=== PATIENT | male | born 1950 | race Caucasian/White ===

== ENCOUNTER 2021-09-20 10:36 | Outpatient (REF) | payer MEDICARE, SELFPAY ==
[2021-09-20 14:07] LABS: Hematocrit 40.9 % (42.0-52.0); Hemoglobin 14.1 g/dl (14.0-18.0); Mean Corpuscular HGB Conc 34.5 g/dl (31.0-36.0); Mean Corpuscular Hemoglobin 33.6 pg (27.0-33.0); Mean Corpuscular Volume 97.4 fL (80.0-98.0); Mean Platelet Volume 10.1 fL (9.4-12.4); Platelet Count 237 X10*3/uL (160-400); Red Cell Distribution Width 11.6 % (11.0-16.0); White Blood Count 4.8 X10*3/uL (4.8-10.8)
[2021-09-20 14:36] LABS: Alanine Aminotransferase 27 U/L (0-40); Albumin Level 4.3 g/dL (3.5-5.0); Alkaline Phosphatase 50 U/L (39-117); Anion Gap 10 (12-20); Aspartate Amino Transferase 22 U/L (5-37); Bilirubin Total 0.3 mg/dL (0.0-1.0); Blood Urea Nitrogen 13 mg/dL (9-16); Calcium 10.7 mg/dL (8.4-10.2); Carbon Dioxide 29 mmol/L (22-29); Chloride 102 mmol/L (96-108); Cholesterol 291 mg/dL; Estimated Glomerular Filt Rate > 60; Glucose Fasting 111 mg/dL (60-99); HDL Cholesterol 97 mg/dL; LDL Cholesterol Calculated 184 mg/dl; Potassium 4.9 mmol/L (3.3-5.1); Sodium 136 mmol/L (135-145); Total Protein 7.1 g/dL (6.5-8.0); Triglycerides 51 mg/dL
[2021-09-20 15:08] LABS: Prostate Specific Antigen 4.18 ng/mL (<0.05-4.0)
== END 2021-09-20 10:37 | disposition home or self-care (01) ==
LOC: HO.MANLDS 10:36
PROVIDERS: PCP Internal Medicine; Visit Provider Internal Medicine
DX: I10 Essential (primary) hypertension (principal); Z12.5 Encounter for screening for malignant neoplasm of prostate
CPT/HCPCS: 36415; 80053; 80061; 84153; 85027

== ENCOUNTER → 2022-11-09 10:07 | Outpatient (REF) | payer MEDICARE, SELFPAY ==
--- NOTE | 2022-11-09 10:18 | ECG_ITS ---
Test Reason : Superventricular Tachycardia Blood Pressure : / mmHG Vent. Rate : 097 BPM Atrial Rate : 097 BPM P-R Int : 188 ms QRS Dur : 086 ms QT Int : 324 ms P-R-T Axes : 072 066 068 degrees QTc Int : 411 ms Normal sinus rhythm Normal ECG No previous ECGs available Referred By: Jeffrey Gleason Electronically Signed By:ILYA LUNA
== END ==
LOC: HO.CARD 10:07
PROVIDERS: PCP Internal Medicine; Visit Provider Internal Medicine
DX: I47.1 Supraventricular tachycardia (principal)
CPT/HCPCS: 93005

== ENCOUNTER 2023-02-07 10:48 | Outpatient (REF) | payer MEDICARE, SELFPAY ==
[2023-02-07 13:12] LABS: Free T4 (Free Thyroxine) 0.97 ng/dL (0.71-1.85); Thyroid Stimulating Hormone 4.62 uIU/mL (0.32-4.0)
== END 2023-02-07 10:49 | disposition home or self-care (01) ==
LOC: HO.MANLDS 10:48
PROVIDERS: Visit Provider Physician Assistant
DX: Z79.899 Other long term (current) drug therapy (principal)
CPT/HCPCS: 36415; 84439; 84443

== ENCOUNTER 2023-02-20 09:09 | Outpatient (REF) | payer MEDICARE, SELFPAY ==
[2023-02-20 12:03] LABS: Prostate Specific Antigen 6.13 ng/mL (<0.05-4.0)
== END 2023-02-20 09:10 | disposition home or self-care (01) ==
LOC: HO.MANLDS 09:09
PROVIDERS: Visit Provider Physician Assistant
DX: Z12.5 Encounter for screening for malignant neoplasm of prostate (principal)
CPT/HCPCS: 36415; 84153

== ENCOUNTER 2023-04-20 09:51 | Outpatient (AMB) | payer MEDICARE, SELFPAY ==
--- NOTE | 2023-04-20 10:23 | MHC.OFFVIS ---
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[place] [facility] [place] Intake Note: NEw patient dx [place] [facility] [place] Event Producer Required: No Allergies amoxicillin [Augmentin] Allergy (Unknown, Verified 07/14/17 00:00) clavulanic acid [Augmentin] Allergy (Unknown, Verified 07/14/17 00:00) Medication List - Last Reconciled 04/20/23 by Naun Smith MD apixaban (Eliquis) 5 mg PO BID diltiazem HCl 180 mg PO DAILY folic acid 1 mg PO DAILY furosemide 40 mg PO DAILY pantoprazole 40 mg PO BID valsartan mg PO HPI HPI Comments History of Present Illness Details Thank you for referring Farhat in cardiology consultation today for management of atrial flutter. Patient is 72-year-old male with recent diagnosis of atrial flutter with LV systolic dysfunction when he presently him [facility] with symptoms of near syncope and rapid heart rate. He was diagnosed at that time with atrial flutter with rapid ventricular response and subsequent echocardiogram showed moderate LV systolic dysfunction with LVEF of 35-40%. He subsequently underwent a DANIKA guided cardioversion. At the time of DANIKA reported LV systolic function within normal limits. Although since then he has been started on oral anticoagulation therapy with Eliquis. He was also started on amiodarone therapy for rhythm control however this was recently discontinued by your office due to thyroid dysfunction. He also is currently not on metoprolol therapy again as he was interacting with amiodarone and giving in symptoms of fatigue. Since hospitalization has not had any further episodes of rapid heart rate and dizziness. However he says this episodes of rapid heart rate dizziness which were transient preceded this episode of hospitalization by many years. However he has never been diagnosed in the past with atrial flutter. He denies any exertional chest pain although he underwent a stress test recently which is suboptimal to diagnose ischemia with limited exercise capacity. Patient says since the hospitalizations back to his normal functional status and is able to do activity without restriction. Denies orthopnea, PND, leg edema. Currently on Lasix 40 mg says he goes to bathroom quite a bit. Review of Systems Const Denies chills, Denies daytime sleepiness, Denies fatigue, Denies fever(s), Denies frequent falls, Denies poor appetite, Denies snoring, Denies stops breathing during sleep, Denies weakness, Denies weight gain and Denies weight loss Eyes Denies loss of vision ENT Denies dizziness and Denies hearing loss Card Denies chest pain, Denies claudication, Denies leg edema, Denies lightheadedness, Denies palpitations, Denies dyspnea, Denies dyspnea on exertion and Denies orthopnea Resp Denies cough, Denies excessive phlegm production, Denies dyspnea, Denies dyspnea on exertion, Denies snoring and Denies wheezing GI Denies abdominal pain, Denies hematochezia, Denies change in bowel habits, Denies nausea and Denies vomiting Denies dysuria and Denies urinary frequency Musc Denies arthralgias, Denies muscle weakness, Denies numbness and Denies other (frequent falls) Skin/Breast Denies nail changes and Denies rash Neuro Denies Abnormal speech present, Denies dizziness, Denies frequent falls, Denies loss of vision, Denies memory loss, Denies numbness and Denies weakness Psych Denies depression and Denies memory loss Endo Denies fatigue and Denies palpitations Armond/Lymph Reports easy bruising and Reports other (anemia) Aller/Immun Denies wheezing Physical Exam Vital Signs: Last Vital Signs Pulse 62 04/20/23 10:27 BP 120/80 04/20/23 10:27 BMI result Body Mass Index 27.2 Const General: cooperative, comfortable, no acute distress, alert, awake and Physically active Nutritional Appearance: average body habitus Orientation/consciousness: patient oriented x3 Limitations: no limitations HEENT Head: Yes normocephalic and Yes atraumatic Neck Neck: Yes trachea midline, Yes supple and Yes no JVD Resp Effort & Inspection: normal respiratory effort Auscultation: clear to auscultation bilaterally Cardio Jugular venous distension: no JVD Palpation: normal PMI Rate: regular rate Rhythm: regular rhythm Heart sounds: S1 normal heart sound present, S2 normal heart sound present, no click, no gallops, no murmurs and no rubs GI Auscultation: normal bowel sounds Skin General skin exam: no rashes or lesions noted Neuro General: patient oriented x3 and no focal motor deficits Speech: No Abnormal speech present Extrem General: Yes no clubbing, cyanosis or edema Psych Appearance: grossly normal Office Procedures EKG Details: EKG shows normal sinus rhythm normal EKG at 62 beats per minute [id number], Complete Assessment & Plan Assessment & Plan (1) Paroxysmal atrial flutter: Code(s): I48.92 - Unspecified atrial flutter Plan: Patient with symptomatic atrial flutter leading to hospitalization with symptoms of rapid heart rate and near-syncope. His diagnosed with LV systolic dysfunction with subsequently undergoing DANIKA guided cardioversion. There was started amiodarone which has now discontinued because of thyroid dysfunction. Currently on diltiazem therapy. However he has done very well with rhythm control approach and has much improvement in symptoms. Will continue rhythm control approach. For now avoid antiarrhythmic drug unless he has recurrent symptoms at which time we can consider an alternative such as sotalol or Multaq. Continue to avoid stimulants including alcohol use. Continue full oral anticoagulation with Eliquis 5 mg b.i.d.. Semi annual renal function test should be pursued. Will obtain a 3 day Holter monitor in near future. 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 Although this is unclear. Would suggest exercise myocardial perfusion imaging rule out significant obstructive coronary disease. Also repeat echocardiogram near future to assess improvement in LV systolic function. For now continue valsartan therapy. He has no signs or symptoms of congestive heart failure. Will reduce Lasix to 20 mg daily and eventually if he remains euvolemic taper and discontinue diuretic therapy. Follow up in the clinic in 6 weeks time, sooner p.r.n.. Thank you for allowing me to partake in his care Orders: Orders CA echo limited Today I42.9 - Cardiomyopathy, unspecified CA stress test Today I48.92 - Unspecified atrial flutter NM cardiolite stress test 2 Weeks I48.92 - Unspecified atrial flutter, R07.9 - Chest pain, unspecified ECG 3 day holter monitor Today I48.92 - Unspecified atrial flutter Medications: New furosemide 20 mg PO DAILY Coding Level of Care Code New Pt Level 4 (48634) Diagnoses Paroxysmal atrial flutter I48.92 Cardiomyopathy I42.9 CPT Codes EKG - CPT: 80365-[id number], Complete ([id number])
[2023-04-20 10:27] VITALS: BP 120/80; PULSE 62; BMI 27.2
== END 2023-04-20 11:00 | disposition home or self-care (01) ==
PROVIDERS: PCP Internal Medicine; Referring Provider Internal Medicine; Visit Provider Internal Medicine Cardiovascular Disease
DX: I48.92 Unspecified atrial flutter (principal); I42.9 Cardiomyopathy, unspecified
CPT/HCPCS: 93010; 99204

== ENCOUNTER → 2023-04-20 09:51 | Outpatient (BNVA) | payer MEDICARE, SELFPAY | PROVIDERS: PCP Internal Medicine; Referring Provider Internal Medicine; Visit Provider Internal Medicine Cardiovascular Disease | DX: I48.92 Unspecified atrial flutter (principal); I42.9 Cardiomyopathy, unspecified | CPT/HCPCS: 93005; 99202 ==

== ENCOUNTER → 2023-05-08 09:30 | Outpatient (REF) | payer MEDICARE, SELFPAY ==
--- NOTE | ~2023-05-08 | NM_ITS ---
Myocardial perfusion study Indication: Chest pain to evaluate for myocardial ischemia Technique: The patient was brought in for a Lexiscan perfusion study on 05/08/2023. Patient performed low-level exercise and was injected 0.4 mg of Lexiscan intravenously. Within a minute of injection, 30 mCi of sestamibi was given intravenously. Images were obtained using the SPECT gamma camera interlaced with the gating device. Images were obtained in supine position. Resting perfusion study was performed on 05/10/2023. Patient was administered 30 mCi of sestamibi intravenously at rest. Images were then obtained in supine position. Images obtained with and without CT attenuation. Total DLP 76 mGy-cm. Images were processed with the software and compared side to side in short axis, horizontal long axis and vertical long axis views. Findings: The stress perfusion study showed non attenuated images show mildly reduced uptake in the basal and mid inferior wall of the LV myocardium. Main of the LV myocardium is normally perfused. Attenuation corrected images show normal uptake of radiotracer in all segments of LV myocardium. The gated study shows normal LV systolic function with calculated LVEF of 72%. LV cavity is normal size. The gated study shows normal systolic wall thickening and contraction of segments. Resting study shows no change in perfusion pattern compared to stress perfusion study. Gating at rest reveals normal systolic wall motion with ejection fraction at 59%. The findings are consistent with no reversible defect suggestive of ischemia or abnormal myocardial perfusion. NM/NM cardiolite stress test Impression: 1. Myocardial perfusion imaging study shows normal myocardial perfusion 2. Gated LVEF is 72% 3. Transient ischemic dilatation not present EKG is nondiagnostic for ischemia
--- NOTE | 2023-05-08 09:33 | CA_ITS ---
Acquisition Time: 2023-05-08 09:50:34 Total Exercise Time: 00:07:20 Test Indications: AFLUTTER Medications: SEE H Protocol: JEREMY Max HR: 131 BPM 87% of Pred: 149 BPM Max BP: 162/074 mmHG Max Work Load: 9.0 METS Exercise stress test exercise 7 min 20 sec of Jeremy protocol achieving 87% MPHR, with mild SOB, no chest discomfort, isolated PACs and one ventricular cuplet, with normotensive response to exercise, without EKG changes. Breathing returned to normal at rest.Nuclear images pending. Test reviewed with Dr. Luna. Referred By: Naun Smith Overread By: ILYA LUNA
== END ==
LOC: HO.CARD 09:30
PROVIDERS: PCP Internal Medicine; Visit Provider Internal Medicine Cardiovascular Disease
DX: R07.9 Chest pain, unspecified (principal); I48.92 Unspecified atrial flutter
CPT/HCPCS: 78452; 93017; A9500; J0280; J2785

== ENCOUNTER → 2023-05-08 09:43 | Outpatient (BNV) | payer MEDICARE, SELFPAY | PROVIDERS: PCP Internal Medicine; Visit Provider Internal Medicine Cardiovascular Disease | DX: I48.92 Unspecified atrial flutter (principal); R06.02 Shortness of breath | CPT/HCPCS: 78452; 93016; 93018 ==

== ENCOUNTER → 2023-05-16 14:06 | Outpatient (REF) | payer MEDICARE, SELFPAY ==
--- NOTE | 2023-05-16 14:08 | HM_ITS ---
* Total monitoring time 2 days and 18 hours. * Underlying rhythm is sinus. Average ventricular rate of 67/Min. * Evidence of atrial fibrillation with rapid ventricular response noted. [place] of 6.8%. Longest episode 4 hours and 30 minutes. Fastest 166Min. * Frequent supraventricular ectopy with burden of 7.2%. * Very rare ventricular ectopy. * No significant pauses or AV blocks. * Patient Marker count =1; in association with atrial fibrillation. * No diary events. MTDD
--- NOTE | 2023-05-16 14:08 | CA_ITS ---
Transthoracic Echocardiogram Patient (Last, First, Middle): Farhat Brock, Gender: Male Date of : 1950 Age: 72 Procedure Date: 05/16/2023 Procedure Type: Transthoracic Echocardiogram Location: OP Height: 180.34 cm Weight: 84.37 kg BSA: 2.04 m2 Heart Rate: bpm BP: 120 / 60 mmHg Tunnel Kiln Operator: JAMES Referring MD: Naun Smith MD Symptoms: I42.9 - Cardiomyopathy, unspecified Study Quality: Fair ECG Rhythm: Atrial Fibrillation Conclusions: - The left ventricular systolic function is normal. Visually estimated LVEF 50-60%. - Patient likely in atrial fibrillation with rapid rate during procedure, based on EKG tracings. Findings Left Ventricle Normal left ventricular cavity size. There is mildly increased left ventricular wall thickness. The left ventricular systolic function is normal. Visually estimated LVEF 50-60%. Aortic Valve There is moderate calcification of the aortic valve. Venous The inferior vena cava is normal in size and collapses greater than 50% with inspiration. Prior Study Comparison No prior study available for comparison. Measurements 2D Linear Measurements IVSd: 1.09 0.6-0.9/0.6-1.0 cm LVIDd: 3.78 3.9-5.3/4.2-5.9 cm LVIDd Index: 1.85 2.4-3.2/2.2-3.1 cm/m2 LVIDs: 2.47 2.0-3.6 cm LVPWd: 1.09 0.7-1.1 cm LV Mass: 164.01 67-162/88-224 g LV Mass Index: 80.40 43-95/49-115 g/m2 LVOT Diam: 2.40 3.0+(-)1.3 cm 2D Systolic Function EF 4C: 55.90 >55% EF 2C: 60.30 >55% EF BiP: 57.90 >55% LVOT LVOT Pk Gume: 0.60 LVOT Mn Gume: 0.41 LVOT VTI: 0.10 LVOT Pk Grad: 1.00 LVOT Mn Grad: 1.00 LVOT Diam: 2.40 LVOT Area: 4.52 Updated in Other Vendor System with Status of Final Fernando Canas MD electronically signed on 05/18/2023 10:03:25 AM with status of Final
== END ==
LOC: HO.CARD 14:06
PROVIDERS: PCP Internal Medicine; Visit Provider Internal Medicine Cardiovascular Disease
DX: I48.92 Unspecified atrial flutter (principal); I42.9 Cardiomyopathy, unspecified
CPT/HCPCS: 93242; 93308

== ENCOUNTER → 2023-05-16 14:08 | Outpatient (BNV) | payer MEDICARE, SELFPAY | PROVIDERS: PCP Internal Medicine; Visit Provider Internal Medicine | DX: I48.91 Unspecified atrial fibrillation (principal) | CPT/HCPCS: 93244; 93308 ==

== ENCOUNTER 2023-05-19 09:00 | Outpatient (REF) | payer MEDICARE, SELFPAY ==
[2023-05-19 11:18] LABS: Alanine Aminotransferase 23 U/L (0-40); Albumin Level 4.2 g/dL (3.5-5.0); Alkaline Phosphatase 61 U/L (39-117); Anion Gap 12 (12-20); Aspartate Amino Transferase 23 U/L (5-37); Bilirubin Total 0.5 mg/dL (0.0-1.0); Blood Urea Nitrogen 18 mg/dL (9-16); Calcium 10.8 mg/dL (8.4-10.2); Carbon Dioxide 25 mmol/L (22-29); Chloride 105 mmol/L (96-108); Estimated Glomerular Filt Rate > 60; Glucose Random 111 mg/dL (60-115); Potassium 4.2 mmol/L (3.3-5.1); Sodium 138 mmol/L (135-145); Total Protein 6.9 g/dL (6.5-8.0)
== END 2023-05-19 09:01 | disposition home or self-care (01) ==
LOC: HO.LAB 09:00
PROVIDERS: PCP Internal Medicine; Referring Provider Internal Medicine; Visit Provider Nurse Practitioner Family
DX: I48.92 Unspecified atrial flutter (principal); I42.9 Cardiomyopathy, unspecified; R94.31 Abnormal electrocardiogram [ECG] [EKG]
CPT/HCPCS: 36415; 80053; 83735; 93005; 99212

== ENCOUNTER 2023-05-19 09:00 | Outpatient (AMB) | payer MEDICARE, SELFPAY ==
--- NOTE | 2023-05-19 09:03 | A.OFFVIS_ITS ---
Intake Vital Signs 05/19/23 09:05 Height 5 ft 10 in Weight 191 lb 12.835 oz BMI 27.5 BP 120/72 Blood Pressure Location Lt brachial Position Sitting Pulse 59 Intake Visit Reasons: [facility] f/up w/ ekg per NS this wk Intake Note: [facility] f/up w ekg Resin Shaver Required: No Allergies amoxicillin [Augmentin] Allergy (Unknown, Verified 05/19/23 09:16) Hives clavulanic acid [Augmentin] Allergy (Unknown, Verified 05/19/23 09:16) Itchy Eyes Medication List - Last Reconciled 05/19/23 by Toshia Lopes, BOB-C apixaban (Eliquis) 5 mg PO BID diltiazem HCl 180 mg PO DAILY folic acid 1 mg PO DAILY furosemide 20 mg PO DAILY pantoprazole 40 mg PO BID valsartan mg PO HPI [facility] [place] w/ ekg per NS this wk HPI Details Farhat is a 72-year-old male with newer finding of symptomatic atrial flutter at [facility], with cardiomyopathy EF 35-40% requiring DANIKA cardioversion. He had been on amiodarone which has since been stopped due to thyroid issues. More recently he had an echocardiogram showing normal EF and ECG tracing at the time of his test showed atrial fib with RVR. Today he reports he has been feeling well. He has not felt any episodes recently - he describes that back in January he was getting episodes of lightheadedness and presyncope with physical activity. He does not notice heart palpitations. No chest discomfort at rest or with activity. No shortness of breath, PND, orthopnea or edema. He is currently wearing a Holter monitor and is scheduled to turn it in today. He does have some fatigue with activity at times which he does not feel is unusual. No bleeding issues reported. Taking all meds as directed. [facility] Medical History (Updated 05/19/23 @ 09:42 by Toshia Lopes, BOB-C) Cardiomyopathy Paroxysmal atrial flutter Social History (Updated 05/19/23 @ 09:43 by Toshia Lopes NP-C) Alcohol intake: former Substance Use Type: Marijuana Review of Systems Const All systems reviewed & are unremarkable except as noted in HPI and below ENT Denies dizziness Card Denies chest pain, Denies chest pain at rest, Denies chest pain with activity, Denies rapid heart rate, Denies pedal edema, Denies edema, Denies leg edema, Denies lightheadedness, Denies palpitations, Denies dyspnea, Denies dyspnea on exertion and Denies orthopnea Resp Denies cough, Denies dyspnea and Denies dyspnea on exertion GI Denies hematochezia and Denies change in stool character Musc Denies abnormal gait, Denies limited range of motion, Denies muscle cramps, Denies muscle weakness, Denies numbness, Denies radiating pain into limb, Denies stiffness and Denies tingling Neuro Denies abnormal gait, Denies dizziness, Denies numbness and Denies tingling Endo Denies palpitations Physical Exam Vital Signs: Last Vital Signs Pulse 59 05/19/23 09:05 BP 120/72 05/19/23 09:05 BMI result Body Mass Index 27.5 Const General: cooperative, healthy appearing, comfortable and no acute distress Orientation/consciousness: patient oriented x3 Neck Neck: Yes normal visual inspection Resp Effort & Inspection: normal respiratory effort Auscultation: clear to auscultation bilaterally, no crackles, no rales, no rhonchi and no wheezes Cardio Jugular venous distension: no JVD Rate: regular rate Rhythm: regular rhythm Heart sounds: S1 normal heart sound present, S2 normal heart sound present, no gallops, no murmurs and no rubs Neuro General: patient oriented x3 Extrem General: Yes normal to inspection Psych Appearance: grossly normal Mental Status: mental status grossly normal Speech and movement: Normal speech and movement present Office Procedures EKG Details: Today, read by me, sinus bradycardia, tall peaked T-waves noted, rate 59, QTC 392 milliseconds [id number], Complete Assessment & Plan Assessment & Plan (1) Paroxysmal atrial flutter: Comment: New finding 01/2023 Code(s): I48.92 - Unspecified atrial flutter Plan: New finding of paroxysmal atrial flutter 01/2023 when he presented to [facility] for symptoms dizziness, presyncope. Initial echo there showed LV dysfunction with EF 35-40%. He did undergo a DANIKA cardioversion which does state EF normal at that time. He had been on metoprolol and amiodarone for rate and rhythm control. His metoprolol was stopped due to fatigue. Notes indicate that amiodarone was stopped due to thyroid dysfunction. He was then put on diltiazem for heart rate control. He underwent a stress test on 05/08/2023 with exercise 7 minutes 20 seconds, mild shortness of breath, no EKG changes of ischemia and normal myocardial perfusion imaging. His echocardiogram was done 05/16/2023 showing EF 55-60% he was noted to be in AFib RVR at that time. An outpatient Holter monitor was ordered and he is currently still wearing. He is scheduled to turn that in today. His EKG done today is showing sinus bradycardia with tall peaked T-waves present, rate 59. He denies any concerning symptoms. He has not had any recurrent dizziness or presyncope in recent months. Will have him continue on diltiazem CD 180 mg daily. Continue Eliquis for anticoagulation. No bleeding issues reported. Will check labs today including CMP and magnesium. He continues on valsartan and low-dose Lasix at present. Plan to call him with lab results. When Holter results reviewed further treatment plan to be determined. Cardiology office visit in 6 weeks, sooner if need (2) Cardiomyopathy: Comment: EF 35-40% on [facility] echo 01/20/2023 Code(s): I42.9 - Cardiomyopathy, unspecified Plan: Resolved, as above. Continue valsartan (3) Abnormal EKG: Code(s): R94.31 - Abnormal electrocardiogram [ECG] [EKG] Plan: As above, peaked T-waves Orders: Orders Comprehensive Met. Panel Today R94.31 - Abnormal electrocardiogram [ECG] [EKG] Magnesium Today R94.31 - Abnormal electrocardiogram [ECG] [EKG] Coding Level of Care Code Est Pt Level 4 (55054) Diagnoses Paroxysmal atrial flutter I48.92 Cardiomyopathy I42.9 Abnormal EKG R94.31 CPT Codes EKG - CPT: 05741-[id number], Complete ([id number]) Time Spent (min) 28 Comment Chart review, documentation, interview, assessed
[2023-05-19 09:05] VITALS: BP 120/72; PULSE 59; BMI 27.5
== END 2023-05-19 09:41 | disposition home or self-care (01) ==
PROVIDERS: PCP Internal Medicine; Referring Provider Internal Medicine; Visit Provider Nurse Practitioner Family
DX: I48.92 Unspecified atrial flutter (principal); I42.9 Cardiomyopathy, unspecified; R94.31 Abnormal electrocardiogram [ECG] [EKG]
CPT/HCPCS: 93010; 99214

== ENCOUNTER 2023-06-30 09:30 | Outpatient (AMB) | payer MEDICARE, SELFPAY ==
--- NOTE | 2023-06-30 09:33 | MHC.OFFVIS ---
Intake Vital Signs 06/30/23 09:34 Height 5 ft 10 in Weight 192 lb 10.944 oz BMI 27.6 BP 122/70 Blood Pressure Location Lt brachial Position Sitting Pulse 67 Pulse Source Pulse Oximeter Intake Visit Reasons: 6 week follow up after testing Intake Note: 6 week f/u Revenue Cycle Analyst Required: No Allergies amoxicillin [Augmentin] Allergy (Unknown, Verified 06/30/23 09:39) Hives clavulanic acid [Augmentin] Allergy (Unknown, Verified 06/30/23 09:39) Itchy Eyes tamsulosin Allergy (Verified 06/30/23 09:40) Blister Medication List - Last Reconciled 06/30/23 by Toshia Lopes NP-C apixaban (Eliquis) 5 mg PO BID diltiazem HCl 180 mg PO DAILY folic acid 1 mg PO DAILY furosemide 20 mg PO DAILY metoprolol succinate ER 25 mg PO DAILY pantoprazole 40 mg PO BID valsartan mg PO HPI 6 week follow up after testing HPI Details Farhat is a 72-year-old male with newer finding of symptomatic atrial flutter at [facility], with cardiomyopathy EF 35-40% requiring DANIKA cardioversion. He had been on amiodarone which has since been stopped due to thyroid issues. More recently he had an echocardiogram showing normal EF and ECG tracing at the time of his test showed atrial fib with RVR. A cardiac stress test and Holter monitor were done and he now presents for follow-up. Today he reports that he has been feeling well recently. He has not had any episodes of his lightheadedness or presyncope. He feels the medications are working well to control his symptoms. He denies any heart palpitations. Has no chest discomfort at rest or with activity. He denies shortness of breath, PND, orthopnea or edema. No presyncope, syncope, falls. He reports good activity tolerance. He stays busy during the day, and recently built a chicken coop. He has not been drinking any alcohol since January 2023. Taking meds as directed. No bleeding issues reported. [facility] Medical History Cardiomyopathy Paroxysmal atrial flutter Social History Alcohol intake: former Substance Use Type: Marijuana Review of Systems Const All systems reviewed & are unremarkable except as noted in HPI and below ENT Denies dizziness Card Denies chest pain, Denies chest pain at rest, Denies chest pain with activity, Denies rapid heart rate, Denies pedal edema, Denies edema, Denies leg edema, Denies lightheadedness, Denies palpitations, Denies dyspnea, Denies dyspnea on exertion and Denies orthopnea Resp Denies cough, Denies dyspnea and Denies dyspnea on exertion GI Denies hematochezia and Denies change in stool character Musc Denies abnormal gait, Denies limited range of motion, Denies muscle cramps, Denies muscle weakness, Denies numbness, Denies radiating pain into limb, Denies stiffness and Denies tingling Neuro Denies abnormal gait, Denies dizziness, Denies numbness and Denies tingling Endo Denies palpitations Physical Exam Vital Signs: Last Vital Signs Pulse 67 06/30/23 09:34 BP 122/70 06/30/23 09:34 BMI result Body Mass Index 27.6 Const General: cooperative, healthy appearing, comfortable and no acute distress Orientation/consciousness: patient oriented x3 Neck Neck: Yes normal visual inspection Resp Effort & Inspection: normal respiratory effort Auscultation: clear to auscultation bilaterally, no crackles, no rales, no rhonchi and no wheezes Cardio Jugular venous distension: no JVD Rate: regular rate Rhythm: regular rhythm Heart sounds: S1 normal heart sound present, S2 normal heart sound present, no murmurs and no rubs Neuro General: patient oriented x3 Extrem General: Yes normal to inspection Psych Appearance: grossly normal Mental Status: mental status grossly normal Speech and movement: Normal speech and movement present Assessment & Plan Assessment & Plan (1) Paroxysmal atrial flutter: Comment: New finding 01/2023 Code(s): I48.92 - Unspecified atrial flutter Plan: New finding of paroxysmal atrial flutter 01/2023 when he presented to [facility] for symptoms dizziness, presyncope. Initial echo there showed LV dysfunction with EF 35-40%. He did undergo a DANIKA cardioversion which does state EF normal at that time. He had been on metoprolol and amiodarone for rate and rhythm control. His metoprolol was stopped due to fatigue. Notes indicate that amiodarone was stopped due to thyroid dysfunction. He was then put on diltiazem for heart rate control. He underwent a stress test on 05/08/2023 with exercise 7 minutes 20 seconds, mild shortness of breath, no EKG changes of ischemia and normal myocardial perfusion imaging. His echocardiogram was done 05/16/2023 showing EF 55-60% he was noted to be in AFib RVR at that time. An outpatient Holter monitor was done on 05/16/2023 for nearly 3 days showing sinus rhythm with average heart rate 67, PAF 6.8% of time, SVE, frequent, 7.2% of time. Metoprolol was added to his diltiazem. He now reports feeling good with no recent symptoms of dizziness, presyncope. He denies any heart palpitations. He continues on valsartan and low-dose Lasix at present. Blood pressure is well controlled. With his normal EF will have him change Lasix to as needed. Signs and symptoms of heart failure reviewed with him and he will resume Lasix if he has shortness of breath, weight gain or edema. Continue current management for AFib including the metoprolol, diltiazem and use of Eliquis for anticoagulation. Cardiology follow-up in 4 months, sooner if needed. Holter monitor will be checked prior to that visit to assess control of arrhythmias. (2) Cardiomyopathy: Comment: EF 35-40% on [facility] echo 01/20/2023 Code(s): I42.9 - Cardiomyopathy, unspecified Plan: Resolved, as above. Continue valsartan and metoprolol Orders: Orders ECG 3 day holter monitor 10/23/23 I48.92 - Unspecified atrial flutter Coding Level of Care Code Est Pt Level 3 (40667) Diagnoses Paroxysmal atrial flutter I48.92 Cardiomyopathy I42.9 Time Spent (min) 24
[2023-06-30 09:34] VITALS: BP 122/70; PULSE 67; BMI 27.6
== END 2023-06-30 10:13 | disposition home or self-care (01) ==
PROVIDERS: PCP Internal Medicine; Visit Provider Nurse Practitioner Family
DX: I48.92 Unspecified atrial flutter (principal); I42.9 Cardiomyopathy, unspecified
CPT/HCPCS: 99213

== ENCOUNTER → 2023-06-30 09:30 | Outpatient (BNVA) | payer MEDICARE, SELFPAY | PROVIDERS: PCP Internal Medicine; Visit Provider Nurse Practitioner Family | DX: I48.92 Unspecified atrial flutter (principal); I42.9 Cardiomyopathy, unspecified | CPT/HCPCS: 99212 ==

== ENCOUNTER 2023-11-09 09:53 | Outpatient (AMB) | payer MEDICARE, SELFPAY ==
[2023-11-09 10:00] VITALS: BP 120/70; PULSE 69; BMI 28.8
--- NOTE | 2023-11-09 10:00 | A.OFFVIS_ITS ---
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: No Allergies amoxicillin [Augmentin] Allergy (Unknown, Verified 11/09/23 10:02) Hives clavulanic acid [Augmentin] Allergy (Unknown, Verified 11/09/23 10:02) Itchy Eyes tamsulosin Allergy (Verified 11/09/23 10:02) Blister Medication List - Last Reconciled 11/09/23 by Toshia Lopes NP-C apixaban (Eliquis) 5 mg PO BID diltiazem HCl 180 mg PO DAILY folic acid 1 mg PO DAILY furosemide 20 mg PO DAILY metoprolol succinate ER 25 mg PO DAILY pantoprazole 40 mg PO BID valsartan mg PO HPI 4m follow up HPI Details Moses is a 73-year-old male with newer finding of symptomatic atrial fibrillation at [facility] with cardiomyopathy, EF 35-40% requiring DANIKA cardioversion at that time. He initially was put on amiodarone which was then stopped due to thyroid issues. He did have follow-up echocardiogram showing normalization of EF and EKG tracing at time of echo showed AFib. A Holter monitor confirmed paroxysmal AFib. He was put on metoprolol and diltiazem to help with rate control. Today he reports that he will feel heart palpitations on occasion. He describes an episode last evening when he rolled over in bed and felt his heartbeat fast for a few seconds. He has not had any lightheadedness, presyncope, syncope, falls. No chest discomfort at rest or with activity. He does describe some epigastric discomfort when he is bending or sitting on his couch. Describes having a hiatal hernia and believes it is symptomatic. No shortness of breath, PND, orthopnea or edema. He drank 6 beers yesterday which is a lot for him. He says in the last year he has probably had 40 beers total. Taking his meds as directed. No bleeding issues reported. [facility] Medical History Cardiomyopathy Paroxysmal atrial flutter Social History Alcohol intake: former Substance Use Type: Marijuana Review of Systems Const All systems reviewed & are unremarkable except as noted in HPI and below ENT Denies dizziness Card Denies chest pain, Denies chest pain at rest, Denies chest pain with activity, R eports rapid heart rate, Denies pedal edema, Denies edema, Denies leg edema, Denies lightheadedness, Denies palpitations, Denies dyspnea, Denies dyspnea on exertion and Denies orthopnea Resp Denies cough, Denies dyspnea and Denies dyspnea on exertion GI Details: epigastric discomfort with bending and sitting on couch. Reports belching, Denies hematochezia and Denies change in stool character Musc Denies abnormal gait, Denies limited range of motion, Denies muscle cramps, Denies muscle weakness, Denies numbness, Denies radiating pain into limb, Denies stiffness and Denies tingling Neuro Denies abnormal gait, Denies dizziness, Denies numbness and Denies tingling Endo Denies palpitations Physical Exam Vital Signs: Last Vital Signs Pulse 69 11/09/23 10:00 BP 120/70 11/09/23 10:00 BMI result Body Mass Index 28.8 Const General: cooperative, healthy appearing, comfortable and no acute distress Orientation/consciousness: patient oriented x3 Neck Neck: Yes normal visual inspection Resp Effort & Inspection: normal respiratory effort Auscultation: clear to auscultation bilaterally, no crackles, no rales, no rhonchi and no wheezes Cardio Jugular venous distension: no JVD Rate: regular rate Rhythm: abnormal rhythm Heart sounds: S1 normal heart sound present, S2 normal heart sound present, no murmurs and no rubs Neuro General: patient oriented x3 Extrem General: Yes normal to inspection Psych Appearance: grossly normal Mental Status: mental status grossly normal Speech and movement: Normal speech and movement present Office Procedures EKG Details: Today, read by me, SR with PACs in bigeminy pattern, rate 69, QTc 387ms [id number], Complete Assessment & Plan Assessment & Plan (1) Paroxysmal atrial flutter: Comment: New finding 01/2023 Code(s): I48.92 - Unspecified atrial flutter Plan: New finding of paroxysmal atrial flutter 01/2023 when he presented to [facility] for symptoms dizziness, presyncope. Initial echo there showed LV dysfunction with EF 35-40%. He did undergo a DANIKA cardioversion which does state EF normal at that time. He had been on metoprolol and amiodarone for rate and rhythm control. His metoprolol was stopped due to fatigue. Notes indicate that amiodarone was stopped due to thyroid dysfunction. He was then put on diltiazem for heart rate control. He underwent a stress test on 05/08/2023 with exercise 7 minutes 20 seconds, mild shortness of breath, no EKG changes of ischemia and normal myocardial perfusion imaging. His echocardiogram was done 05/16/2023 showing EF 55-60% he was noted to be in AFib RVR at that time. An outpatient Holter monitor was done on 05/16/2023 for nearly 3 days showing sinus rhythm with average heart rate 67, PAF 6.8% of time, SVE, frequent, 7.2% of time. Metoprolol was added to his diltiazem. EKG done today showing sinus rhythm with PACs in bigeminy pattern, rate 69. He will feel occasional heart palpitations, mostly brief. No dizziness, presyncope. Will check Holter monitor to assess frequency of paroxysmal atrial fibrillation and PACs. He does report a history of sleep apnea in the past when he was drinking more alcohol. At is time will check a home sleep study to evaluate degree of sleep apnea as this can affect his frequency for atrial fibrillation. Instructed on complete cessation of alcohol use. Continue current med management for AFib including the metoprolol, diltiazem and use of Eliquis for anticoagulation. Cardiology follow-up in 6-8 weeks, sooner if needed. (2) Cardiomyopathy: Comment: EF 35-40% on [facility] echo 01/20/2023 Code(s): I42.9 - Cardiomyopathy, unspecified Plan: Resolved, as above. Continue valsartan and metoprolol. (3) Sleep apnea: Code(s): G47.30 - Sleep apnea, unspecified Plan: Reported history. Checking home sleep study to evaluate degree of sleep apnea Plan Time spent on chart review, documentation, interview and assessment Orders: Orders RT home sleep study Today G47.30 - Sleep apnea, unspecified Coding Level of Care Code Est Pt Level 4 (95018) Diagnoses Paroxysmal atrial flutter I48.92 Cardiomyopathy I42.9 Sleep apnea G47.30 CPT Codes EKG - CPT: 23379-[id number], Complete ([id number]) Time Spent (min) 28
== END 2023-11-09 10:32 | disposition home or self-care (01) ==
PROVIDERS: PCP Internal Medicine; Visit Provider Nurse Practitioner Family
DX: I48.92 Unspecified atrial flutter (principal); I42.9 Cardiomyopathy, unspecified; G47.30 Sleep apnea, unspecified
CPT/HCPCS: 93010; 99214

== ENCOUNTER → 2023-11-09 09:53 | Outpatient (BNVA) | payer MEDICARE, SELFPAY | PROVIDERS: PCP Internal Medicine; Visit Provider Nurse Practitioner Family | DX: I48.92 Unspecified atrial flutter (principal); I42.9 Cardiomyopathy, unspecified; G47.30 Sleep apnea, unspecified | CPT/HCPCS: 93005; 99212 ==

== ENCOUNTER 2023-11-29 08:35 | Outpatient (REF) | payer MEDICARE, SELFPAY ==
[2023-11-29 13:03] LABS: MANUAL DIFF FLAG NO
[2023-11-29 13:32] LABS: Alanine Aminotransferase 20 U/L (0-40); Albumin Level 4.2 g/dL (3.5-5.0); Alkaline Phosphatase 64 U/L (39-117); Amylase 51 U/L (28-100); Anion Gap 9 (12-20); Aspartate Amino Transferase 22 U/L (5-37); Bilirubin Total 0.7 mg/dL (0.0-1.0); Blood Urea Nitrogen 17 mg/dL (9-16); Calcium 10.7 mg/dL (8.4-10.2); Carbon Dioxide 30 mmol/L (22-29); Chloride 104 mmol/L (96-108); Cholesterol 258 mg/dL (<200); Estimated Glomerular Filt Rate > 60; Gamma Glutamyl Transpeptidase 21 U/L (11-51); Glucose Random 115 mg/dL (60-115); HDL Cholesterol 79 mg/dL (>40); LDL Cholesterol Calculated 165 mg/dL (<100); Lipase 21 U/L (8-78); Potassium 4.7 mmol/L (3.3-5.1); Sodium 138 mmol/L (135-145); Triglycerides 70 mg/dL (<150)
[2023-11-29 13:37] LABS: Basophils Percent Auto 0.6 % (0-2); Eosinophils Absolute Auto 0.1 X10*3/uL (0.0-0.4); Eosinophils Percent Auto 1.4 % (0-4); Hematocrit 43.3 % (42.0-52.0); Hemoglobin 14.8 g/dl (14.0-18.0); Imm Gran Abs Auto 0.01 X10*3/uL (0.00-0.03); Imm Gran Pct Auto 0.2 % (0.0-0.4); Lymphocytes Absolute Auto 1.6 X10*3/uL (1.2-4.9); Lymphocytes Percent Auto 31.5 % (20-40); Mean Corpuscular HGB Conc 34.2 g/dl (31.0-36.0); Mean Corpuscular Hemoglobin 31.9 pg (27.0-33.0); Mean Corpuscular Volume 93.3 fL (80.0-98.0); Mean Platelet Volume 10.3 fL (9.4-12.4); Monocytes Absolute Auto 0.6 X10*3/uL (0.1-1.2); Monocytes Percent Auto 11.7 % (2-11); Neutrophils Absolute Auto 2.8 x10*3/uL (2.0-8.3); Neutrophils Percent Auto 54.6 % (45-73); Platelet Count 237 X10*3/uL (160-400); Red Blood Count 4.64 X10*6/uL (4.60-5.80); Red Cell Distribution Width 12.4 % (11.0-16.0)
[2023-11-29 13:46] LABS: Prostate Specific Antigen 8.17 ng/mL (<0.05-4.0)
[2023-11-29 13:49] LABS: Free T4 (Free Thyroxine) 0.83 ng/dL (0.71-1.85); Thyroid Stimulating Hormone 4.73 uIU/mL (0.32-4.0)
[2023-11-29 14:09] LABS: Parathyroid Hormone Intact 154.8 pg/mL (8.7-77.1)
[2023-11-29 15:07] LABS: Estimated Average Glucose 103 mg/dL; Hemoglobin A1C 125.2341 umol/L; Hemoglobin A1c % 5.2 % (<6.0)
== END 2023-11-29 08:36 | disposition home or self-care (01) ==
LOC: HO.MANLDS 08:35
PROVIDERS: Visit Provider Physician Assistant
DX: Z12.5 Encounter for screening for malignant neoplasm of prostate (principal); Z13.6 Encounter for screening for cardiovascular disorders; R73.01 Impaired fasting glucose; K59.00 Constipation, unspecified; R97.20 Elevated prostate specific antigen [PSA]
CPT/HCPCS: 36415; 80053; 80061; 82150; 82977; 83036; 83690; 83970; 84153; 84439; 84443; 85025

== ENCOUNTER 2023-12-12 13:33 | Outpatient (REF) | payer MEDICARE, SELFPAY ==
--- NOTE | ~2023-12-12 | US_ITS ---
EXAMINATION: US THYROID CLINICAL INFORMATION: Hyperparathyroidism. COMPARISON: None available. TECHNIQUE: Linear transducer grayscale and color Doppler examination with attention to the region of the thyroid. FINDINGS: SIZE: Measurements of the thyroid lobes and nodules are given in sagittal, anteroposterior and transverse dimensions respectively. Right Thyroid Lobe: 4.5 x 1.7 x 1.6 cm, volume 6.3 mL. Parenchyma: The gland echotexture is homogeneous. Thyroid vascularity is normal. Left Thyroid Lobe: 4.2 x 1.4 x 1.5 cm, volume 4.9 mL. Parenchyma: The gland echotexture is homogeneous. Thyroid vascularity is normal. Isthmus: 0.7 cm in maximum AP dimension. No suspicious thyroid nodule is seen. NODES: No lymphadenopathy is seen in the tissue surrounding the thyroid gland. Parathyroid glands were not visualized. US/US thyroid IMPRESSION: No suspicious thyroid nodules. ACR TI-RADS RECOMMENDATION REFERENCE: Ultrasound-guided fine-needle aspiration, followup ultrasound, no further follow up. * TR1 (0 point) and TR2 (2 points): No FNA or follow up. * TR3 (3 points): FNA if more than or equal to 2.5 cm in maximum dimension, followup ultrasound in 1, 3 and 5 years if 1.5 to 2.4 cm in maximum dimension. * TR4 (4-6 points): FNA if more than or equal to 1.5 cm in maximum dimension, followup ultrasound in 1, 2, 3 and 5 years if 1 to 1.4 cm in maximum dimension. * TR5 (more than or equal to 7 points): FNA if more than or equal to 1 cm in maximum dimension, followup ultrasound every year for 5 years if 0.5 to 0.9 cm in maximum dimension. * TR3, TR4 or TR5 nodules that are below the size threshold for followup receive no followup.
== END 2023-12-12 13:34 | disposition home or self-care (01) ==
LOC: HO.US 13:33
PROVIDERS: PCP Internal Medicine; Visit Provider Internal Medicine
DX: E21.3 Hyperparathyroidism, unspecified (principal)
CPT/HCPCS: 76536

== ENCOUNTER → 2023-12-20 10:02 | Outpatient (REF) | payer MEDICARE, SELFPAY ==
--- NOTE | 2023-12-20 10:06 | HM_ITS ---
Conclusion: 1. Patient was monitored for total period of 2 days and 12 hours 2. Baseline was atrial flutter with average heart of 98 beats per minute inadequate rate control with 37% of time heart rate about 100 beats per minute 3. No significant pauses noted 4. Occasional PVCs noted 5. Patient reported 1 event that correlated with PVC MTDD
== END ==
LOC: HO.CARD 10:02
PROVIDERS: PCP Internal Medicine; Visit Provider Nurse Practitioner Family
DX: I48.92 Unspecified atrial flutter (principal)
CPT/HCPCS: 93242

== ENCOUNTER → 2023-12-20 10:06 | Outpatient (BNV) | payer MEDICARE, SELFPAY | PROVIDERS: PCP Internal Medicine; Visit Provider Internal Medicine Cardiovascular Disease | DX: I48.92 Unspecified atrial flutter (principal) | CPT/HCPCS: 93244 ==

== ENCOUNTER 2023-12-28 09:32 | Outpatient (AMB) | payer MEDICARE, SELFPAY ==
[2023-12-28 09:34] VITALS: BP 100/62; PULSE 96; BMI 28.5
--- NOTE | 2023-12-28 09:34 | A.OFFVIS_ITS ---
Intake Vital Signs 12/28/23 09:34 Height 5 ft 10 in Weight 198 lb 13.711 oz BMI 28.5 BP 100/62 Blood Pressure Location Lt brachial Position Sitting Pulse 96 Pulse Source Pulse Oximeter Intake Visit Reasons: 6 week follow up Physical Anthropologist Required: No Allergies amoxicillin [Augmentin] Allergy (Unknown, Verified 12/28/23 09:38) Hives clavulanic acid [Augmentin] Allergy (Unknown, Verified 12/28/23 09:38) Itchy Eyes tamsulosin Allergy (Verified 12/28/23 09:38) Blister Medication List - Last Reconciled 12/28/23 by Toshia Lopes NP-C apixaban (Eliquis) 5 mg PO BID diltiazem HCl CD 180 mg PO DAILY folic acid 1 mg PO DAILY metoprolol succinate ER 25 mg PO DAILY pantoprazole 40 mg PO BID valsartan mg PO HPI 6 week follow up HPI Details Moses is a 73-year-old male with newer finding of symptomatic atrial fibrillation at [facility] with cardiomyopathy, EF 35-40% requiring DANIKA cardioversion at that time. He initially was put on amiodarone which was then stopped due to thyroid issues. He did have follow-up echocardiogram showing normalization of EF and EKG tracing at time of echo showed AFib. A Holter monitor confirmed paroxysmal AFib. He was put on metoprolol and diltiazem to help with rate control. Today he presents for follow-up after repeat echo Today he reports that he will feel heart palpitations on rare occasion. He has not had any lightheadedness, presyncope, syncope, falls. No chest discomfort at rest or with activity. He does describe some epigastric discomfort when he is bending or sitting on his couch. Describes having a hiatal hernia and believes it is symptomatic. No shortness of breath, PND, orthopnea or edema. Rare alcohol use. He says in last year he has probably had 40 beers total. Taking his meds as directed. No bleeding issues reported. [facility] Medical History Cardiomyopathy Paroxysmal atrial flutter Social History Alcohol intake: former Substance Use Type: Marijuana Review of Systems ENT Reports dizziness Card Denies chest pain, Denies chest pain at rest, Denies chest pain with activity, Denies rapid heart rate, Denies pedal edema, Denies edema, Denies leg edema, Denies lightheadedness, Denies palpitations, Denies dyspnea, Denies dyspnea on exertion and Denies orthopnea Resp Denies cough, Denies dyspnea and Denies dyspnea on exertion GI Denies hematochezia and Denies change in stool character Musc Denies abnormal gait, Reports limited range of motion, Reports muscle cramps, Denies muscle weakness, Denies numbness, Denies radiating pain into limb, Denies stiffness and Denies tingling Neuro Denies abnormal gait, Reports dizziness, Denies numbness and Denies tingling Endo Denies palpitations Physical Exam Vital Signs: Last Vital Signs Pulse 96 12/28/23 09:34 BP 100/62 12/28/23 09:34 BMI result Body Mass Index 28.5 Const General: cooperative, healthy appearing, comfortable and no acute distress Orientation/consciousness: patient oriented x3 Neck Neck: Yes normal visual inspection and Yes no JVD Resp Effort & Inspection: normal respiratory effort Auscultation: clear to auscultation bilaterally, no crackles, no rales, no rhonchi and no wheezes Cardio Jugular venous distension: no JVD Rate: regular rate Rhythm: abnormal rhythm Heart sounds: S1 normal heart sound present, S2 normal heart sound present, no gallops, no murmurs and no rubs Neuro General: patient oriented x3 Extrem General: Yes normal to inspection, No no pedal edema and No calf tenderness Psych Appearance: grossly normal Mental Status: mental status grossly normal Speech and movement: Normal speech and movement present Office Procedures EKG Details: Today, read by me, atrial flutter with variable AV block, rate 96, QTC 429 milliseconds [id number], Complete Assessment & Plan Assessment & Plan (1) Paroxysmal atrial flutter: Comment: New finding 01/2023 Code(s): I48.92 - Unspecified atrial flutter Plan: New finding of paroxysmal atrial flutter 01/2023 when he presented to [facility] for symptoms dizziness, presyncope. Initial echo there showed LV dysfunction with EF 35-40%. He did undergo a DANIKA cardioversion which does state EF normal at that time. He had been on metoprolol and amiodarone for rate and rhythm control. His metoprolol was stopped due to fatigue. Notes indicate that amiodarone was stopped due to thyroid dysfunction. He was then put on diltiazem for heart rate control. He underwent a stress test on 05/08/2023 with exercise 7 minutes 20 seconds, mild shortness of breath, no EKG changes of ischemia and normal myocardial perfusion imaging. His echocardiogram was done 05/16/2023 showing EF 55-60% he was noted to be in AFib RVR at that time. An outpatient Holter monitor was done on 05/16/2023 for nearly 3 days showing sinus rhythm with average heart rate 67, PAF 6.8% of time, SVE, frequent, 7.2% of time. Metoprolol was added to his diltiazem. EKG done last visit showing sinus rhythm with PACs in bigeminy pattern, rate 69. He will feel occasional heart palpitations. Repeat Holter monitor done on 12/20/2023 for 2.5 days shows atrial flutter with average heart rate 98 per, 37% of time heart rate over 100, occasional PVC. He does report a history of sleep apnea in the past when he was drinking more alcohol. At this time he does not believe that sleep apnea is an issue. Home sleep study had been ordered however he does not want to complete. With history of cardiomyopathy likely related to AFib RVR will plan for a cardioversion to maintain rhythm control. Procedure reviewed with him in detail and he states understanding and is agreeable to proceed He has been compliant with his anticoagulation without interruption. Will start on Multaq 400 mg b .i.d. at this time. Office EKG in 5 days. If heart rate running low may need to reduce metoprolol or diltiazem at that time. Cardiology follow-up 2 weeks post cardioversion. (2) Cardiomyopathy: Comment: EF 35-40% on [facility] echo 01/20/2023 Code(s): I42.9 - Cardiomyopathy, unspecified Plan: EF had normalized however now back in atrial flutter. Will pursue rhythm control with Multaq and cardioversion. No signs of decompensated heart failure on exam. Continue valsartan and metoprolol. (3) Sleep apnea: Code(s): G47.30 - Sleep apnea, unspecified Plan: Reported history. He declines sleep study Plan Time spent on chart review, documentation, interview and assessment Orders: Orders Cardioversion Today I48.92 - Unspecified atrial flutter Medications: New dronedarone (Multaq) must administer with a meal/food 400 mg PO BID 60 tabs 5RF Coding Level of Care Code Est Pt Level 4 (68929) Diagnoses Paroxysmal atrial flutter I48.92 Cardiomyopathy I42.9 Sleep apnea G47.30 CPT Codes EKG - CPT: 88383-[id number], Complete ([id number]) Time Spent (min) 35
== END 2023-12-28 10:33 | disposition home or self-care (01) ==
PROVIDERS: PCP Internal Medicine; Visit Provider Nurse Practitioner Family
DX: I48.92 Unspecified atrial flutter (principal); I42.9 Cardiomyopathy, unspecified; G47.30 Sleep apnea, unspecified
CPT/HCPCS: 93010; 99214

== ENCOUNTER → 2023-12-28 09:32 | Outpatient (BNVA) | payer MEDICARE, SELFPAY | PROVIDERS: PCP Internal Medicine; Visit Provider Nurse Practitioner Family | DX: I48.92 Unspecified atrial flutter (principal); I42.9 Cardiomyopathy, unspecified | CPT/HCPCS: 93005; 99212 ==

== ENCOUNTER 2024-01-02 10:18 | Outpatient (AMB) | payer MEDICARE, SELFPAY ==
--- NOTE | 2024-01-02 10:27 | AM.OFFVISNUR ---
Intake Intake Visit Reasons: ekg only new on Multaq Allergies amoxicillin [Augmentin] Allergy (Unknown, Verified 12/28/23 09:38) Hives clavulanic acid [Augmentin] Allergy (Unknown, Verified 12/28/23 09:38) Itchy Eyes tamsulosin Allergy (Verified 12/28/23 09:38) Blister Nursing Note PT is here for Nurse Visit with EKG PT continues to take Dronedarone (Multaq) 400 mg PO BID EKG is left on Ortega Smith desk for review Office Procedures EKG [id number], Complete Coding CPT Codes EKG - CPT: 51431-[id number], Complete ([id number])
== END 2024-01-02 10:45 | disposition home or self-care (01) ==
PROVIDERS: PCP Internal Medicine; Visit Provider Nurse Practitioner Family
DX: I48.92 Unspecified atrial flutter (principal)
CPT/HCPCS: 93010

== ENCOUNTER → 2024-01-02 10:18 | Outpatient (BNVA) | payer MEDICARE, SELFPAY | PROVIDERS: PCP Internal Medicine; Visit Provider Nurse Practitioner Family | DX: I48.92 Unspecified atrial flutter (principal); I44.39 Other atrioventricular block; R94.31 Abnormal electrocardiogram [ECG] [EKG] | CPT/HCPCS: 93005 ==

== ENCOUNTER 2024-01-10 07:31 | Day surgery (SDC) | payer MEDICARE, SELFPAY ==
--- NOTE | 2024-01-08 12:31 | HO.ANESPROP2 ---
HPI - Anesthesia Eval Consult details Narrative: 73yo M for Cardioversion Reinaldo HOOVER Active Problems Active Problems: All Active Problems Atrial flutter (Acute) Sleep apnea (Acute) Paroxysmal atrial flutter (Acute) Cardiomyopathy (Acute) Abnormal EKG (Acute) Past Medical History Medical History (Updated 01/10/24 @ 08:10 by Kristie Galaviz RN) History of cardioversion GERD (gastroesophageal reflux disease) Cardiomyopathy Paroxysmal atrial flutter Surgical History Surgical History Hx of prior ablation treatment Hx of inguinal hernia repair Social History Social History Alcohol intake: former Patient Tobacco Use Status: Former Tobacco user Quit Date: Substance Use Type: Marijuana Meds Allergies Allergy/AdvReac Type Severity Reaction Status Date / Time amoxicillin [Augmentin] Allergy Unknown Hives Verified 01/10/24 08:11 clavulanic acid [Augmentin] Allergy Unknown Itchy Eyes Verified 01/10/24 08:11 tamsulosin Allergy Blister Verified 01/10/24 08:11 Home Medications ?Medication ?Instructions ?Recorded ?Confirmed ?Last Taken ?Type apixaban 5 mg tablet (Eliquis) 5 mg PO BID 04/20/23 12/28/23 Unknown History diltiazem HCl 180 mg 180 mg PO DAILY 04/20/23 12/28/23 Unknown History capsule,extended release 24 hr folic acid 1 mg tablet 1 mg PO DAILY 04/20/23 12/28/23 Unknown History pantoprazole 40 mg tablet,delayed 40 mg PO BID 04/20/23 12/28/23 Unknown History release valsartan 40 mg tablet mg PO 04/20/23 12/28/23 Unknown History Vitamin B-1 DAILY 01/10/24 Unknown History Vitamin B-6 DAILY 01/10/24 Unknown History Exam Pertinent Lab Results Pertinent Lab Results: Laboratory Tests 11/29/23 08:37 WBC 5.0 Hgb 14.8 Hct 43.3 Plt Count 237 Sodium 138 Potassium 4.7 Chloride 104 Carbon Dioxide 30 H BUN 17 H Creatinine 0.86 Narrative Narrative: ECHO 2022 Conclusions: - The left ventricular systolic function is normal. Visually estimated LVEF 50-60%. - Patient likely in atrial fibrillation with rapid rate during procedure, based on EKG tracings. Assessment and Plan Assessment Anesthesia Assessment: Chart Reviewed
[2024-01-10 08:13] VITALS: BMI 27.7
[2024-01-10 08:19] VITALS: BP 148/76; PULSE 68; RESP 16; TEMP 36.4; O2SAT 99
[2024-01-10] MEDS: Lactated Ringers 1,000 ML 50 ML IVCONT (08:28)
--- NOTE | 2024-01-10 08:31 | MHC.SHP ---
Pre-Procedural Eval Section A - 24 Hr Update-Section A only Date of Service: 01/10/24 The patient is an INPATIENT: No Changes since office visit: Yes Changes in Medication and Yes Patient answered all questions; No Cold of Flu in the past 2 weeks and No New Medical Problems The patient has been examined within 24 hours of the surgical procedure. The History & Physical has been completed within 30 days and I have reviewed it.: Yes Section B - Complete if H&P > 30 days Chief Complaint: Unspecified atrial flutter Allergies: Allergies Allergy/AdvReac Type Severity Reaction Status Date / Time amoxicillin [Augmentin] Allergy Unknown Hives Verified 01/10/24 08:11 clavulanic acid [Augmentin] Allergy Unknown Itchy Eyes Verified 01/10/24 08:11 tamsulosin Allergy Blister Verified 01/10/24 08:11 Plan I have reviewed the history and physical and performed a pertinent physical examination on my patient. No changes have occurred unless specified. Time Spent With Patient Time: Total time managing care of this patient today ____ minutes.
--- NOTE | 2024-01-10 08:40 | P.CONAN_ITS ---
[facility]LY [facility] Active Problems Active Problems: All Active Problems Atrial flutter (Acute) Sleep apnea (Acute) Abnormal EKG (Acute) Paroxysmal atrial flutter (Acute) Cardiomyopathy (Acute) Past Medical History Medical History (Updated 01/10/24 @ 08:10 by Kristie Galaviz RN) History of cardioversion GERD (gastroesophageal reflux disease) Cardiomyopathy Paroxysmal atrial flutter Functional capacity: independent ambulation Family History Family history of problems with anesthesia: No Surgical History Surgical History Hx of prior ablation treatment Hx of inguinal hernia repair History of Problems with Anesthesia: No Social History Social History Alcohol intake: former Patient Tobacco Use Status: Former Tobacco user Quit Date: Use of substances other than those prescribed or required for medical reasons: Yes Substance Use Type: Marijuana Are you DNR?: No Advance Directives: No Advance Directives Information Provided: Yes Meds Allergies Allergy/AdvReac Type Severity Reaction Status Date / Time amoxicillin [Augmentin] Allergy Unknown Hives Verified 01/10/24 08:11 clavulanic acid [Augmentin] Allergy Unknown Itchy Eyes Verified 01/10/24 08:11 tamsulosin Allergy Blister Verified 01/10/24 08:11 Active Medications: Current Medications Lactated Ringer's (Lr) 1,000 mls @ 50 mls/hr IVCONT .Q20H LYUBOV Last Admin: 01/10/24 08:28 Dose: 50 mls/hr Home Medications ?Medication ?Instructions ?Recorded ?Confirmed ?Last Taken ?Type apixaban 5 mg tablet (Eliquis) 5 mg PO BID 04/20/23 12/28/23 Unknown History diltiazem HCl 180 mg 180 mg PO DAILY 04/20/23 12/28/23 Unknown History capsule,extended release 24 hr folic acid 1 mg tablet 1 mg PO DAILY 04/20/23 12/28/23 Unknown History pantoprazole 40 mg tablet,delayed 40 mg PO BID 04/20/23 12/28/23 Unknown History release valsartan 40 mg tablet mg PO 04/20/23 12/28/23 Unknown History Vitamin B-1 DAILY 01/10/24 Unknown History Vitamin B-6 DAILY 01/10/24 Unknown History Exam Height,Weight and Vital Signs: Height 5 ft 10 in Weight 87.543 kg Last Vital Signs Temp 97.5 F 01/10/24 08:19 Pulse 68 01/10/24 08:19 Resp 16 01/10/24 08:19 BP 148/76 H 01/10/24 08:19 Pulse Ox 99 01/10/24 08:19 O2 Del Method Room Air 01/10/24 08:19 Airway Mallampati Class: III TM Dist: >3cm Neck ROM: Full Heart: regular Lungs: CTA Assessment and Plan Assessment Anesthesia Assessment: Anesthesia Plan Discussed and Smoking Cess. Discussed Final Anesthetic Review Family History of Problems with Anesthesia: No History of Problems with Anesthesia: No ASA Class: III Final Preanesthetic Review: Meds/Allgs Chart Reviewed, Consent Obtained/Reviewed and Anes Risks/Benef Reviewed Patient Risk: Intermediate Procedure Risk: Low Anesthetic Plan Anesthetic Plan: GA Disposition: Standard PACU
[2024-01-10 09:22] VITALS: BP 101/32; PULSE 83; RESP 16; TEMP 37.1; O2SAT 99
[2024-01-10 09:27] VITALS: BP 105/65; PULSE 102; RESP 16; O2SAT 99
--- NOTE | 2024-01-10 09:27 | HO.POSTANES ---
Post Anesthesia Evaluation Post Anesthesia Evaluation Date of Service: 01/10/24 Vital Signs: Vital Signs Temp Pulse Resp BP Pulse Ox O2 Del Method 01/10/24 08:19 97.5 F 68 16 148/76 H 99 Room Air Anesthesia: General Mental Status: Awake Pain Control: Satisfactory Nausea/Vomiting: None Hydration: Adequate Anesthesia-Related Issues: No Anes. Related Issues
--- NOTE | 2024-01-10 09:31 | ECG_ITS ---
Test Reason : s/p cardioversion Blood Pressure : / mmHG Vent. Rate : 063 BPM Atrial Rate : 063 BPM P-R Int : 210 ms QRS Dur : 086 ms QT Int : 394 ms P-R-T Axes : 033 022 064 degrees QTc Int : 403 ms Sinus rhythm with 1st degree A-V block with Premature atrial complexes Otherwise normal ECG When compared with ECG of 09-NOV-2022 10:27, Premature atrial complexes are now Present Vent. rate has decreased BY 34 BPM Referred By: Naun Smith Electronically Signed By:NAUN SMITH MD
[2024-01-10 09:32] VITALS: BP 110/69; PULSE 68; RESP 16; O2SAT 98
--- NOTE | 2024-01-10 09:32 | P.PNCAR_ITS ---
Cardioversion Procedure Note Cardioversion Date of Procedure: Today Ordering Provider: Toshia Lopes Performing Provider: Naun Smith Indication for Procedure: Persistent atrial flutter with difficult control rate Pre-Op Diagnosis: Same Post-Op Diagnosis: Normal sinus rhythm Performed with Transesophageal Echo: No History: See the office note Consent: Verbal and Written consent was obtained from the patient before starting the procedure after confirming oral anticoagulation as well as Multaq use. The patient was made aware of the risk of synchronized cardioversion including benefits and alternatives Procedure: After consent obtained, cardioversion pads were attached in anteroposterior co nfiguration and the patient was sedated by the anesthesia team. Once adequate sedation achieved, patient was delivered 200 joules of biphasic synchronized energy in anteroposterior configuration Complications: None Impression: Converted to sinus rhythm with PACs Recommendations: 1. 12 lead EKG 2. Continue full oral anticoagulation as well as Multaq 3. Follow up in the clinic after Holter monitor
[2024-01-10 09:37] VITALS: BP 110/87; PULSE 72; RESP 18; O2SAT 98
[2024-01-10 09:51] VITALS: BP 116/65; PULSE 65; RESP 18; TEMP 36.7; O2SAT 98
== END 2024-01-10 10:04 | disposition home or self-care (01) ==
PROVIDERS: PCP Internal Medicine; Visit Provider Internal Medicine Cardiovascular Disease
PROC: 5A2204Z Restoration of Cardiac Rhythm, Single (ICD-10-PCS; principal; 2024-01-10 09:00)
DX: I48.92 Unspecified atrial flutter (principal); I42.9 Cardiomyopathy, unspecified; Z79.01 Long term (current) use of anticoagulants; G47.30 Sleep apnea, unspecified; Z88.1 Allergy status to other antibiotic agents; Z88.8 Allergy status to other drugs, medicaments and biological substances; Z87.891 Personal history of nicotine dependence
CPT/HCPCS: 92960; 93005; J2704

== ENCOUNTER → 2024-01-10 07:31 | Outpatient (BNV) | payer MEDICARE, SELFPAY | PROVIDERS: PCP Internal Medicine; Visit Provider Internal Medicine Cardiovascular Disease | DX: I48.11 Longstanding persistent atrial fibrillation (principal) | CPT/HCPCS: 92960; 93010 ==

== ENCOUNTER 2024-01-30 07:37 | Outpatient (REF) | payer MEDICARE, SELFPAY ==
[2024-01-30 13:20] LABS: MANUAL DIFF FLAG NO
[2024-01-30 13:23] LABS: Basophils Percent Auto 0.7 % (0-2); Eosinophils Absolute Auto 0.1 X10*3/uL (0.0-0.4); Eosinophils Percent Auto 1.5 % (0-4); Hematocrit 42.8 % (42.0-52.0); Hemoglobin 14.4 g/dl (14.0-18.0); Imm Gran Abs Auto 0.02 X10*3/uL (0.00-0.03); Imm Gran Pct Auto 0.4 % (0.0-0.4); Lymphocytes Absolute Auto 1.6 X10*3/uL (1.2-4.9); Lymphocytes Percent Auto 29.1 % (20-40); Mean Corpuscular HGB Conc 33.6 g/dl (31.0-36.0); Mean Corpuscular Hemoglobin 31.9 pg (27.0-33.0); Mean Corpuscular Volume 94.7 fL (80.0-98.0); Mean Platelet Volume 10.3 fL (9.4-12.4); Monocytes Absolute Auto 0.6 X10*3/uL (0.1-1.2); Neutrophils Absolute Auto 3.1 x10*3/uL (2.0-8.3); Neutrophils Percent Auto 57.3 % (45-73); Platelet Count 216 X10*3/uL (160-400); Red Blood Count 4.52 X10*6/uL (4.60-5.80); Red Cell Distribution Width 12.4 % (11.0-16.0); White Blood Count 5.4 X10*3/uL (4.8-10.8)
[2024-01-30 13:41] LABS: Estimated Average Glucose 108 mg/dL; Hemoglobin A1c % 5.4 % (<6.0)
[2024-01-30 13:52] LABS: Alanine Aminotransferase 19 U/L (0-40); Albumin Level 4.2 g/dL (3.5-5.0); Alkaline Phosphatase 59 U/L (39-117); Anion Gap 14 (12-20); Aspartate Amino Transferase 20 U/L (5-37); Bilirubin Total 0.5 mg/dL (0.0-1.0); Blood Urea Nitrogen 17 mg/dL (9-16); Calcium 10.7 mg/dL (8.4-10.2); Carbon Dioxide 26 mmol/L (22-29); Chloride 105 mmol/L (96-108); Cholesterol 220 mg/dL (<200); Estimated Glomerular Filt Rate > 60; Glucose Random 94 mg/dL (60-115); HDL Cholesterol 73 mg/dL (>40); LDL Cholesterol Calculated 134 mg/dL (<100); Potassium 4.5 mmol/L (3.3-5.1); Sodium 140 mmol/L (135-145); Total Protein 7.2 g/dL (6.5-8.0); Triglycerides 66 mg/dL (<150)
== END 2024-01-30 07:38 | disposition home or self-care (01) ==
LOC: HO.MANLDS 07:37
PROVIDERS: Visit Provider Physician Assistant
DX: R73.01 Impaired fasting glucose (principal)
CPT/HCPCS: 36415; 80053; 80061; 83036; 85025

== ENCOUNTER 2024-02-01 08:40 | Outpatient (AMB) | payer MEDICARE, SELFPAY ==
[2024-02-01 08:43] VITALS: BP 100/62; PULSE 68; BMI 28.6
--- NOTE | 2024-02-01 08:43 | A.OFFVIS_ITS ---
Vital Signs 02/01/24 08:43 Height 5 ft 10 in Weight 199 lb 4.766 oz BMI 28.6 BP 100/62 Blood Pressure Location Lt brachial Position Sitting Pulse 68 Pulse Source Monitor Intake Visit Reasons: Medication Intolerance Restoration Ecologist Required: No Allergies amoxicillin [Augmentin] Allergy (Unknown, Verified 02/01/24 08:44) Hives clavulanic acid [Augmentin] Allergy (Unknown, Verified 02/01/24 08:44) Itchy Eyes tamsulosin Allergy (Verified 02/01/24 08:44) Blister Medication List - Last Reconciled 02/01/24 by CRUZ MelchorC apixaban (Eliquis) 5 mg PO BID diltiazem HCl CD 180 mg PO DAILY dronedarone (Multaq) 400 mg PO ONCE folic acid 1 mg PO DAILY pantoprazole 40 mg PO BID valsartan mg PO [Vitamin B-1 DAILY] [Vitamin B-6 DAILY] HPI HPI Medication Intolerance: Details: Farhat is a 73-year-old male with newer finding of symptomatic atrial fibrillation at [facility] with cardiomyopathy, EF 35-40% requiring DANIKA cardioversion at that time. He initially was put on amiodarone which was then stopped due to thyroid issues. He did have follow-up echocardiogram showing normalization of EF and EKG tracing at time of echo showed AFib. A Holter monitor confirmed atrial flutter, average rate 98. He was put on Multaq and diltiazem. He underwent a repeat cardioversion and today presents for follow-up. Today he reports that he has been feeling better since the cardioversion. He has not had any heart palpitations. He has no lightheadedness, presyncope, syncope, falls. No chest discomfort at rest or with activity. He does describe some epigastric discomfort when he is bending or sitting on his couch which is not new.. Describes having a hiatal hernia and believes it is symptomatic. No shortness of breath, PND, orthopnea or edema. Rare alcohol use. Taking his meds as directed. No bleeding issues reported. [facility] Medical History History of cardioversion GERD (gastroesophageal reflux disease) Cardiomyopathy Paroxysmal atrial flutter Surgical History Hx of prior ablation treatment Hx of inguinal hernia repair Social History Alcohol intake: former Patient Tobacco Use Status: Former Tobacco user Quit Date: Substance Use Type: Marijuana Review of Systems Const All systems reviewed & are unremarkable except as noted in HPI and below ENT Denies dizziness Card Denies chest pain, Denies chest pain at rest, Denies chest pain with activity, Denies rapid heart rate, Denies pedal edema, Denies edema, Denies leg edema, Denies lightheadedness, Denies palpitations, Denies dyspnea, Denies dyspnea on exertion and Denies orthopnea Resp Denies cough, Denies dyspnea and Denies dyspnea on exertion GI Denies hematochezia and Denies change in stool character Musc Denies abnormal gait, Denies limited range of motion, Denies muscle cramps, Denies muscle weakness, Denies numbness, Denies radiating pain into limb, Denies stiffness and Denies tingling Neuro Denies abnormal gait, Denies dizziness, Denies numbness and Denies tingling Endo Denies palpitations Physical Exam Vital Signs: Last Vital Signs Pulse 68 02/01/24 08:43 BP 100/62 02/01/24 08:43 BMI result Body Mass Index 28.6 Const General: cooperative, healthy appearing, comfortable and no acute distress Orientation/consciousness: patient oriented x3 Neck Neck: Yes normal visual inspection and Yes no JVD Resp Effort & Inspection: normal respiratory effort Auscultation: clear to auscultation bilaterally, no crackles, no rales, no rhonchi and no wheezes Cardio Jugular venous distension: no JVD Rate: regular rate Rhythm: regular rhythm Heart sounds: S1 normal heart sound present, S2 normal heart sound present, no gallops, no murmurs and no rubs Neuro General: patient oriented x3 Extrem General: Yes normal to inspection, No no pedal edema and No calf tenderness Psych Appearance: grossly normal Mental Status: mental status grossly normal Speech and movement: Normal speech and movement present Office Procedures EKG Details: Today, read by me, sinus rhythm with PACs, rate 68, QTC 395 millisecond [id number], Complete Assessment & Plan Assessment & Plan (1) Paroxysmal atrial flutter: Comment: New finding 01/2023 Code(s): I48.92 - Unspecified atrial flutter Category: Medical Plan: New finding of paroxysmal atrial flutter 01/2023 when he presented to [facility] for symptoms dizziness, presyncope. Initial echo there showed LV dysfunction with EF 35-40%. He did undergo a DANIKA cardioversion which does state EF normal at that time. He had been on metoprolol and amiodarone for rate and rhythm control. Notes indicate that amiodarone was stopped due to thyroid dysfunction. He was then put on diltiazem for heart rate control. He underwent a stress test on 05/08/2023 with exercise 7 minutes 20 seconds, mild shortness of breath, no EKG changes of ischemia and normal myocardial perfusion imaging. His echocardiogram was done 05/16/2023 showing EF 55-60% he was noted to be in AFib RVR at that time. An outpatient Holter monitor was done on 05/16/2023 for nearly 3 days showing sinus rhythm with average heart rate 67, PAF 6.8% of time, SVE, frequent, 7.2% of time. Metoprolol was added to his diltiazem. Repeat Holter monitor done on 12/20/2023 for 2.5 days shows atrial flutter with average heart rate 98 per, 37% of time heart rate over 100, occasional PVC. He was started on Multaq, metoprolol stopped, diltiazem continued. He underwent a repeat cardioversion on 01/10/2024 with successful conversion back to sinus rhythm. Today he reports feeling well with no concerning symptoms. He is taking Multaq only once daily. He believes it may have given him a rash however the rash is resolving and he is still on the medication. Informed him that Multaq is a twice daily medication and he should be taking it as directed. EKG done today showing sinus rhythm with PACs, rate 68, QTC 395 milliseconds. He tells me the cost of Multaq is more than he can afford, 100 dollars monthly. Will check with his primary electrical linesworker regarding alternate therapies. Sleep study previously ordered on him and he does not want to complete. He has already reduced his alcohol intake. Continue Eliquis for anticoagulation. Continue Multaq and diltiazem. Cardiology office visit for reassessment in 4 months, sooner if needed. (2) Cardiomyopathy: Comment: EF 35-40% on [facility] echo 01/20/2023 Code(s): I42.9 - Cardiomyopathy, unspecified Category: Medical Plan: EF down initially when AF RVR found. EF has since normalized. Will continue to pursue rhythm control with Multaq. No signs of decompensated heart failure on exam. Continue valsartan. (3) Sleep apnea: Code(s): G47.30 - Sleep apnea, unspecified Category: Medical Plan: Reported history. He declines sleep study Plan Time spent on chart review, documentation, interview and assessment Medications: Changed From dronedarone (Multaq) must administer with a meal/food 400 mg PO BID 60 tabs 5RF To dronedarone (Multaq) must administer with a meal/food 400 mg PO ONCE Coding Level of Care Code Est Pt Level 4 (54431) Diagnoses Paroxysmal atrial flutter I48.92 Cardiomyopathy I42.9 Sleep apnea G47.30 CPT Codes EKG - CPT: 57379-[id number], Complete ([id number]) Time Spent (min) 30
== END 2024-02-01 09:15 | disposition home or self-care (01) ==
PROVIDERS: PCP Internal Medicine; Visit Provider Nurse Practitioner Family
DX: I48.92 Unspecified atrial flutter (principal); I42.9 Cardiomyopathy, unspecified; G47.30 Sleep apnea, unspecified
CPT/HCPCS: 93010; 99214

== ENCOUNTER → 2024-02-01 08:40 | Outpatient (BNVA) | payer MEDICARE, SELFPAY | PROVIDERS: PCP Internal Medicine; Visit Provider Nurse Practitioner Family | DX: I48.92 Unspecified atrial flutter (principal); I42.9 Cardiomyopathy, unspecified; G47.30 Sleep apnea, unspecified | CPT/HCPCS: 93005; 99212 ==

== ENCOUNTER 2024-02-21 10:09 | Outpatient (AMB) | payer MEDICARE, SELFPAY ==
--- NOTE | 2024-02-21 10:14 | AM.OFFVISNUR ---
Intake Intake Visit Reasons: Ekg new on Flecainide Allergies amoxicillin [Augmentin] Allergy (Unknown, Verified 02/01/24 08:44) Hives clavulanic acid [Augmentin] Allergy (Unknown, Verified 02/01/24 08:44) Itchy Eyes tamsulosin Allergy (Verified 02/01/24 08:44) Blister Nursing Note PT is on Flecainide 100 mg EKG was preformed and left on providers desk for review Office Procedures EKG [id number], Complete Coding CPT Codes EKG - CPT: 92943-[id number], Complete ([id number])
== END 2024-02-21 10:46 | disposition home or self-care (01) ==
PROVIDERS: PCP Internal Medicine; Visit Provider Nurse Practitioner Family
DX: I48.92 Unspecified atrial flutter (principal); I44.2 Atrioventricular block, complete
CPT/HCPCS: 93010

== ENCOUNTER → 2024-02-21 10:09 | Outpatient (BNVA) | payer MEDICARE, SELFPAY | PROVIDERS: PCP Internal Medicine; Visit Provider Nurse Practitioner Family | DX: I48.92 Unspecified atrial flutter (principal); Z79.899 Other long term (current) drug therapy; I44.39 Other atrioventricular block; R94.31 Abnormal electrocardiogram [ECG] [EKG] | CPT/HCPCS: 93005 ==

== ENCOUNTER 2024-05-07 09:36 | Outpatient (AMB) | payer MEDICARE, SELFPAY ==
[2024-05-07 09:37] VITALS: BP 120/72; PULSE 68; BMI 27.3
--- NOTE | 2024-05-07 09:37 | A.OFFVIS_ITS ---
Vital Signs 05/07/24 09:37 Height 5 ft 10 in Weight 190 lb 0.615 oz BMI 27.3 BP 120/72 Blood Pressure Location Lt brachial Position Sitting Pulse 68 Pulse Source Monitor Intake Visit Reasons: 3m follow up Account Collector Required: No Allergies amoxicillin [Augmentin] Allergy (Unknown, Verified 05/07/24 09:39) Hives clavulanic acid [Augmentin] Allergy (Unknown, Verified 05/07/24 09:39) Itchy Eyes tamsulosin Allergy (Verified 05/07/24 09:39) Blister Medication List - Last Reconciled 05/07/24 by YOSHI Melchor apixaban (Eliquis) 5 mg PO BID diltiazem HCl CD 180 mg PO DAILY dronedarone (Multaq) 400 mg PO BID 30 days folic acid 1 mg PO DAILY pantoprazole 40 mg PO BID valsartan mg PO [Vitamin B-1 DAILY] [Vitamin B-6 DAILY] HPI HPI 3m follow up: Details: Farhat is a 73-year-old male with past medical history of prior alcohol abuse, symptomatic atrial fibrillation, cardiomyopathy, EF 35-40% -likely rate related, with normalization of EF following rate and rhythm control. He initially was put on amiodarone which was then stopped due to thyroid issues. He did have follow-up recurrent atrial flutter and was put on Multaq and underwent cardioversion last December. More recently he says he stopped his valsartan and Multaq but has since resumed them. He now presents for follow-up. Today he reports that he had been feeling well which is why he stopped his medications. [place] since he stopped drinking that he did not need all the medications he was on. He tells me he has not missed any doses of his Eliquis. He has been taking it faithfully without any interruption. He was briefly on flecainide due to the Multaq cost but has since gone back on to Multaq. He did not take it for a few weeks and did come to our office on 04/26/2024 for an EKG which showed atrial flutter. His EKG again today is showing atrial flutter. He is not noticing any heart palpitations at this time. He has no chest discomfort at rest or with activity. No lightheadedness, presyncope, syncope, falls. No shortness of breath, PND, orthopnea or edema. Denies any recent alcohol use. He is asking about ablation. No bleeding issues reported [facility] Medical History History of cardioversion GERD (gastroesophageal reflux disease) Cardiomyopathy Paroxysmal atrial flutter Surgical History Hx of prior ablation treatment Hx of inguinal hernia repair Social History Alcohol intake: former Patient Tobacco Use Status: Former Tobacco user Substance Use Type: Marijuana Review of Systems Const All systems reviewed & are unremarkable except as noted in HPI and below ENT Denies dizziness Card Denies chest pain, Denies chest pain at rest, Denies chest pain with activity, Denies rapid heart rate, Denies pedal edema, Denies edema, Denies leg edema, Denies lightheadedness, Denies palpitations, Denies dyspnea, Denies dyspnea on exertion and Denies orthopnea Resp Denies cough, Denies dyspnea and Denies dyspnea on exertion GI Denies hematochezia and Denies change in stool character Musc Denies abnormal gait, Denies limited range of motion, Denies muscle cramps, Denies muscle weakness, Denies numbness, Denies radiating pain into limb, Denies stiffness and Denies tingling Neuro Denies abnormal gait, Denies dizziness, Denies numbness and Denies tingling Endo Denies palpitations Physical Exam Vital Signs: Last Vital Signs Pulse 68 05/07/24 09:37 BP 120/72 05/07/24 09:37 BMI result Body Mass Index 27.3 Const General: cooperative, healthy appearing, comfortable and no acute distress Orientation/consciousness: patient oriented x3 Neck Neck: Yes normal visual inspection and Yes no JVD Resp Effort & Inspection: normal respiratory effort Auscultation: clear to auscultation bilaterally, no crackles, no rales, no rhonchi and no wheezes Cardio Jugular venous distension: no JVD Rate: regular rate Rhythm: regular rhythm Heart sounds: S1 normal heart sound present, S2 normal heart sound present, no gallops, no murmurs and no rubs Neuro General: patient oriented x3 Extrem General: Yes normal to inspection, No no pedal edema and No calf tenderness Psych Appearance: grossly normal Mental Status: mental status grossly normal Speech and movement: Normal speech and movement present Office Procedures EKG Details: Today, read by me, atrial flutter, 4-1 AV conduction, QTC 410 milliseconds, rate 68 [id number], Complete Assessment & Plan Assessment & Plan (1) Paroxysmal atrial flutter: Comment: New finding 01/2023 Code(s): I48.92 - Unspecified atrial flutter Category: Medical Plan: New finding of paroxysmal atrial flutter 01/2023 when he presented to [facility] for symptoms dizziness, presyncope. Initial echo there showed LV dysfunction with EF 35-40%. He did undergo a DANIKA cardioversion which does state EF normal at that time. He had been on metoprolol and amiodarone for rate and rhythm control. Notes indicate that amiodarone was stopped due to thyroid dysfunction. He was then put on diltiazem for heart rate control. He underwent a stress test on 05/08/2023 with exercise 7 minutes 20 seconds, mild shortness of breath, no EKG changes of ischemia and normal myocardial perfusion imaging. His echocardiogram was done 05/16/2023 showing EF 55-60% he was noted to be in AFib RVR at that time. An outpatient Holter monitor was done on 05/16/2023 for nearly 3 days showing sinus rhythm with average heart rate 67, PAF 6.8% of time, SVE, frequent, 7.2% of time. Metoprolol was added to his diltiazem. Repeat Holter monitor done on 12/20/2023 for 2.5 days shows atrial flutter with average heart rate 98 per, 37% of time heart rate over 100, occasional PVC. He was started on Multaq, metoprolol stopped, diltiazem continued. He underwent a repeat cardioversion on 01/10/2024 with successful conversion back to sinus rhythm. On last visit he stated the Multaq was too expensive and he was changed over to flecainide which he took for 1 month. He then preferred going back to Multaq but he did go a few weeks without any antiarrhythmic. Today he reports feeling well with no concerning symptoms. EKG today confirms atrial flutter, 4-1 AV conduction, rate 68. At this time he tells me he is taking Multaq and diltiazem as directed. Confirms that he has not missed any doses of Eliquis for over 1 month. Due to recurrent atrial flutter will plan for cardioversion with Dr. Smith in the next week. Procedure reviewed with him in detail and he is agreeable to proceed. Once rhythm is restored we can evaluate for possible ablation. He is requesting that ablation be done. Sleep study previously ordered on him and he does not want to complete. He reports stopping all alcohol intake. Holter monitor 2 weeks post cardioversion and follow-up 1 month. (2) Cardiomyopathy: Comment: EF 35-40% on [facility] echo 01/20/2023 Code(s): I42.9 - Cardiomyopathy, unspecified Category: Medical Plan: EF down initially when AF RVR found. EF has since normalized. Will continue to pursue rhythm control with Multaq and repeat cardioversion. No signs of decompensated heart failure on exam. Continue valsartan. (3) Sleep apnea: Code(s): G47.30 - Sleep apnea, unspecified Category: Medical Plan: Reported history. He declines sleep study (4) Atrial flutter: Code(s): I48.92 - Unspecified atrial flutter Category: Medical Plan: Noted on EKG today Plan Time spent on chart review, documentation, interview and assessment Orders: Orders Comprehensive Met. Panel Today I48.92 - Unspecified atrial flutter Cardioversion Today I48.92 - Unspecified atrial flutter Coding Level of Care Code Est Pt Level 4 (87729) Diagnoses Paroxysmal atrial flutter I48.92 Cardiomyopathy I42.9 Sleep apnea G47.30 Atrial flutter I48.92 CPT Codes EKG - CPT: 84765-[id number], Complete ([id number]) Time Spent (min) 30
== END 2024-05-07 10:20 | disposition home or self-care (01) ==
PROVIDERS: PCP Internal Medicine; Visit Provider Nurse Practitioner Family
DX: I48.92 Unspecified atrial flutter (principal); I42.9 Cardiomyopathy, unspecified; G47.30 Sleep apnea, unspecified
CPT/HCPCS: 93010; 99214

== ENCOUNTER 2024-05-07 09:36 | Outpatient (REF) | payer MEDICARE, SELFPAY ==
[2024-05-07 12:21] LABS: Alanine Aminotransferase 19 U/L (0-40); Albumin Level 4.1 g/dL (3.5-5.0); Alkaline Phosphatase 61 U/L (39-117); Anion Gap 10 (12-20); Aspartate Amino Transferase 18 U/L (5-37); Bilirubin Total 0.6 mg/dL (0.0-1.0); Blood Urea Nitrogen 15 mg/dL (9-16); Carbon Dioxide 28 mmol/L (22-29); Chloride 106 mmol/L (96-108); Estimated Glomerular Filt Rate > 60; Glucose Random 89 mg/dL (60-115); Potassium 4.5 mmol/L (3.3-5.1); Sodium 139 mmol/L (135-145)
== END 2024-05-07 09:37 | disposition home or self-care (01) ==
LOC: HO.LAB 09:36
PROVIDERS: PCP Internal Medicine; Visit Provider Nurse Practitioner Family
DX: I48.92 Unspecified atrial flutter (principal); I42.9 Cardiomyopathy, unspecified; G47.30 Sleep apnea, unspecified
CPT/HCPCS: 36415; 80053; 93005; 99212

== ENCOUNTER 2024-05-15 11:12 | Day surgery (SDC) | payer MEDICARE, SELFPAY ==
[2024-05-13 14:18] VITALS: BMI 27.3
--- NOTE | 2024-05-14 09:32 | HO.ANESPROP2 ---
Documented by User: Katarina Centeno NP 05/14/24 09:35 HPI - Anesthesia Eval Consult details Narrative: 73yo M for Cardioversion Eliquis for afib PMFSH Active Problems Active Problems: All Active Problems Atrial flutter (Acute) Sleep apnea (Acute) Abnormal EKG (Acute) Paroxysmal atrial flutter (Acute) Cardiomyopathy (Acute) Past Medical History Medical History History of cardioversion GERD (gastroesophageal reflux disease) Cardiomyopathy Paroxysmal atrial flutter Family History Family history of problems with anesthesia: No Surgical History Surgical History Hx of prior ablation treatment Hx of inguinal hernia repair History of Problems with Anesthesia: No Social History Social History Alcohol intake: former Patient Tobacco Use Status: Former Tobacco user Use of substances other than those prescribed or required for medical reasons: Yes Substance Use Type: Marijuana Are you DNR?: No Advance Directives: No Advance Directives Information Provided: Yes Recently lost weight without trying: No Meds Allergies Allergy/AdvReac Type Severity Reaction Status Date / Time amoxicillin [Augmentin] Allergy Unknown Hives Verified 05/07/24 09:39 clavulanic acid [Augmentin] Allergy Unknown Itchy Eyes Verified 05/07/24 09:39 tamsulosin Allergy Blister Verified 05/15/24 11:36 amiodarone AdvReac Unknown Unknown Verified 05/15/24 11:37 Home Medications ?Medication ?Instructions ?Recorded ?Confirmed ?Last Taken ?Type apixaban 5 mg tablet (Eliquis) 5 mg PO BID 04/20/23 05/15/24 05/15/24 08:00 History diltiazem HCl 180 mg 180 mg PO DAILY 04/20/23 05/15/24 05/15/24 08:00 History capsule,extended release 24 hr folic acid 1 mg tablet 1 mg PO DAILY 04/20/23 05/15/24 05/15/24 08:00 History valsartan 40 mg tablet mg PO 04/20/23 05/07/24 05/15/24 08:00 History Vitamin B-1 DAILY 01/10/24 05/07/24 05/15/24 08:00 History Vitamin B-6 DAILY 01/10/24 05/07/24 05/15/24 08:00 History Exam Height,Weight and Vital Signs: Height 5 ft 10 in Weight 86.183 kg Pertinent Lab Results Pertinent Lab Results: Laboratory Tests 01/30/24 05/07/24 07:42 10:40 WBC 5.4 Hgb 14.4 Hct 42.8 Plt Count 216 Sodium 139 Potassium 4.5 Chloride 106 Carbon Dioxide 28 BUN 15 Creatinine 1.05 Narrative Narrative: EKG 04/2024 atrial flutter, 4-1 AV conduction, QTC 410 milliseconds, rate 68 ECHO 2022 Conclusions: - The left ventricular systolic function is normal. Visually estimated LVEF 50-60%. - Patient likely in atrial fibrillation with rapid rate during procedure, based on EKG tracings. Assessment and Plan Assessment Anesthesia Assessment: Chart Reviewed Final Anesthetic Review Family History of Problems with Anesthesia: No History of Problems with Anesthesia: No Documented by User: Virgilio Noble MD 05/15/24 13:23 PMFSH Past Medical History Medical History History of cardioversion GERD (gastroesophageal reflux disease) Cardiomyopathy Paroxysmal atrial flutter Surgical History Surgical History Hx of prior ablation treatment Hx of inguinal hernia repair Social History Social History Alcohol intake: former Patient Tobacco Use Status: Former Tobacco user Use of substances other than those prescribed or required for medical reasons: Yes Substance Use Type: Marijuana Are you DNR?: No Advance Directives: No Advance Directives Information Provided: Yes Recently lost weight without trying: No Meds Allergies Allergy/AdvReac Type Severity Reaction Status Date / Time amoxicillin [Augmentin] Allergy Unknown Hives Verified 05/07/24 09:39 clavulanic acid [Augmentin] Allergy Unknown Itchy Eyes Verified 05/07/24 09:39 tamsulosin Allergy Blister Verified 05/15/24 11:36 amiodarone AdvReac Unknown Unknown Verified 05/15/24 11:37 Home Medications ?Medication ?Instructions ?Recorded ?Confirmed ?Last Taken ?Type apixaban 5 mg tablet (Eliquis) 5 mg PO BID 04/20/23 05/15/24 05/15/24 08:00 History diltiazem HCl 180 mg 180 mg PO DAILY 04/20/23 05/15/24 05/15/24 08:00 History capsule,extended release 24 hr folic acid 1 mg tablet 1 mg PO DAILY 04/20/23 05/15/24 05/15/24 08:00 History valsartan 40 mg tablet mg PO 04/20/23 05/07/24 05/15/24 08:00 History Vitamin B-1 DAILY 01/10/24 05/07/24 05/15/24 08:00 History Vitamin B-6 DAILY 01/10/24 05/07/24 05/15/24 08:00 History Exam Airway Mallampati Class: II TM Dist: >3cm Neck ROM: Full Loose/Missing/Broken Teeth: Yes and Upper Heart: ok. see above. aflutter on bedside monitor. Lungs: ok Assessment and Plan Assessment Anesthesia Assessment: Anesthesia Plan Discussed Final Anesthetic Review NPO: Yes ASA Class: III Final Preanesthetic Review: No Changes in Pt Med Stat, Meds/Allgs Chart Reviewed, Consent Obtained/Reviewed and Anes Risks/Benef Reviewed Patient Risk: Intermediate Procedure Risk: Low Anesthetic Plan Anesthetic Plan: Agree w/ Assess. and Plan and TIVA Disposition: Standard PACU
--- NOTE | 2024-05-15 11:52 | MHC.SHP ---
Pre-Procedural Eval Section A - 24 Hr Update-Section A only Date of Service: 05/15/24 The patient is an INPATIENT: No Changes since office visit: Yes Patient answered all questions; No Cold of Flu in the past 2 weeks, No New Medical Problems and No Changes in Medication The patient has been examined within 24 hours of the surgical procedure. The History & Physical has been completed within 30 days and I have reviewed it.: Yes Section B - Complete if H&P > 30 days Chief Complaint: Unspecified atrial flutter Allergies: Allergies Allergy/AdvReac Type Severity Reaction Status Date / Time amoxicillin [Augmentin] Allergy Unknown Hives Verified 05/07/24 09:39 clavulanic acid [Augmentin] Allergy Unknown Itchy Eyes Verified 05/07/24 09:39 tamsulosin Allergy Blister Verified 05/15/24 11:36 amiodarone AdvReac Unknown Unknown Verified 05/15/24 11:37 Plan I have reviewed the history and physical and performed a pertinent physical examination on my patient. No changes have occurred unless specified. Time Spent With Patient Time: Total time managing care of this patient today ____ minutes.
[2024-05-15 11:58] VITALS: BMI 27.0
[2024-05-15 12:07] VITALS: BP 146/73; PULSE 65; RESP 16; TEMP 37; O2SAT 95
[2024-05-15 13:35] VITALS: BP 133/64; PULSE 57; RESP 18; TEMP 37; O2SAT 96
--- NOTE | 2024-05-15 13:39 | ECG_ITS ---
Test Reason : Status post cardioversion Blood Pressure : / mmHG Vent. Rate : 057 BPM Atrial Rate : 000 BPM P-R Int : 000 ms QRS Dur : 086 ms QT Int : 426 ms P-R-T Axes : 000 023 051 degrees QTc Int : 414 ms Sinus bradycardia with sinus arrhythmia Abnormal ECG When compared with ECG of 10-JAN-2024 09:31, No significant change was found Referred By: Naun Smith Electronically Signed By:GREY CELESTIN
[2024-05-15 13:40] VITALS: BP 119/60; PULSE 63; RESP 16; O2SAT 95
--- NOTE | 2024-05-15 13:40 | HO.CARDIVERS ---
Cardioversion Procedure Note Cardioversion Date of Procedure: 05/15/2024 Ordering Provider: Toshia Lopes Performing Provider: Alli Smith Indication for Procedure: Recurrent and persistent atrial flutter Pre-Op Diagnosis: Same Post-Op Diagnosis: Sinus rhythm Performed with Transesophageal Echo: No History: See the office note Consent: Verbal and Written consent was obtained from the patient before starting and after confirming oral anticoagulation use. The patient was made aware of the risk of synchronized cardioversion including benefits and alternatives Procedure: After consent obtained, cardioversion pads were attached in anteroposterior configuration and the patient was sedated by the anesthesia team. Once adequate sedation achieved, patient was delivered 200 joules of biphasic synchronized energy in anteroposterior configuration Complications: None Impression: Successful conversion to sinus rhythm Recommendations: 1. 12 lead EKG 2. Continue oral antiarrhythmic drug therapy and anticoagulation 3. Follow up in the office
[2024-05-15 13:45] VITALS: BP 129/70; PULSE 59; RESP 20; O2SAT 98
[2024-05-15 13:50] VITALS: BP 144/89; PULSE 57; RESP 20; O2SAT 100
[2024-05-15 14:05] VITALS: BP 140/84; PULSE 59; RESP 20; TEMP 36.6; O2SAT 98
== END 2024-05-15 14:20 | disposition home or self-care (01) ==
PROVIDERS: PCP Internal Medicine; Visit Provider Internal Medicine Cardiovascular Disease
PROC: 5A2204Z Restoration of Cardiac Rhythm, Single (ICD-10-PCS; principal; 2024-05-15 12:30)
DX: I48.92 Unspecified atrial flutter (principal); Z79.01 Long term (current) use of anticoagulants; I42.9 Cardiomyopathy, unspecified; Z88.1 Allergy status to other antibiotic agents; Z88.8 Allergy status to other drugs, medicaments and biological substances; Z87.891 Personal history of nicotine dependence
CPT/HCPCS: 92960; 93005; J2704

== ENCOUNTER → 2024-05-15 11:12 | Outpatient (BNV) | payer MEDICARE, SELFPAY | PROVIDERS: PCP Internal Medicine; Visit Provider Internal Medicine Cardiovascular Disease | DX: I48.4 Atypical atrial flutter (principal) | CPT/HCPCS: 92960 ==

== ENCOUNTER → 2024-05-29 10:02 | Outpatient (REF) | payer MEDICARE, SELFPAY ==
--- NOTE | 2024-05-29 10:04 | HM_ITS ---
* Total monitoring time 3 days. * Underlying rhythm is atrial fibrillation. Average ventricular rate 74/Min. * Rare ventricular ectopy. * No significant pauses or high-grade AV blocks. * No patient markers or diary events. MTDD
== END ==
LOC: HO.CARD 10:02
PROVIDERS: PCP Internal Medicine; Visit Provider Nurse Practitioner Family
DX: I48.92 Unspecified atrial flutter (principal)
CPT/HCPCS: 93242

== ENCOUNTER → 2024-05-29 10:04 | Outpatient (BNV) | payer MEDICARE, SELFPAY | PROVIDERS: PCP Internal Medicine; Visit Provider Internal Medicine | DX: I48.91 Unspecified atrial fibrillation (principal) | CPT/HCPCS: 93244 ==

== ENCOUNTER 2024-06-13 13:06 | Outpatient (AMB) | payer MEDICARE, SELFPAY ==
[2024-06-13 13:08] VITALS: BP 110/70; PULSE 81; BMI 27.8
--- NOTE | 2024-06-13 13:08 | A.OFFVIS_ITS ---
Vital Signs 06/13/24 13:08 Height 5 ft 10 in Weight 194 lb 0.108 oz BMI 27.8 BP 110/70 Blood Pressure Location Lt brachial Position Sitting Pulse 81 Intake Visit Reasons: 1 mth s/p cvr/ holter Intake Note: 1 month follow-up after cvr and holter with ekg feeling ok Contracts Attorney Required: No Allergies amoxicillin [Augmentin] Allergy (Unknown, Verified 05/07/24 09:39) Hives clavulanic acid [Augmentin] Allergy (Unknown, Verified 05/07/24 09:39) Itchy Eyes tamsulosin Allergy (Verified 05/15/24 11:36) Blister amiodarone Adverse Reaction (Unknown, Verified 05/15/24 11:37) Unknown Medication List - Last Reconciled 06/13/24 by Naun Smith MD apixaban (Eliquis) 5 mg PO BID diltiazem HCl CD 180 mg PO DAILY dronedarone (Multaq) 400 mg PO BID 30 days folic acid 1 mg PO DAILY valsartan 40 mg PO [Vitamin B-1 DAILY] [Vitamin B-6 DAILY] HPI Comments Details: Farhat comes for follow-up after repeat cardioversion. Holter monitor post cardioversion did show recurrent atrial fibrillation with adequate rate control. Notices no new symptoms at this point in time. No changes exercise capacity. Denies any prolonged palpitation irregular heartbeat. No low blood pressures. No lightheadedness, syncope. No bleeding issues or neurologic events. No heart failure symptoms. [facility] Medical History History of cardioversion GERD (gastroesophageal reflux disease) Cardiomyopathy Paroxysmal atrial flutter Surgical History Hx of prior ablation treatment Hx of inguinal hernia repair Social History Alcohol intake: former Patient Tobacco Use Status: Former Tobacco user Substance Use Type: Marijuana Review of Systems Const Denies chills, Denies fatigue, Denies fever(s), Denies frequent falls, Denies weakness, Denies weight gain and Denies weight loss ENT Denies dizziness Card Denies chest pain, Denies leg edema, Denies lightheadedness, Denies palpitations, Denies dyspnea, Denies dyspnea on exertion, Denies orthopnea and Denies other (loss of consciousness) Resp Denies cough, Denies dyspnea and Denies dyspnea on exertion GI Denies hematochezia and Denies change in stool character Musc Denies abnormal gait, Denies muscle weakness, Denies numbness, Denies radiating pain into limb and Denies tingling Neuro Denies abnormal gait, Denies dizziness, Denies frequent falls, Denies numbness, Denies tingling and Denies weakness Endo Denies fatigue and Denies palpitations Physical Exam Vital Signs: Last Vital Signs Pulse 81 06/13/24 13:08 BP 110/70 06/13/24 13:08 BMI result Body Mass Index 27.8 Const General: cooperative, healthy appearing, comfortable and no acute distress Orientation/consciousness: patient oriented x3 Neck Neck: Yes normal visual inspection and Yes no JVD Resp Effort & Inspection: normal respiratory effort Auscultation: clear to auscultation bilaterally, no crackles, no rales, no rhonchi and no wheezes Cardio Jugular venous distension: no JVD Rate: regular rate Rhythm: abnormal rhythm irregularly irregular Heart sounds: S1 normal heart sound present, S2 normal heart sound present, no gallops, no murmurs and no rubs Neuro General: patient oriented x3 Extrem General: Yes normal to inspection, No no pedal edema and No calf tenderness Psych Appearance: grossly normal Mental Status: mental status grossly normal Speech and movement: Normal speech and movement present Office Procedures EKG Details: EKG shows atrial fibrillation at 81 beats per minute [id number], Complete Assessment & Plan Assessment & Plan (1) Persistent atrial fibrillation: Code(s): I48.19 - Other persistent atrial fibrillation Category: Medical Plan: Persistent and recurrent and resistant atrial fibrillation in this elderly gentleman without any obvious symptoms at this point time. Rate is adequately controlled at current point time on current therapy. Multaq has been unsuccessful in maintaining rhythm. We discussed at long about further tr eatment options. He has no symptoms of atrial fibrillation or signs of cardiac decompensation. At this point time I suggested him to pursue an echocardiogram. If he has no recurrent LV systolic dysfunction we can then pursue rate control approach. We discussed about other modes of rhythm control approach including amiodarone therapy but he was not very excited about pursuing that road given hi s amiodarone induced hypothyroidism. Can also consider ablation therapy although with persistent resistant atrial fibrillation success rate of ablation by itself is low. This was discussed with him. I have offered him a 2nd opinion consult with cardiac production control specialist. He will think about it. Continue Eliquis therapy. For now Multaq will be discontinued. Continue Cardizem therapy. Advised to call me with any new symptoms. I would consider definitely pursuing aggressive rhythm control approach if he has any signs of LV systolic dysfunction. (2) Cardiomyopathy: Comment: EF 35-40% on [facility] echo 01/20/2023 Code(s): I42.9 - Cardiomyopathy, unspecified Category: Medical Plan: Cardiomyopathy process in the setting of persistent atrial fibrillation most likely tachycardia mediated. If with adequate rate control he has evidence of cardiomyopathy process will pursue rhythm control approach as above see above. Continue valsartan therapy. Avoidance of cardiotoxic agent such as alcohol was discussed. Advised to call me with any signs or symptoms of heart failure. Will follow up in the clinic in 6 months time, sooner p.r.n.. Thank you for allowing me to partake in his care Medications: Discontinued dronedarone (Multaq) must administer with a meal/food Stop Flecanide - Restart Multaq Discontinued Reason: Doctor's Order 400 mg PO BID 30 days 60 tabs 5RF Coding Level of Care Code Est Pt Level 4 (10967) Diagnoses Persistent atrial fibrillation I48.19 Cardiomyopathy I42.9 CPT Codes EKG - CPT: 64728-[id number], Complete ([id number])
== END 2024-06-13 13:32 | disposition home or self-care (01) ==
PROVIDERS: PCP Internal Medicine; Visit Provider Internal Medicine Cardiovascular Disease
DX: I48.19 Other persistent atrial fibrillation (principal); I42.9 Cardiomyopathy, unspecified
CPT/HCPCS: 93010; 99214

== ENCOUNTER → 2024-06-13 13:06 | Outpatient (BNVA) | payer MEDICARE, SELFPAY | PROVIDERS: PCP Internal Medicine; Visit Provider Internal Medicine Cardiovascular Disease | DX: I48.19 Other persistent atrial fibrillation (principal); I42.9 Cardiomyopathy, unspecified | CPT/HCPCS: 93005; 99212 ==

== ENCOUNTER → 2024-07-09 10:07 | Outpatient (REF) | payer MEDICARE, SELFPAY ==
--- NOTE | 2024-07-09 10:10 | CA_ITS ---
Transthoracic Echocardiogram Patient (Last, First, Middle): Farhat Brock, Gender: Male Date of : 1950 Age: 74 Procedure Date: 07/09/2024 Procedure Type: Transthoracic Echocardiogram Location: OP Height: 177.8 cm Weight: 87.54 kg BSA: 2.06 m2 Heart Rate: bpm BP: 122 / 66 mmHg Qc Scientist: JAMES Referring MD: Naun Smith MD Symptoms: I48.19 - Other persistent atrial fibrillation Study Quality: Adequate ECG Rhythm: Atrial flutter Conclusions: - The left ventricular systolic function is normal. The visually estimated ejection fraction is between 55-60%. - The left atrium is moderately dilated. - There is moderate aortic valve stenosis. Findings Left Ventricle Normal left ventricular cavity size. The left ventricular systolic function is normal. The visually estimated ejection fraction is between 55-60%. There is no evidence of regional wall motion abnormalities. Diastolic function is indeterminate on the basis of available data. Severe focal hypertrophy of the basal septum. Right Ventricle Normal right ventricular cavity size and systolic function. Atria The left atrium is moderately dilated. The right atrium is mildly dilated. Aortic Valve There is moderate calcification of the aortic valve. There is moderate aortic valve stenosis. There is no aortic valve regurgitation. Dimensionless index 0.29. Stroke volume index 28ml/m2. Mitral Valve The mitral valve appears normal. There is mild mitral valve regurgitation. There is no mitral valve stenosis. Pulmonic Valve The pulmonic valve is likely normal. Tricuspid Valve There is mild tricuspid valve regurgitation. There is no evidence of pulmonary hypertension. Great Vessels The asc aorta is normal in size. Venous The inferior vena cava is normal in size and collapses greater than 50% with inspiration. Pericardium/Pleural There is no evidence of pericardial effusion. Prior Study Comparison Changes noted compared to prior study dated: 05/16/2023. see comments on aortic valve. Measurements 2D Linear Measurements IVSd: 1.00 0.6-0.9/0.6-1.0 cm LVIDd: 4.38 3.9-5.3/4.2-5.9 cm LVIDd Index: 2.13 2.4-3.2/2.2-3.1 cm/m2 LVIDs: 2.93 2.0-3.6 cm LVPWd: 1.01 0.7-1.1 cm LA Diam: 4.50 2.7-3.8/3.0-4.0 cm LAIDs Index: 2.18 1.5-2.3 cm/m2 LV Mass: 183.97 67-162/88-224 g LV Mass Index: 89.30 43-95/49-115 g/m2 LVOT Diam: 2.30 3.0+(-)1.3 cm 2D Systolic Function EF 4C: 58.40 >55% EF 2C: 49.90 >55% EF BiP: 53.80 >55% Mitral Valve MV Pk E: 0.78 MV Decel Time: 214.00 E'Lateral: 9.49 E'Medial: 10.00 E/E' Med: 7.80 E/E' Lat: 8.20 PHT: 63.00 MVA PHT: 3.49 Decel [place]: 3.73 Aortic Valve AoV Pk Gume: 2.06 AoV Mn Gume: 1.32 AoV VTI: 0.43 AoV Pk Grad: 17.00 Aov Mn Grad: 9.00 LUIS ENRIQUE Cont.VTI: 1.37 LVOT LVOT Pk Gume: 0.60 LVOT Mn Gume: 0.40 LVOT VTI: 0.14 LVOT Pk Grad: 1.00 LVOT Mn Grad: 1.00 LVOT Diam: 2.30 LVOT Area: 4.15 Diastolic Function MV Pk E: 0.78 E'Medial: 10.00 E/E' Med: 7.80 E' Laterial: 9.49 E/E' Lat: 8.20 Right Ventricle TAPSE (mm): 18.40 TVS' Gume: 15.90 Tricuspid Valve TR Pk Gume: 2.47 TR Pk Grad: 24.00 RA Press: 3.00 RVSP: 27.00 Great Vessels Aorta Sinus of Valsalva: 3.86 2.0-3.[address] [place]: 2.93 1.7-3.4 cm Ao Asc: 3.70 2.1-3.4 cm Updated in Other Vendor System with Status of Final Fernando Canas MD electronically signed on 07/10/2024 9:52:39 AM with status of Final
== END ==
LOC: HO.CARD 10:07
PROVIDERS: PCP Internal Medicine; Visit Provider Internal Medicine Cardiovascular Disease
DX: I48.19 Other persistent atrial fibrillation (principal)
CPT/HCPCS: 93306

== ENCOUNTER → 2024-07-09 10:10 | Outpatient (BNV) | payer MEDICARE, SELFPAY | PROVIDERS: PCP Internal Medicine; Visit Provider Internal Medicine | DX: I35.0 Nonrheumatic aortic (valve) stenosis (principal); I42.2 Other hypertrophic cardiomyopathy; I34.0 Nonrheumatic mitral (valve) insufficiency; I36.1 Nonrheumatic tricuspid (valve) insufficiency | CPT/HCPCS: 93306 ==

== ENCOUNTER 2024-12-10 13:38 | Outpatient (AMB) | payer MEDICARE, SELFPAY ==
--- NOTE | 2024-12-10 13:39 | MHC.OFFVIS ---
Vital Signs 12/10/24 13:40 Height 5 ft 10 in Weight 196 lb 3.382 oz BMI 28.2 BP 120/78 Blood Pressure Location Lt brachial Position Sitting Pulse 76 Intake Visit Reasons: 6m s/p echo Intake Note: 6 month follow-up after echo feeling good Flight Service Specialist Required: No Allergies amoxicillin [Augmentin] Allergy (Unknown, Verified 05/07/24 09:39) Hives clavulanic acid [Augmentin] Allergy (Unknown, Verified 05/07/24 09:39) Itchy Eyes tamsulosin Allergy (Verified 05/15/24 11:36) Blister amiodarone Adverse Reaction (Unknown, Verified 05/15/24 11:37) Unknown Medication List - Last Reconciled 12/10/24 by Naun Smith MD apixaban (Eliquis) 5 mg PO BID diltiazem HCl CD 180 mg PO DAILY folic acid 1 mg PO DAILY valsartan 20 mg PO BID [Vitamin B-1 DAILY] [Vitamin B-6 DAILY] HPI Comments Details: Farhat comes for 6 month follow-up. He has been doing very well. He was no progressive symptoms of heart failure. Remains active around in his day-to-day activity. No progressive shortness of breath. No orthopnea, PND. He said he gets bilateral calf discomfort when he walks a lot. Does not get dose symptoms when he is standing for prolonged period of time. He claims that this is due to his bad back. No bleeding issues or neurologic events. No exertional chest pain. Last echocardiogram in June had shown improved LV EF of 55-60% with moderate aortic stenosis. [facility] Medical History Paroxysmal atrial flutter Cardiomyopathy History of cardioversion GERD (gastroesophageal reflux disease) Surgical History Hx of prior ablation treatment Hx of inguinal hernia repair Social History Alcohol intake: former Patient Tobacco Use Status: Former Tobacco user Substance Use Type: Marijuana Review of Systems Const Denies chills, Denies fatigue, Denies fever(s), Denies frequent falls, Denies weakness, Denies weight gain and Denies weight loss ENT Denies dizziness Card Denies chest pain, Denies leg edema, Denies lightheadedness, Denies palpitations, Denies dyspnea, Denies dyspnea on exertion, Denies orthopnea and Denies other (loss of consciousness) Resp Denies cough, Denies dyspnea and Denies dyspnea on exertion GI Denies hematochezia and Denies change in stool character Musc Denies abnormal gait, Denies muscle weakness, Denies numbness, Denies radiating pain into limb and Denies tingling Neuro Denies abnormal gait, Denies dizziness, Denies frequent falls, Denies numbness, Denies tingling and Denies weakness Endo Denies fatigue and Denies palpitations Physical Exam Vital Signs: Last Vital Signs Pulse 76 12/10/24 13:40 BP 120/78 12/10/24 13:40 BMI result Body Mass Index 28.2 Const General: cooperative, healthy appearing, comfortable and no acute distress Orientation/consciousness: patient oriented x3 Neck Neck: Yes normal visual inspection and Yes no JVD Resp Effort & Inspection: normal respiratory effort Auscultation: clear to auscultation bilaterally, no crackles, no rales, no rhonchi and no wheezes Cardio Jugular venous distension: no JVD Rate: regular rate Rhythm: abnormal rhythm irregularly irregular Heart sounds: S1 normal heart sound present, S2 normal heart sound present, no gallops, Murmur heart sound present systolic mid and no rubs Skin General skin exam: no rashes or lesions noted Neuro General: patient oriented x3 Extrem General: Yes normal to inspection, No no pedal edema and No calf tenderness Psych Appearance: grossly normal Mental Status: mental status grossly normal Speech and movement: Normal speech and movement present Office Procedures EKG Details: EKG shows atrial fibrillation at 69 beats per minute [id number], Complete Assessment & Plan Assessment & Plan (1) Persistent atrial fibrillation: Code(s): I48.19 - Other persistent atrial fibrillation Category: Medical Plan: Persistent atrial fibrillation has failed rhythm control approach including antiarrhythmic therapy which she did not tolerate. He has no new symptoms related to that. Good quality of life. Continue rate control approach at this point time. Continue full oral anticoagulation, currently on Eliquis 5 mg b.i.d.. Semi annual renal function test should be pursued. Complains of symptoms suggestive of claudication, will obtain bilateral lower extremity duplex. Advised to call me with any new symptoms. (2) Aortic stenosis: Code(s): I35.0 - Nonrheumatic aortic (valve) stenosis Category: Medical Plan: Aortic stenosis which is moderate by last echocardiogram. Continue to monitor by echocardiogram on annual basis. Cardinal symptoms associated with aortic stenosis were discussed. Continue aggressive risk factor modification. Target goal LDL less than 100 mg/dL. Continue aggressive blood pressure control which is currently well optimized. (3) History of cardiomyopathy: Comment: Improved with rate control Code(s): Z86.79 - Personal history of other diseases of the circulatory system Category: Medical Plan: Prior history of cardiomyopathy improved with rate control. Continue to monitor by echocardiogram on annual basis. Continue low-dose valsartan therapy for neurohormonal modulation. Avoidance of alcohol was discussed. Will follow up in the clinic in 7 months time, sooner p.r.n.. Orders: Orders Basic Metabolic Panel Today I48.92 - Unspecified atrial flutter US arterial duplex LE BI Today I73.9 - Peripheral vascular disease, unspecified CA echo transthoracic complete 7 Months I35.0 - Nonrheumatic aortic (valve) stenosis Coding Level of Care Code Est Pt Level 4 (97818) Complex EM visit Add On G2211 Diagnoses Persistent atrial fibrillation I48.19 Aortic stenosis I35.0 History of cardiomyopathy Z86.79 CPT Codes EKG - CPT: 13111-[id number], Complete ([id number])
[2024-12-10 13:40] VITALS: BP 120/78; PULSE 76; BMI 28.2
--- OUTSIDE RECORDS SUMMARY | 2024-12-10 16:59 | XMS_ITS | Data Portability ---
Author Organization [facility] Home Service Address [address] [place] [address] Assessment Encounter Date Assessment Date Assessment LastModified by Organization Details LastModified Time 11/20/2023 11/20/2023 Patient agreed and verbally consents to this audio and video Telehealth appt via a secure platform [email or web address] Not available 11/20/2023 14:24:38 Plan of Treatment Reminders Order Date Submit Date Provider Last Modified By Organization Details Last Modified Time Details Appointments None recorded. Lab CMP, serum or plasma 2023 024 [facility], [address] [place] [address], [address], 4 14:19:39 hemoglobin A1c, QN, blood 2023 024 [facility], [address] [place] [address], [address], 4 14:19:39 CBC w/ auto diff 2023 024 [facility], [address] [place] [address], [address], 4 14:19:39 lipid panel, blood 2023 024 [facility], [address] [place] [address], [address], 4 14:19:39 CMP, serum or plasma 2023 024 [facility], [address] [place] [address], [address], 4 11:26:16 hemoglobin A1c, QN, blood 2023 024 [facility], [address] [place] [address], [address], 4 14:29:22 CBC w/ auto diff 2023 024 [facility], [address] [place] [address], [address], 4 14:29:22 lipid panel, blood 2023 024 [facility], [address] [place] [address], [address], 4 11:26:16 PSA, serum or plasma 2023 024 [facility], [address] [place] [address], [address], 4 14:29:22 amylase + lipase, serum 2023 024 [facility], [address] [place] [address], [address], 4 14:29:22 gamma-glut amyl transferas e (ggt), serum 2023 024 [facility], [address] [place] [address], [address], 4 14:29:22 PTH (parathyro id hormone), intact + calcium, serum or plasma 2023 024 [facility], [address] [place] [address], [address], 4 14:29:22 TSH + free T4, serum 2023 024 [facility], [address] [place] [address], [address], 4 14:29:22 TSH + free T4, serum 2022 023 [facility], [address] [facility], [place], [address], 3 12:08:55 Referral orthopedic surgeon referral 2024 025 genny Tyson DO Ms, [address] [facility], [place], [address], 5 09:10:46 general surgeon referral 2023 024 genny Cohn MD, [address], [place], [address], 4 09:07:25 gastroente rologist referral 2023 024 lydia Ledesma, [address] [facility] [address], [place], [address], 4 09:18:57 Procedures None recorded. Surgeries None recorded. Imaging None recorded. Medication Orders diltiazem CD 180 mg capsule,ex tended release 24 hr 2022 023 [id number], [address] [place] [address], [id number], 3 10:31:10 Patient TargetsNo targets recorded. Patient InstructionsNo instructions recorded. 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 Referral for Hiatal hernia with gastroesophageal reflux second opinion for hiatal hernia and loza's esophagus Referring Physician: Shalini Fischer, Internal Medicine, Encounter Date: 11/20/2023 General Surgeon Referral for Diastasis recti symptomatic diastasis recti with GI upset and discomfort Referring Physician: Shalini Fischer, Internal Medicine, Encounter Date: 01/22/2024 Orthopedic Surgeon Referral for Acute tear of medial meniscus of right knee hx of meniscus tear, worsening pain, never got surgery Referring Physician: Shalini Fischer, Internal Medicine, Encounter Date: 12/03/2024 Results Created Date Observation Date Name Description Value Unit Range Abnormal Flag Note LastModifiedBy Organization Detail LastModifiedTime 03/09/2003/08/2023 US, echopa graysono gram No observ ation record ed. [email or web address] [facility] [address] [place], [address], 03/10/2023 08:33:39 12/19/1912/12/2023 US, mervat hughes No observ ation record ed. [email or web address] [facility] [address] [facility], [place], [address], 12/20/2023 09:27:30 Result Notes None recorded. Problems Name Problem SNOMED Code Status Onset Date Resolution Date Notes Provider Name and Address Organization Details Recorded Time Allergic rhinitis 65016137 Active 2017 [facility] Valadez [facility] 8 08:27:26 Hyperten sive disorder 12508328 Active 2017 Esther taveras [facility] 8 08:27:29 Hypergly cemia 51451163 Active 2017 Esther [facility]averas [facility] 8 08:27:34 Osteoma Active 2017 Esther taveras [facility] 8 08:27:49 Degenera tion of interver tebral disc 28965151 Active 2017 Esther taveras [place] Nikolay [facility] 8 08:28:03 Lyme disease 17534286 Active 2017 [facility] 8 08:28:09 Heart murmur 18500792 Active 2017 [facility] Valadez [facility] 8 08:28:17 Loza' s esophagu s 027924675 Active 2017 Esther taveras [facility] 8 08:28:24 Ulcer of esophagu s 44314926 [facility] 08:28:39 Prostate specific antigen above referenc e range 749665325 Active 2017 [facility] 8 08:28:47 Fracture of vertebra l column 68248138 Active 2017 Esther taveras [facility] 8 08:29:03 Abdomina l aortic aneurysm screenin g Active 2017 negative 2016 Estheronesimo taveras [facility] 8 08:29:23 Hypercho lesterol emia 23654744 Active 2018 REJI Dinh [address] [place], [address], [facility] 9 10:14:30 Impaired fasting glycemia 844156159 Active 2018 REJI Dinh [address] [place], [address], [facility] 9 10:15:00 Atrial paroxysm al tachycar wyatt 723301834 Active 2022 Jeffrey Gleason DO [address] [place], [address], [facility] 3 11:43:36 Hiatal hernia with gastroes ophageal reflux 527426375 Active 2022 YOANA DE PAZ [address] [place], [address], [facility] 3 10:43:59 Diastasi s of muscle 186418881 Active 2022 YOANA DE PAZ [address] [place], [address], [facility] 3 10:54:50 Syncope 247786251 Active 2022 YOANA DE PAZ [address] [place], [address], [facility] 3 15:34:43 Paroxysm al atrial flutter 633545323 Active 2022 YOANA DE PAZ [address] [place], [address], [facility] 3 10:28:39 Atrial fibrilla tion 57450405 Active 2022 YOANA DE PAZ [address] [place], [address], [facility] 3 11:42:01 Edema of lower extremit y 714178851 Active 2022 YOANA DE PAZ [address] [place], [address], [facility] 3 13:24:27 Constipa tion 32284106 Active 2023 YOANA DE PAZ [address] [place], [address], [facility] 4 14:24:04 Hyperpar athyroid ism 24394130 Active 2023 YOANA DE PAZ [address] [place] [address], [address], [facility] 4 08:43:16 Diastasi s recti 94421603 Active 2023 YOANA DE PAZ [address] [place], [address], [facility] 4 14:16:12 Acute tear of medial meniscus of right knee 0456087787 9661982 Active 2024 YOANA DE PAZ [address] [place], [address], [facility] 5 10:33:25 Impaired fasting glycemia 418517229 Completed 201705/22/2018December REJI Dinh [address] [place], [address], [facility] 9 10:15:00 Problem Notes None recorded. Procedures Surgical History Date Name Laterality Status Provider Name and Address Organization Details Recorded Time 4 Colonoscopy completed Neykendell Gleason [facility] 02/28/2024 11:57:51 6 Colonoscopy completed Samina Huff [facility] 02/06/2019 14:09:27 hernia repair completed Samina Huff [facility] 02/06/2019 14:10:22 Imaging Results Imaging Date Name Status LastModified by Organization Details LastModified Time 03/08/2023 US, echocardiogram completed [email or web address] [facility] [address] [place], [address], 03/10/2023 08:33:39 12/12/2023 US, parathyroid completed [email or web address] [facility] Central Scheduling [address] [place], [address], 12/20/2023 09:27:30 Procedure Notes None recorded. Medical Equipment None Reported. Allergies Allergen ID Allergen Name Allergen Category Reaction Reaction Severity Criticality Documentation Date Start Date Code Code System Note Provider Name and Address Organization Details Recorded Time 2212 Augmentin medicatio n Not available Not available Not available 05/22/2018 12386 2 RxNorm Esther Sylvester [facility] 8 08:27:20 6810 metoprolo l Not available Not available Not available Not available 02/07/2023 6918 RxNorm dizzi ness and facia l swell YOANA Pink [address] [place], [address], [facility] 3 10:31:27 8851 Multaq medicatio n Not available Not available Not available 12/03/2024 02369 9 RxNorm YOANA DE PAZ [address] [place], [address], [facility] 5 10:31:54 Medications Name Sig Start Date Stop Date Status Note LastModified by Organization Details LastModified Time furosemide 40 mg tablet TAKE 1 TABLET BY MOUTH EVERY DAY 04/10 completed Not Available Not Available Not Available atorvastati n 20 mg tablet TAKE 1 TABLET BY MOUTH EVERY DAY 11/10 completed Not Available Not Available Not Available lisinopril 20 mg-hydrochl orothiazide 12.5 mg tablet TAKE 1 TABLET BY MOUTH EVERY DAY 04/10 completed Not Available Not Available Not Available diltiazem CD 180 mg capsule,ext ended release 24 hr TAKE 1 CAPSULE BY MOUTH EVERY DAY active Not Available Not Available No t Available amiodarone 200 mg tablet Take 1 tablet every day by oral route. 02/10 completed Not Available Not Available Not Available famotidine 40 mg tablet take 1 tablet by mouth once a day 02/01 completed Not Available Not Available Not Available pantoprazol e 20 mg tablet,iesha yed release TAKE 2 TABLETS BY MOUTH TWICE DAILY 02/07 completed Not Available Not Available Not Available tamsulosin 0.4 mg capsule TAKE 1 CAPSULE BY MOUTH AT BEDTIME 04/10 completed Not Available Not Available Not Available benzonatate 100 mg capsule 12/28 completed Not Available Not Available Not Available pantoprazol e 40 mg tablet,iesha yed release TAKE 1 TABLET BY MOUTH TWICE DAILY 04/10 completed Not Available Not Available Not Available flecainide 100 mg tablet 04/10 completed Not Available Not Available Not Available omeprazole 20 mg capsule,del ayed release Take 1 capsule every day by oral route. active Not Available Not Available No t Available folic acid 1 mg tablet TAKE 1 TABLET BY MOUTH EVERY DAY active Not Available Not Available No t Available metoprolol succinate ER 25 mg tablet,exte nded release 24 hr TAKE 1 TABLET BY MOUTH DAILY 02/07 completed Not Available Not Available Not Available Vitamin B-6 50 mg tablet Take by oral route. 04/10 completed Not Available Not Available Not Available doxycycline hyclate 100 mg tablet TAKE 1 TABLET BY MOUTH TWICE DAILY FOR 7 DAYS 10/08 completed Not Available Not Available Not Available dicyclomine 10 mg capsule Take 1 capsule 3 times a day by oral route as needed for 14 days. 01/21 completed Not Available Not Available Not Available valsartan 40 mg tablet TAKE 1 TABLET BY MOUTH TWICE DAILY 11/12 completed Not Available Not Available Not Available furosemide 02/07 completed Not Available Not Available Not Available multivitami n qd 02/28 completed Not Available Not Available Not Available Chelated Minerals 100mg once per day for [facility] 12/28 completed Not Available Not Available Not Available B-1 100 mg tablet Take by oral route. active Not Available Not Available No t Available Multaq 400 mg tablet TAKE 1 TABLET BY MOUTH TWICE DAILY WITH A MEAL OR FOOD. STOP FLECANIDE 10/02 completed Not Available Not Available Not Available Eliquis 5 mg tablet TAKE 1 TABLET BY MOUTH TWICE DAILY active Not Available Not Available No t Available Sutab 1.479-0.188 -0.225 gram tablet TAKE 1 KIT BY MOUTH DIRECTED 12 TABLETS AT 5 PM THE NIGHT BEFORE PROCEDURE AND 12 TABLETS 6 HOURS BEFORE PROCEDURE 04/10 completed Not Available Not Available Not Available Vitals Date Recorded Body height Oxygen saturation Oxygen saturation in Arterial blood by Pulse oximetry Heart rate Systolic blood pressure Diastolic blood pressure Provider Name and Address Organization Details Last Updated DateTime 3 181.61 cm 98 % 98 % 50 /min 124 mm[Hg] 70 mm[Hg] YOANA DE PAZ [address] [place], [address] [place] [address] Internal [facility] 3 10:18:01 Date Recorded Body height Body mass index (BMI) Body weight Heart rate Oxygen saturation Oxygen saturation in Arterial blood by Pulse oximetry Systolic blood pressure Diastolic blood pressure Provider Name and Address Organization Details Last Updated DateTime 4 181.61 cm 27.1 kg/m2 53753.7 7 g 81 /min 96 % 96 % 124 mm[Hg] 84 mm[Hg] Kirsty Bess [facility] 4 13:59:12 Date Recorded Body height Body mass index (BMI) Body weight Heart rate Oxygen saturation Oxygen saturation in Arterial blood by Pulse oximetry Systolic blood pressure Diastolic blood pressure Provider Name and Address Organization Details Last Updated DateTime 4 181.61 cm 26.4 kg/m2 44930.0 9 g 72 /min 98 % 98 % 122 mm[Hg] 76 mm[Hg] Neal Garcia [facility] 4 15:56:30 Date Recorded Body height Body mass index (BMI) Body weight Heart rate Oxygen saturation Oxygen saturation in Arterial blood by Pulse oximetry Systolic blood pressure Diastolic blood pressure Provider Name and Address Organization Details Last Updated DateTime 5 181.61 cm 27.2 kg/m2 58405.2 9 g 78 /min 99 % 99 % 128 mm[Hg] 78 mm[Hg] Neal Link [facility] 5 10:23:19 Social History Question Answer Notes LastModified by Organizat ion Details LastModified Time Tobacco Smoking Status Former Smoker Not Available [facility] 07/21/2020 03:36:23 Which Illicit Or Recreational Drugs Have You Used? Marijuana Not Very Often [email or web address] Information not available 01/22/2024 What Was The Date Of Your Most Recent Tobacco Screening? 12/03/2024 [email or web address] Information not available 12/03/2024 Do You Or Have You Ever Used Any Other Forms Of Tobacco Or Nicotine? No [email or web address] Information not available 12/28/2022 Sex: Unknown Functional Status None recorded. Mental Status None recorded. Family History Nothing Reported. Medical History No medical history recorded. Immunizations Vaccine Type Date Status Note Provider Nam e and Address Organization Details Recorded Time COVID-19, mRNA, LNP-S, PF, 30 mcg/0.3 mL dose 01/10/2021 completed Not Available [facility] 3 14:09:25 COVID-19, mRNA, LNP-S, PF, 30 mcg/0.3 mL dose 01/31/2021 completed Not Available [facility] 3 14:09:25 Tdap 08/30/2021 completed Not Available [facility] 10/18/2022 14:09:25 Past Encounters Encounter ID Performer Location Encounter Start Date Encounter Closed Date Diagnosis/Indication Diagnosis SNOMED-CT Code Diagnosis ICD10 Code Diagnosis Note December REJI Dinh [facility] [address] [facility] [address] [address] 02/08/2019 11:51:42 02/08/2019 12:14:57 Essential hypertension 09313263 I10 well controlled Adult heal th examination 717958722 Z00.00 Gastroesop hageal reflux disease 324174898 K21.9 has HH - recommend continue omeprazole [id number] DO Ken Houserhan [facility] [address] [facility] [address] [address] 06/03/2019 15:28:22 06/03/2019 16:05:53 Adult health examination 462151609 Z00.01 doing well overall states is feeling well and his physical exam shows he is above average Active or passive immunization 434087185 Z23 [facility] flu [id number] Jeffrey Gleason [facility] [address] [facility] [address] 10/28/2019 16:18:26 10/28/2019 16:56:54 Spinal stenosis of lumbar region 69254416 M48.061 Moderate to severe - would like to see surgeon Multiple renal cysts 253 818222 N28.1 Found on MRI of lumbar spine Likely benign [id number] Jeffrey Gleason [facility] [address] [facility] [address] 03/31/2020 09:13:35 03/31/2020 10:16:11 Impaired fasting glycemia 058206117 R73.01 Will need to recheck A1C Diet has been good will set up annual CPE Hypercholesterolemia 136 83530 E78.00 Need to recheck next visit Hypertensive disorder 38 759797 I10 BP well controlled on current meds Loza's esophagus 3029 73137 K22.70 Has been well controlled [id number] Jeffrey Gleason [facility] Internal [facility] [address] [facility] [address] 06/15/2020 16:02:34 06/15/2020 16:49:22 Adult health examination 980298758 Z00.00 will check BW BP is good today Screening for cardiovascular system disease 183722941 Z13.6 will check BW Ganglion c yst of right hand 5477992794 69628 M67.441 will have him see specialist [id number] Jeffrey Gleason [facility] [address] [facility] [address] [address] 08/23/2021 11:57:50 08/23/2021 14:37:19 Impaired fasting glycemia 538070627 R73.01 Will need to recheck A1C Diet has been good Hypertensive disorder 38 329354 I10 BP well controlled on current meds Hypercholesterolemia 136 90834 E78.00 Need to recheck next visit Hyperglycemia 00076393 R 73.9 we will need some lab [id number] Jeffrey Gleason DO [facility] [address] [facility] [address] [address] [facility] [address] 02/28/2022 13:51:59 02/28/2022 14:27:24 Advance care planning 794025977 Z71.89 done Active or passive immunization 390141201 Z23 patient advised he is due for both pneumonia vaccines - He refuses vaccines at this time Hypertensive disorder 38 991977 I10 BP well controlled on current meds Hypercholesterolemia 136 44675 E78.00 Need to recheck next visit [id number] YOANA DE PAZ [facility] [address] [facility] [address] [place] [facility] [address] 12/28/2022 10:12:19 12/28/2022 14:01:28 Hiatal hernia with gastroesophageal reflux 472012917 K21.9 start on famotidine (with prilosec) as neededstar t on dicyclomin e (with above) as neededpati ent needs fu with GI for another a scope Diastasis of muscle 1112 93986 M62.08 patient needs eval of his diastasis recuts abdominisv medina significan t separation of muscleunli tammie PT would be effective at this point [id number] YOANA DE PAZ [facility] [address] [facility] [place] [facility] [address] 02/07/2023 09:56:09 02/07/2023 10:46:55 Paroxysmal atrial flutter 279958052 I48.3 poor effects with the metoprolol (drowsy and possible facial swelling)a greed to switch diltiazem Long-term current use of amiodarone 8474579413 53800 Z79.899 discussed side effects of the amiodarone not mentioned at the ERwill need to monitor his levelsdoes n't have a cardio f/u until aprilif he starts developing problems with his thyroid I would most likely d/c the medication [id number] YOANA DE PAZ [facility] [address] [facility], [place] [address] 11/20/2023 10:07:36 11/20/2023 14:42:25 Atrial fibrillation 75741553 I48.0 stable per patient Hiatal her syed with gastroesophageal reflux 143928257 K21.9 agreed to second opinion Impaired f asting glycemia 868582924 R73.01 will set up with lab workhe is due for it Constipation 05881099 K5 9.00 will set up with lab work see if additional causes for the constipati on Prostate s pecific antigen above reference range 277975518 R97.20 will set up with screening PSA as well Paroxysmal atrial flutter 150339363 I48.3 doing good, has fu with cardio with sleep study and with holter [id number] YOANA DE PAZ [facility] [address] [facility], [place] [address] 01/22/2024 13:49:50 01/22/2024 14:57:52 Depression screening 167215252 Z13.31 stable Diastasis recti 80832446 M62.08 agreed to gen surg referral to flip Hyperparathyroidism 6699 9008 E21.0 sees endo Hypertensive disorder 38 568158 I10 stable Impaired f asting glycemia 864909019 R73.01 will set up with lab workhe is due for it [id number] YOANA DE PAZ [facility] [address] [facility] [place] [address] 04/10/2024 15:50:28 04/10/2024 16:29:28 Renewal of prescription 616676499 Z76.0 stable Atrial fibrillation 4943 6004 I48.0 stable feels good Diastasis recti 91101603 M62.08 doing well, working on posture Loza's esophagus 3029 16056 K22.70 stable per last endoscope Hiatal her syed with gastroesophageal reflux 932475518 K21.9 [id number] YOANA DE PAZ [facility] [address] [facility],[place] [address] 12/03/2024 10:15:35 12/03/2024 11:29:10 Acute tear of medial meniscus of right knee 8834377148 0895921 S83.241A agreed to ortho referral Health Concerns Section Related Observation LastModified by Organization Detai ls LastModified Time None Recorded Concern Status LastModified by Organization Details LastModified Time None Recorded Advance Directives Directive None Recorded Payers Encounter Date Sequence Insurance Name Policy Number Policy Garcia Covered Member ID Garcia Member ID Guarantor Name 02/07/2023 1 [facility] (MEDICARE REPLACEMENT PPO) [id number] Farhat Brock [id number] Farhat Vinod 11/20/2023 1 [place]) [id number] Farhat Brock [id number] Farhat Vinod 01/22/2024 1 [place]PO) [id number] Farhat Brock [id number] Farhat Vinod 04/10/2024 1 [place]PO) [id number] Farhat Brock [id number] Farhat Vinod 12/03/2024 1 [place]PO) [id number] Farhat Brock [id number] Farhat Vinod Notes Date Note Type Note Provider Name and Address Organization Details Recorded Time 3 text/html hospital f/u the patient reports that he went to the ER due to the fact he has a near syncopal episodefound to have atrial flutter in the hospital went placed on a monitor the patient was started on metoprolol, amiodarone, eliquisthe patient is having side effects to the metoprolol he has noticed drowsiness and lip swellingthe patient agrees to switch to diltiazem instead which he has heard from his friend will need TSH and T4 testingseeing Dr. Smith in April; the pt does have a f/u with cardio tomorrow but at [place]; would prefer to stay with Dr. Smith > will see if they can see him sooner will have them see if he should cont the amiodaronethe patient agreed to talk to him about it feeling okay todayno chest pain or sobno palpitations today in office the patient agreed to this plan YOANA DE PAZ [address] [place] [address], [place], [address], [facility] 02/07/2023 10:43:03 4 text/html f/u cardio The patient is participating in this appointment via telemedicine communication with a phone call/video calling service (Mementoy)The patient consents to use of these platforms in place of an in-person appointment due to either sick symptoms the patient is presenting with or current office closure due to COVID exposure in order to keep our office staff and patients safe the patient and I discussed his follow up with his cardiologistthe patient will continue with his current medications per cardio the patient is laying off the alcohol due to afib, is causing a trigger having more GERD, hx of loza's esophagushx of hiatal hernia, would like eval for surgery as his symptoms may be triggering his afib will set up with lab work, routine has fu with cardio after sleep study and holter monitor YOANA DE PAZ [address] [place], [address], [facility] 11/20/2023 14:31:04 4 text/html f/u surgeon office the patient is doing okaythe patient reports that he had a cardioversion with his cardiodoing well the patient reports that he saw Dr. Ledesma at and they said he has a diastasis rectus the patient is doing a colonoscopy and endoscopy, will set up with Dr. Ledesma, has f/u on February 27, will call for the clean out the patient will probably need to abdomen surgerywill wait until the colonoscopy and endoscopy the patient and I will look into surgeon suggested [facility] for the surgery after his screening YOANA DE PAZ [address] [facility], [place], [address], [facility] 01/22/2024 14:23:43 4 text/html f/u BP the patient is doing wellwent through his med listthe patient reports he d/c some of his meds the patient is taking an allergy medication for seasonal allergiesthe patient saw Flip EDUARDO, has chronic inflammation in his stomach lining and esophaguscurrently taking doing much better with the medications and his bowel movements current medications are working well for him to control his a. fib, s/p cardioversionis currently in sinus rhythm YOANA DE PAZ [address] [place], [address], [facility] 04/10/2024 16:23:40 5 text/html c/o knee pain, R the patient reports that he was having more pain in his R knee, hx of medial meniscus tear that was not fixed since he declined the surgery since he was stable has started to progressively get worse with the painstarted more last year after he was putting in floors, was on his knees for a long time and started noticing more intermittent swelling, pain with twistingalong the medial joint line the patient would like to see Dr. Appiah send out referral YOANA DE PAZ [address] [place], [address], [facility] 12/03/2024 10:39:50
--- OUTSIDE RECORDS SUMMARY | 2024-12-10 16:59 | XMS_ITS | Continuity of Care Document ---
Author Organization [facility] Address [address] [facility] [place] [address] [place] [address] Assessment No assessment recorded. Plan of Treatment Reminders Order Date Submit Date Provider Last Modified By Organization Details Last Modified Time Details Appointments None recorded. Lab None recorded. Referral orthopedic surgeon referral 2024 025 genny Charltontrinidad Tyson Ms, [address] [facility], [place], [address], 5 09:10:46 Procedures None recorded. Surgeries None recorded. Imaging None recorded. Medication Orders None recorded. Patient TargetsNo targets recorded. Patient InstructionsNo instructions recorded. Reason for Referral Orthopedic Surgeon Referral for Acute tear of medial meniscus of right knee hx of meniscus tear, worsening pain, never got surgery Referring Physician: Shalini Fischer, Internal Medicine, Encounter Date: 12/03/2024 Problems Name Problem SNOMED Code Status Onset Date Resolution Date Notes Provider Name and Address Organization Details Recorded Time Allergic rhinitis 21289145 Active 2017 [facility] 8 08:27:26 Hyperten sive disorder 22314026 Active 2017 Esther taveras [place] [facility] 8 08:27:29 Hypergly cemia 07737668 Active 2017 Esther taveras [place] [facility] 8 08:27:34 Osteoma Active 2017 Esther taveras [place] [facility] 8 08:27:49 Degenera tion of interver tebral disc 63487873 Active 2017 [facility] 8 08:28:03 Lyme disease 03636207 Active 2017 Esther taveras [facility] 8 08:28:09 Heart murmur 44577510 Active 2017 Esther taveras [facility] 8 08:28:17 Soto' s esophagu s 121650470 Active 2017 Esther taveras [facility] 8 08:28:24 Ulcer of esophagu s 11779001 Active 2017 Esther taveras [facility] 8 08:28:39 Prostate specific antigen above referenc e range 698985056 Active 2017 Esther taveras [facility] 8 08:28:47 Fracture of vertebra l column 28090231 Active 2017 Esther taveras [facility] 8 08:29:03 Abdomina l aortic aneurysm screenin g Active 2017 negative 2016 Esther taveras [facility] 8 08:29:23 Hypercho lesterol emia 94630227 Active 2018 [facility] [address] [place], [address], [facility] 9 10:14:30 Impaired fasting glycemia 698908366 Active 2018 [facility] [address] [place], [address], [facility] 9 10:15:00 Atrial paroxysm al tachycar wyatt 164379635 Active 2022 Jeffrey Gleason DO [address] [place], [address], [facility] 3 11:43:36 Hiatal hernia with gastroes ophageal reflux 094799755 Active 2022 YOANA DE PAZ [address] [place], [address], [facility] 3 10:43:59 Diastasi s of muscle 244326065 Active 2022 YOANA DE PAZ [address] [place], [address], [facility] 3 10:54:50 Syncope 832421314 Active 2022 YOANA DE PAZ [address] [place], [address], [facility] 3 15:34:43 Paroxysm al atrial flutter 065618158 Active 2022 YOANA DE PAZ [address] [place], [address], [facility] 3 10:28:39 Atrial fibrilla tion 19185682 Active 2022 YOANA DE PAZ [address] [place], [address], [facility] 3 11:42:01 Edema of lower extremit y 174388956 Active 2022 YOANA DE PAZ [address] [place] [address], [address], [facility] 3 13:24:27 Constipa tion 60002252 Active 2023 YOANA DE PAZ [address] [place] [address], [address], [facility] 4 14:24:04 Hyperpar athyroid ism 47670969 Active 2023 YOANA DE PAZ [address] [place] [address], [address], [facility] 4 08:43:16 Diastasi s recti 85380954 Active 2023 YOANA DE PAZ [address] [place] [address], [address], [facility] 4 14:16:12 Acute tear of medial meniscus of right knee 5962989006 7981797 Active 2024 YOANA DE PAZ [address] [place], [address], [facility] 5 10:33:25 Impaired fasting glycemia 896305676 Completed 201705/22/2018December REJI Dinh [address] [place], [address], [facility] 9 10:15:00 Problem Notes None recorded. Procedures Surgical History Date Name Laterality Status Provider Name and Address Organization Details Recorded Time 4 Colonoscopy completed Ney Gleason [facility] 02/28/2024 11:57:51 6 [facility] 14:09:27 hernia repair completed [facility] 02/06/2019 14:10:22 Imaging Results None recorded. Procedure Notes None recorded. Medical Equipment None Reported. Allergies Allergen ID Allergen Name Allergen Category Reaction Reaction Severity Criticality Documentation Date Start Date Code Code System Note Provider Name and Address Organization Details Recorded Time 2212 Augmentin medicatio n Not available Not available Not available 05/22/2018 54632 2 RxNorm Esther Sylvester [facility] 8 08:27:20 6810 metoprolo l Not available Not available Not available Not available 02/07/2023 6918 RxNorm dizzi ness and facia l swell YOANA Pink [address] [place], [address], [facility] 3 10:31:27 8851 Multaq medicatio n Not available Not available Not available 12/03/2024 76232 9 RxNorm YOANA DE PAZ [address] [place], [address], [facility] 5 10:31:54 Medications Name Sig Start Date [...] Chelated Minerals 100mg once per day for [facility] 12/28 completed Not Available Not Available Not [...] Not Available Vitals Date Recorded Body height Body mass index (BMI) Body weight Heart rate Oxygen saturation Oxygen saturation in Arterial blood by Pulse oximetry Systolic blood pressure Diastolic blood pressure Provider Name and Address Organization Details Last Updated DateTime 5 181.61 cm 27.2 kg/m2 48656.2 9 g 78 /min 99 % 99 % 128 mm[Hg] 78 mm[Hg] [facility] 5 10:23:19 Social History Question Answer Notes LastModified by Organizat ion Details LastModified Time Tobacco Smoking Status Former Smoker Not Available [facility] 07/21/2020 03:36:23 Which Illicit Or Recreational Drugs Have You Used? Marijuana Not Very Often [email or web address] Information not available 01/22/2024 What Was The Date Of Your Most Recent Tobacco Screening? 12/03/2024 [email or web address] Information not available 12/03/2024 Do You Or Have You Ever Used Any Other Forms Of Tobacco Or Nicotine? No [email or web address] Information not available 12/28/2022 Sex: Unknown Functional Status None recorded. Mental Status None recorded. Family History Nothing Reported. Medical History No medical history recorded. Immunizations Vaccine Type Date Status Note Provider Nam e and Address Organization Details Recorded Time COVID-19, mRNA, LNP-S, PF, 30 mcg/0.3 mL dose 01/10/2021 completed Not Available [facility] 3 14:09:25 COVID-19, mRNA, LNP-S, PF, 30 mcg/0.3 mL dose 01/31/2021 completed Not Available [facility] 14:09:25 Tdap 08/30/2021 completed Not Available [facility] 10/18/2022 14:09:25 Past Encounters Encounter ID Performer Location Encounter Start Date Encounter Closed Date Diagnosis/Indication Diagnosis SNOMED-CT Code Diagnosis ICD10 Code Diagnosis Note [id number] YOANA DE PAZ Internal Medicine [address] [facility],[place] [address] 12/03/2024 10:15:35 12/03/2024 11:29:10 Acute tear of medial meniscus of right knee [id number] 4717434 S83.241A agreed to ortho referral Health Concerns Section Related Observation LastModified by Organization Detai ls LastModified Time None Recorded Concern Status LastModified by Organization Details LastModified Time None Recorded Payers Encounter Date Sequence Insurance Name Policy Number Policy Garcia Covered Member ID Garcia Member ID Guarantor Name 12/03/2024 1 [facility]IC[place] BLUE (MEDICARE REPLACEMENT PPO) [id number] Farhat Brock [id number] Farhat Brock Notes Date Note Type Note Provider Name a nd Address Organization Details Recorded Time 12/03/2024 text/html c/o knee pain, R the patient [...] send out referral YOANA DE PAZ [address] [place], [address], [facility] 12/03/2024 10:39:50
== END 2024-12-10 14:00 | disposition home or self-care (01) ==
LOC: HO.HCS 13:39
PROVIDERS: PCP Internal Medicine; Visit Provider Internal Medicine Cardiovascular Disease
DX: I48.19 Other persistent atrial fibrillation (principal); I35.0 Nonrheumatic aortic (valve) stenosis; Z86.79 Personal history of other diseases of the circulatory system
CPT/HCPCS: 93010; 99214; G2211

== ENCOUNTER 2024-12-10 13:38 | Outpatient (REF) | payer MEDICARE, SELFPAY ==
[2024-12-10 15:08] LABS: Anion Gap 7 (12-20); Blood Urea Nitrogen 15 mg/dL (9-16); Calcium 10.5 mg/dL (8.4-10.2); Carbon Dioxide 29 mmol/L (22-29); Chloride 105 mmol/L (96-108); Estimated Glomerular Filt Rate > 60; Glucose Random 93 mg/dL (60-115); Potassium 4.3 mmol/L (3.3-5.1); Sodium 137 mmol/L (135-145)
== END 2024-12-10 13:39 | disposition home or self-care (01) ==
LOC: HO.LAB 13:38
PROVIDERS: PCP Internal Medicine; Visit Provider Internal Medicine Cardiovascular Disease
DX: I48.92 Unspecified atrial flutter (principal); I48.91 Unspecified atrial fibrillation; I35.0 Nonrheumatic aortic (valve) stenosis; Z86.79 Personal history of other diseases of the circulatory system
CPT/HCPCS: 36415; 80048; 93005; 99212

== ENCOUNTER 2025-03-26 09:10 | Outpatient (REF) | payer MEDICARE, MEDICAID, SELFPAY ==
[2025-03-26 09:27] LABS: MANUAL DIFF FLAG NO
[2025-03-26 10:18] LABS: Hematocrit 42.6 % (42.0-52.0); Hemoglobin 14.7 g/dl (14.0-18.0); Imm Gran Abs Auto 0.03 X10*3/uL (0.00-0.03); Imm Gran Pct Auto 0.5 % (0.0-0.4); Lymphocytes Absolute Auto 1.9 X10*3/uL (1.2-4.9); Mean Corpuscular HGB Conc 34.5 g/dl (31.0-36.0); Mean Corpuscular Hemoglobin 32.3 pg (27.0-33.0); Mean Corpuscular Volume 93.6 fL (80.0-98.0); NRBC Abs Auto 0.000 X10*3/uL (0.0-0.012); NRBC Pct Auto 0.0 /100WBC (0.0-0.2); Platelet Count 226 X10*3/uL (160-400); Red Blood Count 4.55 X10*6/uL (4.60-5.80); White Blood Count 6.5 X10*3/uL (4.8-10.8)
[2025-03-26 10:56] LABS: Hemoglobin A1C 134.8815 umol/L; Total Hemoglobin (HGBA1C) 3834.9407 umol/L
[2025-03-26 11:01] LABS: Alanine Aminotransferase 29 U/L (0-40); Albumin Level 4.5 g/dL (3.5-5.0); Alkaline Phosphatase 56 U/L (39-117); Anion Gap 8 (12-20); Aspartate Amino Transferase 23 U/L (5-37); Blood Urea Nitrogen 13 mg/dL (9-16); Calcium 10.5 mg/dL (8.4-10.2); Carbon Dioxide 29 mmol/L (22-29); Chloride 105 mmol/L (96-108); Cholesterol 260 mg/dL (<200); Estimated Glomerular Filt Rate > 60; HDL Cholesterol 80 mg/dL (>40); Potassium 4.2 mmol/L (3.3-5.1); Sodium 138 mmol/L (135-145); Total Protein 7.2 g/dL (6.5-8.0); Triglycerides 66 mg/dL (<150)
[2025-03-27 12:03] LABS: Free Prostate Spec Ag 0.8 ng/mL; Percent Free Prostate Spec Ag NOT CALCULATED % (calc) (>25)
== END 2025-03-26 09:11 | disposition home or self-care (01) ==
LOC: HO.LAB 09:10
PROVIDERS: PCP Internal Medicine; Visit Provider Physician Assistant
DX: I10 Essential (primary) hypertension (principal)
CPT/HCPCS: 36415; 80053; 80061; 83036; 84154; 85025

== ENCOUNTER → 2025-06-18 09:56 | Outpatient (REF) | payer MEDICARE, MEDICAID, SELFPAY ==
--- NOTE | 2025-06-18 09:58 | CA_ITS ---
Transthoracic Echocardiogram Patient (Last, First, Middle): Farhat Brock, Gender: M Date of : 1950 Age: 75 Procedure Date: 06/18/2025 Procedure Type: Transthoracic Echocardiogram Location: OP Height: 177.8 cm Weight: 83.46 kg BSA: 2.01 m2 Heart Rate: 74 bpm BP: 120 / 76 mmHg Referring MD: Naun Smith MD Symptoms: I35.0 - Nonrheumatic aortic (valve) stenosis Study Quality: Adequate ECG Rhythm: Atrial Fibrillation Conclusions: - The left ventricular systolic function is low normal. The visually estimated ejection fraction is between 50-55%. - There is moderate aortic valve stenosis. Findings Left Ventricle Normal left ventricular cavity size. There is mildly increased left ventricular wall thickness. The left ventricular systolic function is low normal. The visually estimated ejection fraction is between 50-55%. Diastolic function is indeterminate on the basis of available data. Severe focal hypertrophy of the basal septum. Right Ventricle Normal right ventricular cavity size and systolic function. Atria The left atrium is mildly dilated. The right atrium is normal in size. Aortic Valve There is moderate calcification of the aortic valve. There is moderate aortic valve stenosis. There is no aortic valve regurgitation. Dimensionless index 0.26. Stroke volume index 27ml/m2. Mitral Valve There is mild mitral annular calcification. There is mild mitral valve regurgitation. There is no mitral valve stenosis. Pulmonic Valve There is trace pulmonic valve regurgitation. Tricuspid Valve There is trace tricuspid valve regurgitation. There is no evidence of pulmonary hypertension. Great Vessels The asc aorta is normal in size. Venous The inferior vena cava is normal in size and collapses greater than 50% with inspiration. Pericardium/Pleural There is a trivial pericardial effusion. Prior Study Comparison No significant change compared to prior study dated: 07/09/2024. Measurements 2D Linear Measurements IVSd: 1.05 0.6-0.9/0.6-1.0 cm LVIDd: 3.69 3.9-5.3/4.2-5.9 cm LVIDd Index: 1.84 2.4-3.2/2.2-3.1 cm/m2 LVIDs: 2.75 2.0-3.6 cm LVPWd: 1.06 0.7-1.1 cm LA Diam: 4.50 2.7-3.8/3.0-4.0 cm LAIDs Index: 2.24 1.5-2.3 cm/m2 LV Mass: 150.66 67-162/88-224 g LV Mass Index: 74.96 43-95/49-115 g/m2 LVOT Diam: 2.40 3.0+(-)1.3 cm 2D Systolic Function EF 4C: 59.90 >55% EF 2C: 41.60 >55% EF BiP: 50.90 >55% Mitral Valve MV Pk E: 0.86 E'Lateral: 8.81 E'Medial: 8.65 E/E' Med: 9.90 E/E' Lat: 9.80 Aortic Valve AoV Pk Gume: 2.43 AoV Mn Gume: 1.79 AoV VTI: 0.50 AoV Pk Grad: 24.00 Aov Mn Grad: 14.00 LUIS ENRIQUE Cont.VTI: 1.10 LVOT LVOT Pk Gume: 0.63 LVOT Mn Gume: 0.45 LVOT VTI: 0.12 LVOT Pk Grad: 2.00 LVOT Mn Grad: 1.00 LVOT Diam: 2.40 LVOT Area: 4.52 Diastolic Function MV Pk E: 0.86 E'Medial: 8.65 E/E' Med: 9.90 E' Laterial: 8.81 E/E' Lat: 9.80 Right Ventricle TAPSE (mm): 15.00 TVS' Gume: 16.50 Tricuspid Valve TR Pk Gume: 2.13 TR Pk Grad: 18.00 RA Press: 3.00 RVSP: 21.00 Great Vessels Aorta Sinus of Valsalva: 3.60 2.0-3.5 cm Ao Asc: 3.60 2.1-3.4 cm Pulmonary Valve PV Pk Gume: 0.86 Peak PV Grad: 3.00 NC Pk Gume: 1.96 Updated in Other Vendor System with Status of Final Fernando Canas MD electronically signed on 06/20/2025 4:05:59 PM with status of Final
--- OUTSIDE RECORDS SUMMARY | 2025-06-18 11:02 | XMS_ITS | Encounter Summary ---
Author Organization [facility] Address [address] [place] [address] Phone Care Team Providers Care Carton Packaging Machine Operator Name Role Phone Jeffrey Gleason DO Primary Care Provider [phone] Yasir Ledesma DO Unavailable Jeffrey Gleason DO Primary Care Provider [phone] Encounter Details Date Type Department Care Team (Late st Contact Info) Description 06/04/2024 Transcribe Orders [facility] [address] [place] [address] Jeffrey Gleason DO [address] [facility] [address] [place], [place] [id number] Special screening for malignant neoplasm of prostate (Primary Dx) Social History Tobacco Use Types Packs/Day Years Used Date Smoking Tobacco: Former Cigarettes Smokeless Tobacco: Never Education Answer Date Recorded Are you interested in more education? Not on audrey e 01/29/2023 Are you concerned about learning? Not on file 01/29/2023 No 01/29/2023 No 01/29/2023 Digital Access Answer Date Recorded No 02/12/2023 No 02/12/2023 Reliable internet access at home? Not on file 02/12/2023 Device with a working camera? Not on file Sex and Gender Information Value Date Recorded Sex Assigned at Not on file Legal Sex Male 6:03 PM EST Gender Identity Not on file Sexual Orientation Not on file documented as of this encounter Plan of Treatment Not on file documented as of this encounter Results * (ABNORMAL) PSA, free and total (06/04/2024 9:26 AM EDT) PSA, TOTAL 14.0(H) <=6.5 ng/mL [facility] [address] [place] FREE PSA 1.8 ng/mL [facility]PATH [place] FREE/TOT PSA RATIO SEE NOTE ratio [facility] Comment: (NOTE) Ratio not calculated because clinical usefulness is not defined except in range of total PSA 4.0-10.0 ng/mL. ADDITIONAL INFORMATION The testing method is an electrochemiluminescence assay manufactured by [employer] and performed on the Modular or Lexa system. Values obtained with different assay methods or kits may be different and cannot be used interchangeably. Test results cannot be interpreted as absolute evidence for the presence or absence of malignant disease. Blood 06/04/2024 9:26 AM EDT 06/04/2024 9:30 AM EDT us Jeffrey Gleason DO LAB BLOOD ORDERABLES Final Resul t [facility] [address] [place] [address] documented in this encounter Visit Diagnoses Diagnosis Special screening for malignant neoplasm of prostate- Primary documented in this encounter Additional Health Concerns Infection Onset Date Last Indicated Resolved Time COVID-19 06/02/2025 06/02/2025 documented as of this encounter Care Teams [employer] Packaging Machine Operator Relationship Specialty Start Date End Date Jeffrey Gleason DO [email or web address] PCP - General 07/04/17 05/26/25 Jeffrey Gleason DO [address] [place] [address] [email or web address] PCP - General Internal Medicine 05/27/25 Yasir Ledesma DO [address] [place] [address] Gastroenterology 01/05/24 documented as of this encounter Additional Source Comments The information contained in this document represents components of the legal health record. It is not the complete legal health record.[facility]
--- OUTSIDE RECORDS SUMMARY | 2025-06-18 11:02 | XMS_ITS | Encounter Summary ---
Author Organization [facility] Address [address] [facility] [address] [place] [phone] Phone Care Team Providers Care Service Advisor Name Role Phone Oswaldo Michael DO Primary Care Provider [phone] Yasir Ledesma DO Unavailable Oswaldo Michael DO Primary Care Provider [phone] Encounter Details Date Type Department Care Team (Late st Contact Info) Description 02/28/2024 [employer] Generated VIRTUAL DEPARTMENT [address] [place] [phone] Unknown, Unknown, Social History Tobacco Use Types Packs/Day Years [...] on file documented as of this encounter Procedure Notes * Yasir Ledesma, DO - 02/28/2024 10:26 AM EDTAssociated Order(s): ENDOSCOPY, COLON [employer] Patient: Farhat Brock : 1950 Account: [id number] Procedure: Colonoscopy Date: 02/28/2024 Attending Physician: Yasir Ledesma DO Room: Procedure Room 2 Referring MD: OSWALDO MICHAEL Additional Staff: Flavia Kruger; Delroy Rayo MD Indications: - Screening for colorectal malignant neoplasm Medications: - Propofol IV 290 mg - Lidocaine IV 80 mg - Monitored Anesthesia Care Complications: - No immediate complications. Estimated Blood Loss: - Estimated blood loss: none. Procedure: - Prior to the procedure, a History and Physical was performed, and patient medications and allergies were reviewed. The patient is competent. The risks and benefits of the procedure and the sedation options and risks were discussed with the patient. All questions were answered and informed consent was obtained. Patient identification and proposed procedure were verified by the physician, the nurse and the anesthesiologist in the procedure room in the pre-procedure area. Mental Status Examination: alert and oriented. Airway Examination: normal oropharyngeal airway and neck mobility. Respiratory Examination: clear to auscultation. CV Examination: normal. Prophylactic Antibiotics: The patient does not require prophylactic antibiotics. Prior Anticoagulants: The patient has taken no anticoagulant or antiplatelet agents. ASA Grade Assessment: II - A patient with mild systemic disease. After reviewing the risks and benefits, the patient was deemed in satisfactory condition to undergo the procedure. The anesthesia plan was to use monitored anesthesia care (MAC). Immediately prior to administration of medications, the patient was re-assessed for adequacy to receive sedatives. The heart rate, respiratory rate, oxygen saturations, blood pressure, adequacy of pulmonary ventilation, and response to care were monitored throughout the procedure. The physical status of the patient was re-assessed after the procedure. - The colonoscope was introduced through the anus and advanced to the terminal ileum, with identification of the appendiceal orifice and ileocecal valve. - The quality of the bowel preparation was evaluated using the BBPS ([place] Bowel Preparation Scale) with scores of: Right Colon = 3, Transverse Colon = 3 and Left Colon = 3 (entire mucosa seen well with no residual staining, small fragments of stool or opaque liquid). The total BBPS score equals 9. - The quality of the bowel preparation was excellent. The ileocecal valve, appendiceal orifice, and rectum were photographed. Findings: - The digital rectal exam findings include enlarged prostate. Pertinent negatives include normal sphincter tone. - A 2 mm polyp was found in the cecum. The polyp was sessile. The polyp was removed with a cold biopsy forceps. Resection and retrieval were complete. - Internal hemorrhoids were found during retroflexion. - The exam was otherwise normal throughout the examined colon. Impression: - Enlarged prostate found on digital rectal exam. - One 2 mm polyp in the cecum, removed with a cold biopsy forceps. Resected and retrieved. - Internal hemorrhoids. Recommendation: - Patient has a contact number available for emergencies. The signs and symptoms of potential delayed complications were discussed with the patient. Return to normal activities tomorrow. Written discharge instructions were provided to the patient. - Resume previous diet. - Continue present medications. - Await pathology results. - Repeat colonoscopy date to be determined after pending pathology results are reviewed for surveillance. Procedure Code(s): - 63237, Colonoscopy, flexible; with biopsy, single or multiple Diagnosis Code(s): - Z12.11, Encounter for screening for malignant neoplasm of colon - N40.0, Benign prostatic hyperplasia without lower urinary tract symptoms - D12.0, Benign neoplasm of cecum - K64.8, Other hemorrhoids CPT(R) - 2023 copyright [employer]. All Rights Reserved. The CPT codes, CCI edits and ICD codes generated are intended as suggestions and were generated based on input data. These codes are preliminary and upon youth court judge review may be revised to meet current compliance and payer requirements. The provider is responsible for the final determination of appropriate codes, and modifiers. Scope In Time: 10:35:44 AM Scope Out Time: 10:52:10 AM Scope Withdrawal Time: 00:09:42 Total Procedure Duration: 00:16:26 Dr. Yasir Ledesma This document has been electronically signed. Note Initiated:02/28/2024 Note Completed:02/28/2024 10:59 AM CC OTHER PROVIDER: PRIMARY CARE: OSWALDO MICHAEL MD * Yasir Ledesma DO - 02/28/2024 9:49 AM EDTAssociated Order(s): ENDOSCOPY PROCEDURE [facility] Patient: Farhat Brock : 1950 Account: [id number] Procedure: Upper GI endoscopy Date: 02/28/2024 Attending Physician: Yasir Ledesma DO Room: Procedure Room 2 Referring MD: OSWALDO MICHAEL Additional Staff: Flavia Kruger; Delroy Rayo MD Indications: - Epigastric abdominal pain - Heartburn Medications: - Propofol IV 140 mg - Lidocaine IV 80 mg - Propofol IV 290 mg Complications: - No immediate complications. Estimated Blood Loss: - Estimated blood loss was minimal. Procedure: - Prior to the procedure, a History and Physical was performed, and patient medications and allergies were reviewed. The patient's tolerance of previous anesthesia was also reviewed. The risks and benefits of the procedure and the sedation options and risks were discussed with the patient. All questions were answered, and informed consent was obtained. Prior Anticoagulants: The patient has taken Eliquis (apixaban), last dose was 3 days prior to procedure. ASA Grade Assessment: III - A patient with severe systemic disease. After reviewing the risks and benefits, the patient was deemed in satisfactory condition to undergo the procedure. - The gastroscope was introduced through the mouth and advanced to the third part of the duodenum. - The upper GI endoscopy was accomplished without difficulty. - The patient tolerated the procedure well. Findings: - The Z-line was irregular and was found 40 cm from the incisors. Biopsies were taken with a cold forceps for histology. - A 6 cm hiatal hernia was present. - Localized mildly erythematous mucosa was found in the prepyloric region of the stomach. Biopsies were taken with a cold forceps for histology. - Localized moderate mucosal changes characterized by congestion, erythema and ulceration were found in the second portion of the duodenum and in the third portion of the duodenum. Biopsies were taken with a cold forceps for histology. Impression: - Z-line irregular, 40 cm from the incisors. Biopsied. - 6 cm hiatal hernia. - Erythematous mucosa in the prepyloric region of the stomach. Biopsied. - Mucosal changes in the duodenum. Biopsied. Recommendation: - Patient has a contact number available for emergencies. The signs and symptoms of potential delayed complications were discussed with the patient. Return to normal activities tomorrow. Written discharge instructions were provided to the patient. - Resume previous diet. - Continue present medications. - Await pathology results. - Perform a colonoscopy today. Procedure Code(s): - 27968, Esophagogastroduodenoscopy, flexible, transoral; with biopsy, single or multiple Diagnosis Code(s): - R10.13, Epigastric pain - R12, Heartburn - K22.89, Other specified disease of esophagus - K44.9, Diaphragmatic hernia without obstruction or gangrene - K31.89, Other diseases of stomach and duodenum CPT(R) - 2023 copyright [employer]. All Rights Reserved. The CPT codes, CCI edits and ICD codes generated are intended as suggestions and were generated based on input data. These codes are preliminary and upon youth court judge review may be revised to meet current compliance and payer requirements. The provider is responsible for the final determination of appropriate codes, and modifiers. Scope In Time: 10:25:21 AM Scope Out Time: 10:29:38 AM Scope Withdrawal Time: 00:03:10 Total Procedure Duration: 00:04:17 Dr. Yasir Ledesma This document has been electronically signed. Note Initiated:02/28/2024 Note Completed:02/28/2024 10:54 AM CC OTHER PROVIDER: PRIMARY CARE: OSWALDO MICHAEL MD documented in this encounter Plan of Treatment Not on file documented as of this encounter Procedures Procedure Name Priority Date/Time Associated Diagnosis Comments ENDOSCOPY, COLON 02/28/2024 10:2 6 AM EDT ENDOSCOPY PROCEDURE 02/28/2024 9 :49 AM EDT documented in this encounter Results * ENDOSCOPY, COLON (02/28/2024 10:26 AM EDT) 02/28/2024 10:2 6 AM EDT Narrative Procedure Note Yasir Ledesma DO - 02/28/2024 10:26 AM EDT [facility] Patient: Farhat Brock : 1950 Account: [id number] Procedure: Colonoscopy Date: 02/28/2024 Attending Physician: Yasir Ledesma DO Room: Procedure Room 2 Referring MD: OSWALDO MICHAEL Additional Staff: Flavia Kruger; Delroy Rayo MD Indications: - Screening for colorectal malignant neoplasm Medications: - Propofol IV 290 mg - Lidocaine IV 80 mg - Monitored Anesthesia Care Complications: - No immediate complications. Estimated Blood Loss: - Estimated blood loss: none. Procedure: - Prior to the procedure, a History and Physical was performed, andpatient medications and allergies were reviewed. The patient is competent. Therisks and benefits of the procedure and the sedation options and risks were discussed with the patient. All questions were answered and informed consent was obtained. Patient identification and proposed procedure were verified bythe physician, the nurse and the anesthesiologist in the procedure room in the pre-procedure area. Mental Status Examination: alert and oriented. Airway Examination: normal oropharyngeal airway and neck mobility. Respiratory Examination: clear to auscultation. CV Examination: normal. Prophylactic Antibiotics: The patient does not require prophylactic antibiotics. Prior Anticoagulants: The patient has taken no anticoagulant or antiplateletagents. ASA Grade Assessment: II - A patient with mild systemic disease. After reviewing the risks and benefits, the patient was deemed in satisfactory condition to undergo the procedure. The anesthesia plan was to usemonitored anesthesia care (MAC). Immediately prior to administration of medications, the patient was re-assessed for adequacy to receive sedatives. The heart rate, respiratory rate, oxygen saturations, blood pressure, adequacy ofpulmonary ventilation, and response to care were monitored throughout the procedure. The physical status of the patient was re-assessed after the procedure. - The colonoscope was introduced through the anus and advanced to the terminal ileum, with identification of the appendiceal orifice and ileocecal valve. - The quality of the bowel preparation was evaluated using the BBPS([place] Bowel Preparation Scale) with scores of: Right Colon = 3, Transverse Colon= 3 and Left Colon = 3 (entire mucosa seen well with no residual staining,small fragments of stool or opaque liquid). The total BBPS score equals 9. - The quality of the bowel preparation was excellent. The ileocecalvalve, appendiceal orifice, and rectum were photographed. Findings: - The digital rectal exam findings include enlarged prostate. Pertinent negatives include normal sphincter tone. - A 2 mm polyp was found in the cecum. The polyp was sessile. The polyp was removed with a cold biopsy forceps. Resection and retrieval were complete. - Internal hemorrhoids were found during retroflexion. - The exam was otherwise normal throughout the examined colon. Impression: - Enlarged prostate found on digital rectal exam. - One 2 mm polyp in the cecum, removed with a cold biopsy forceps. Resected and retrieved. - Internal hemorrhoids. Recommendation: - Patient has a contact number available for emergencies. The signs and symptoms of potential delayed complications were discussed with thepatient. Return to normal activities tomorrow. Written discharge instructions were provided to the patient. - Resume previous diet. - Continue present medications. - Await pathology results. - Repeat colonoscopy date to be determined after pending pathologyresults are reviewed for surveillance. Procedure Code(s): - 56086, Colonoscopy, flexible; with biopsy, single or multiple Diagnosis Code(s): - Z12.11, Encounter for screening for malignant neoplasm of colon - N40.0, Benign prostatic hyperplasia without lower urinary tractsymptoms - D12.0, Benign neoplasm of cecum - K64.8, Other hemorrhoids CPT(R) - 2023 copyright [employer]. All RightsReserved. The CPT codes, CCI edits and ICD codes generated are intended assuggestions and were generated based on input data. These codes are preliminary andupon youth court judge review may be revised to meet current compliance and payer requirements. The provider is responsible for the final determination of appropriatecodes, and modifiers. Scope In Time: 10:35:44 AM Scope Out Time: 10:52:10 AM Scope Withdrawal Time: 00:09:42 Total Procedure Duration: 00:16:26 Dr. Yasir Ledesma This document has been electronically signed. Note Initiated:02/28/2024 Note Completed:02/28/2024 10:59 AM CC OTHER PROVIDER: PRIMARY CARE: OSWALDO MICHAEL MD us Yasir Ledesma DO GI PROCEDURE ORDERABLES Final Re sult * ENDOSCOPY PROCEDURE (02/28/2024 9:49 AM EDT) 02/28/2024 9:49 AM EDT Narrative Procedure Note Yasir Ledesma DO - 02/28/2024 9:49 AM EDT [facility] Patient: Farhat Brock : 1950 Account: [id number] Procedure: Upper GI endoscopy Date: 02/28/2024 Attending Physician: Yasir Ledesma DO Room: Procedure Room 2 Referring MD: OSWALDO MICHAEL Additional Staff: Flavia Kruger; Delroy Rayo MD Indications: - Epigastric abdominal pain - Heartburn Medications: - Propofol IV 140 mg - Lidocaine IV 80 mg - Propofol IV 290 mg Complications: - No immediate complications. Estimated Blood Loss: - Estimated blood loss was minimal. Procedure: - Prior to the procedure, a History and Physical was performed, andpatient medications and allergies were reviewed. The patient's tolerance ofprevious anesthesia was also reviewed. The risks and benefits of the procedure andthe sedation options and risks were discussed with the patient. All questions were answered, and informed consent was obtained. Prior Anticoagulants:The patient has taken Eliquis (apixaban), last dose was 3 days prior toprocedure. ASA Grade Assessment: III - A patient with severe systemic disease. After reviewing the risks and benefits, the patient was deemed in satisfactory condition to undergo the procedure. - The gastroscope was introduced through the mouth and advanced to thethird part of the duodenum. - The upper GI endoscopy was accomplished without difficulty. - The patient tolerated the procedure well. Findings: - The Z-line was irregular and was found 40 cm from the incisors.Biopsies were taken with a cold forceps for histology. - A 6 cm hiatal hernia was present. - Localized mildly erythematous mucosa was found in the prepyloric region of the stomach. Biopsies were taken with a cold forceps for histology. - Localized moderate mucosal changes characterized by congestion,erythema and ulceration were found in the second portion of the duodenum and in the third portion of the duodenum. Biopsies were taken with a cold forceps for histology. Impression: - Z-line irregular, 40 cm from the incisors. Biopsied. - 6 cm hiatal hernia. - Erythematous mucosa in the prepyloric region of the stomach. Biopsied. - Mucosal changes in the duodenum. Biopsied. Recommendation: - Patient has a contact number available for emergencies. The signs and symptoms of potential delayed complications were discussed with thepatient. Return to normal activities tomorrow. Written discharge instructions were provided to the patient. - Resume previous diet. - Continue present medications. - Await pathology results. - Perform a colonoscopy today. Procedure Code(s): - 70424, Esophagogastroduodenoscopy, flexible, transoral; with biopsy, single or multiple Diagnosis Code(s): - R10.13, Epigastric pain - R12, Heartburn - K22.89, Other specified disease of esophagus - K44.9, Diaphragmatic hernia without obstruction or gangrene - K31.89, Other diseases of stomach and duodenum CPT(R) - 2023 copyright [employer]. All RightsReserved. The CPT codes, CCI edits and ICD codes generated are intended assuggestions and were generated based on input data. These codes are preliminary andupon youth court judge review may be revised to meet current compliance and payer requirements. The provider is responsible for the final determination of appropriatecodes, and modifiers. Scope In Time: 10:25:21 AM Scope Out Time: 10:29:38 AM Scope Withdrawal Time: 00:03:10 Total Procedure Duration: 00:04:17 Dr. Yasir Ledesma This document has been electronically signed. Note Initiated:02/28/2024 Note Completed:02/28/2024 10:54 AM CC OTHER PROVIDER: PRIMARY CARE: OSWALDO MICHAEL MD Yasir Ledesma DO GI PROCEDURE ORDERABLES Final Re sult documented in this encounter Visit Diagnoses Not on filedocumented in this encounter Additional Health Concerns Infection Onset Date Last Indicated Resolved Time COVID-19 06/02/2025 06/02/2025 documented as of this encounter Care Teams Service Advisor Relationship Specialty Start Date End Date Oswaldo Michael DO [email or web address] PCP - General 07/04/17 05/26/25 Oswaldo Michael DO [address] [place] [address] [email or web address] PCP - General Internal Medicine 05/27/25 Yasir Ledesma DO [facility] [address] [place] [address] Gastroenterology 01/05/24 documented as of this encounter Additional Source Comments The information contained in this document represents components of the legal health record. It is not the complete legal health record.[facility]
--- OUTSIDE RECORDS SUMMARY | 2025-06-18 11:02 | XMS_ITS | Clinical Summary ---
Author Organization [facility] Address [address] [place] [address] Phone Care Team Providers Care Hob Mill Operator Name Role Phone Yasir Ledesma DO Unavailable Oswaldo Michael DO Primary Care Provider [phone] Allergies Active Allergy Reactions Criticality Noted Date Comments Amoxicillin-Pot Clavulanate Other (See Comments) High 09/26/2022 Dronedarone Other (See Comments) 05/29/2025 Metoprolol Other (See Comments) 05/29/2025 metoprolol Medications lisinopril-hyd roCHLOROthiazi de (PRINZIDE,ZEST ORETIC) 20-12.5 mg per tablet Take 1 tablet by mouth daily. 2 Active omeprazole (PRILOSEC) 20 MG capsule Take 1 capsule by mouth daily. Active multivitamin with minerals tablet Active atorvastatin (LIPITOR) 20 MG tablet Active lisinopril-hyd roCHLOROthiazi de (PRINZIDE,ZEST ORETIC) 20-12.5 mg per tablet Active dilTIAZem (CARDIZEM CD) 180 MG 24 hr capsule Take 180 mg by mouth daily. 4 Active folic acid (FOLVITE) 1 MG tablet Take 1,000 mcg by mouth daily. Active thiamine HCl (VITAMIN B-1 ORAL) Take by mouth. 1 qd Active valsartan (DIOVAN) 40 MG tablet Take 40 mg by mouth daily. 3 Active pyridoxine, vitamin B6, (B-6) 50 MG tablet Take 50 mg by mouth daily. 3 Active apixaban (ELIQUIS) 5 mg tablet Take 5 mg by mouth 2 (two) times a day. 3 Active flecainide (TAMBOCOR) 100 MG tablet Active furosemide (LASIX) 40 MG tablet Take 1 tablet by mouth daily. Active tamsulosin (FLOMAX) 0.4 mg Cap Take 1 capsule by mouth nightly at bedtime. Active LOPERAMIDE HCL (IMODIUM A-D ORAL) 06/02/20 25 Discontin ued(No longer taking) pantoprazole (PROTONIX) 40 MG tablet Take 1 tablet by mouth 2 (two) times a day. 4 06/02/20 25 Discontin ued(No longer taking) sod sulf-pot chloride-mag sulf (SUTAB) 1.479-0.188- 0.225 gram TabIndications :Special screening for malignant neoplasm of colon Take 1 kit by mouth as directed. Take 12 tablets at 5pm the night before procedure and 12 tablets 6 hours before procedure. PHARMACIST SEE COUPON: [place] [id number] [address] [id number] [place] [id number] 24 tablet 4 06/02/20 25 Discontin ued(No longer taking) dronedarone (MULTAQ) 400 mg tablet TAKE 1 TABLET BY MOUTH TWICE DAILY WITH MEAL/FOOD 06/02/20 25 Discontin ued(No longer taking) Hospital, Clinic, or Other Facility Administered Medication Ordered Dose Route Frequency Start Date End Date Status lidocaine (XYLOCAINE) 1% injection 2 mL 2 mL See Adm Inst Once 05/29/2025 5 Active BUPivacaine HCl (MARCAINE) 0.25% injection 2 mL 2 mL See Adm Inst Once 05/29/2025 5 Discontinued triamcinolone acetonide (KENALOG-40) 40 mg/mL injection 80 mg 80 mg See Adm Inst Once 05/29/2025 5 Discontinued Active Problems Problem Noted Date Diagnosed Date Hiatal hernia 02/28/2024 Duodenitis 02/28/2024 Hyperparathyroidism 12/04/2023 Edema of lower extremity 02/14/2023 Atrial fibrillation 02/10/2023 Diastasis recti 12/28/2022 Essential hypertension 10/18/2022 Impaired fasting glucose 04/08/2019 Hypercholesterolemia 04/08/2019 Allergic rhinitis 05/22/2018 Heart murmur 05/22/2018 Soto's esophagus 05/22/2018 Lyme disease 05/22/2018 Raised prostate specific antigen 05/22/2018 Encounters Date Type Department Care Team Description 06/02/2025 9:30 AM EDT Office Visit [facility] at [address] [address] Chiquis Evangelista CNP Acute cough (Primary Dx); Nasal congestion; COVID 05/29/2025 10:06 AM EDT - 05/29/2025 11:59 PM EDT Hospital Encounter [address] [address] Gurdeep Machuca PA-C Discharge Disposition: Home or Self Care 05/29/2025 10:00 AM EDT Office Visit [facility] Orthopedics & Sports Medicine [address] [place] [address] Gurdeep Machuca PA-C Left shoulder pain (Primary Dx) from Last 3 Months Immunizations No known immunizations Social History Tobacco Use Types Packs/Day Years Used Date Smoking Tobacco: Former Cigarettes Smokeless Tobacco: Never Tobacco Cessation:Counseling Given: Not Answered Education Answer Date Recorded Are you interested [...] on file Sexual Orientation Not on file Last Filed Vital Signs Vital Sign Reading Time Taken Comments Blood Pressure 128/80 06/02/2025 10:25 AM EDT Pulse 70 06/02/2025 10:25 AM EDT Temperature 36.8 C (98.3 F) 06/02/2025 10:25 AM EDT Respiratory Rate 16 06/02/2025 10:25 AM EDT Oxygen Saturation 98% 06/02/2025 10:25 AM EDT Inhaled Oxygen Concentration - - Weight 86.2 kg (190 lb) 01/16/2024 2:40 PM EDT Height 177.8 cm (5' 10 ) 01/16/2024 2:40 PM EDT Body Mass Index 27.26 01/16/2024 2:40 PM EDT Plan of Treatment Health Maintenance Due Date Last Done Comments CREATININE LEVEL 1950 LIPID PANEL 1950 POTASSIUM LEVEL 1950 DEPRESSION SCREENING 1963 SMOKING Hx and SMOKELESS TOBACCO SCREENING 1964 HEPATITIS C SCREENING 1969 COLOGUARD 1996 FIT TEST 1996 FOBT 1996 SIGMOIDOSCOPY 1996 VIRTUAL COLONOSCOPY 1996 PNEUMOCOCCAL VACCINES (50+ years) (1 of 1 - PCV) 2001 ZOSTER VACCINES (1 of 2) 2001 ABDOMINAL AORTIC ANEURYSM (AAA) SCREENING 2016 INFLUENZA VACCINE (#1) 2025 COVID-19 VACCINE ( - season) 2025 08/01/2022, 09/23/2021, 01/31/2021, Additional history exists BLOOD PRESSURE 11/30/2025 06/02/2025 RSV VACCINE (1 - 1-dose 75+ series) 2026 Adult Td,Tdap Booster 08/30/2031 08/30/2021 COLONOSCOPY 02/27/2034 02/28/2024 COLORECTAL CANCER SCREENING 02/27/2034 HEPATITIS A VACCINES Aged Out No long er eligible based on patient's age to complete this topic HIB VACCINES Aged Out No longer eligi ble based on patient's age to complete this topic MENINGOCOCCAL VACCINES (ACWY) Aged Out No longer eligible based on patient's age to complete this topic MENINGOCOCCAL VACCINES (B) Aged Out N o longer eligible based on patient's age to complete this topic Medical Devices Not on file Procedures Procedure Name Priority Date/Time Associated Diagnosis Comments POCT COVID-19 RT-PCR/INFLUENZA A & B/RSV CEPHEID Routine 06/02/2025 10:22 AM EDT XR SHOULDER 2 VIEWS (LEFT) Routine 05/29/2025 10:12 AM EDT Left shoulder pain ENDOSCOPY, COLON 02/28/2024 10:2 6 AM EDT from Last 3 Months or Most Recently Relevant to Health Maintenance Results * (ABNORMAL) POCT COVID-19 RT-PCR/Influenza A & B/RSV (Cepheid) (06/02/2025 10:22 AM EDT) [facility] RSV PCR Negative Negative [facility] SARS-CoV-2 (COVID-19) Positive(A) Negative [facility] POC Influenza A PCR Negative Negative [facility] Influenza B PCR Negative Negative [facility] 06/02/2025 10:2 2 AM EDT 06/02/2025 11:03 AM EDT us Chiquis Evangelista TERRAZZO MECHANIC POINT OF CARE TEST ORDERABL ES Final Result [facility] [place] [address], [facility] [phone] * XR SHOULDER 2 VIEWS (LEFT) (05/29/2025 10:12 AM EDT) Narrative SYSTEMGENERATED, DOCUMENTATION - 05/29/2025 10:13 AM EDT This image report has been auto-finalized and has not been read by a Radiologist. Interpretation has been included in the provider encounter note for this date of service. us Gurdeep Machuca PA-C IMG XR UPPER EXTREMITY Final Result * ENDOSCOPY, COLON (02/28/2024 10:26 AM EDT) 02/28/2024 10:2 6 AM EDT Narrative Procedure Note Yasir Ledesma, DO - 02/28/2024 10:26 AM EDT [facility] Patient: Farhat Brock : 1950 Account: [...] the bowel preparation was evaluated using the BBPS(Seneca Bowel Preparation Scale) with scores of: Right [...] are reviewed for surveillance. Procedure Code(s): - 35219, Colonoscopy, flexible; with biopsy, single or multiple Diagnosis Code(s): - Z12.11, Encounter for screening for malignant neoplasm of colon - N40.0, Benign prostatic hyperplasia without lower urinary tractsymptoms - D12.0, Benign neoplasm of cecum - K64.8, Other hemorrhoids CPT(R) - 2023 copyright [employer]. All RightsReserved. The CPT codes, CCI edits and ICD codes generated are intended assuggestions and were generated based on input data. These codes are preliminary andupon computer lab para professional review may be revised to meet current [...] DO GI PROCEDURE ORDERABLES Final Re sult from Last 3 Months or Most Recently Relevant to Health Maintenance Additional Health Concerns Infection Onset Date Last Indicated COVID-19 06/02/2025 06/02/2025 Insurance MEDICARE PART A & B [place]UE RE[place]ACEMENT [facility] MEDICARE PART A & B [facility] MEDIC[facility] PPO BLUE REPLACEMENT [facility] MEDICARE PART A & B [facility] MEDICARE PPO BLUE REPLACEMENT MEDICARE PART A & B [place] MEDICARE PART A & B [facility] MEDICARE PPO BLUE REPLACEMENT Member Subscriber Plan / Payer (Ef fective 2016-Present) Name:Farhat Brock Relation to Subscriber:Self Name:Farhat Brock Payer ID:[id number] (NAIC) Type:Medicare Address[address] A & B [facility] MEDICARE PPO BLUE REPLACEMENT [place] PART A [place] RE[place] [facility] MEDICARE PART A & B [facility] MEDICARE PPO BLUE REPLACEMENT [facility] MEDIC[facility] PPO BLUE [facility]PLACEMENT [facility] A & [place]AC[place] Care Teams Hob Mill Operator Relationship Specialty Start Date End Date Oswaldo Michael DO [address] [place] [address] [email or web address] PCP - General Internal Medicine 05/27/25 Yasir Ledesma DO [address] [place] [address] (work) Gastroenterology 01/05/24 Additional Source Comments The information contained in this document represents components of the legal health record. It is not the complete legal health record.[facility]
== END ==
LOC: HO.CARD 09:56
PROVIDERS: PCP Internal Medicine; Visit Provider Internal Medicine Cardiovascular Disease
DX: I35.0 Nonrheumatic aortic (valve) stenosis (principal)
CPT/HCPCS: 93306

== ENCOUNTER → 2025-06-18 09:58 | Outpatient (BNV) | payer MEDICARE, MEDICAID, SELFPAY | PROVIDERS: PCP Internal Medicine; Visit Provider Internal Medicine | DX: I42.2 Other hypertrophic cardiomyopathy (principal); I35.0 Nonrheumatic aortic (valve) stenosis | CPT/HCPCS: 93306 ==

== ENCOUNTER 2025-07-10 13:32 | Outpatient (AMB) | payer MEDICARE, SELFPAY ==
--- OUTSIDE RECORDS SUMMARY | 2025-07-03 09:50 | XMS_ITS | Encounter Summary ---
Author Organization [facility] Address [address] [place] [phone] Phone Care Team Providers Care Veterinary Surgery Technologist Name Role Phone Yasir Ledesma DO Unavailable Jeffrey Gleason DO Primary Care Provider [phone] Reason for Visit * Reason Comments Foreign Body in Skin Right foot Encounter Details Date Type Department Care Team (Late st Contact Info) Description 07/03/2025 9:50 AM EDT Office Visit [facility] at [address] [address] Faye Mccoy, [address] [address] [email or web address] Marquis walter (Primary Dx) Social History Tobacco Use Types [...] on file documented as of this encounter Last Filed Vital Signs Vital Sign Reading Time Taken Comments Blood Pressure 147/81 07/03/2025 9:56 AM EDT Pulse 91 07/03/2025 9:56 AM EDT Temperature 36.3 C (97.4 F) 07/03/2025 9:56 AM EDT Respiratory Rate 16 07/03/2025 9:56 AM EDT Oxygen Saturation 99% 07/03/2025 9:56 AM EDT Inhaled Oxygen Concentration - - Weight 85.3 kg (188 lb) 07/03/2025 9:56 AM EDT Height 177.8 cm (5' 10 ) 07/03/2025 9:56 AM EDT Body Mass Index 26.98 07/03/2025 9:56 AM EDT documented in this encounter Patient Instructions * Patient Instructions* Faye Mccoy FNP - 07/03/2025 9:50 AM EDT ANY OTC WART REMOVAL MEDICATIONS. DUCT TAPE: APPLY PIECE OF DUCT TAPE OVER AREA OR WART. ONCE EVERY 3-5 DAYS, REMOVE DUCT TAPE AND SOAK IN WARM WATER THEN USE EMERY BOARD OR PUMICE STONE. REPLACE DUCT TAPE AFTER 10-12 HRS AIR EXPOSURE FOLLOW UP HEAVY MOBILE EQUIPMENT OPERATOR NEEDED * Attachments The following attachments cannot be sent through Care Everywhere. * Plantar Warts (German) documented in this encounter Progress Notes * Faye Mccoy FNP - 07/03/2025 9:50 AM EDT Images from the original note were not included. Subjective: Patient ID: Farhat Brock is a 75 y.o. male. Pt states he thinks he has a sliver in his right foot for a couple months. States getting it checked because he is sick of it. No injury or event with suspicion of sliver. Review of Systems Constitutional: Negative for fatigue and fever. HENT: Negative for congestion, ear pain and sore throat. Eyes: Negative for pain. Respiratory: Negative for cough and shortness of breath. Cardiovascular: Negative for chest pain. Gastrointestinal: Negative for abdominal pain, constipation, diarrhea, nausea and vomiting. Genitourinary: Negative for dysuria and flank pain. Neurological: Negative for dizziness, light-headedness and headaches. Hematological: Negative for adenopathy. All other systems reviewed and are negative. Skin: Positive for wound (right foot). Negative for color change. Musculoskeletal: Negative for joint pain, back pain and neck pain. Vitals: 07/03/25 0956 BP: (!) 147/81 BP Location: Left arm Pulse: 91 Resp: 16 Temp: 36.3 ??C (97.4 ??F) TempSrc: Temporal SpO2: 99% Weight: 85.3 kg (188 lb) Height: 177.8 cm (5' 10 ) Objective: Physical Exam Vitals and nursing note reviewed. Constitutional: General: He is not in acute distress. Appearance: Normal appearance. He is not ill-appearing, toxic-appearing or diaphoretic. HENT: Head: Normocephalic and atraumatic. Nose: Nose normal. Mouth/Throat: Mouth: Mucous membranes are moist. Pharynx: Oropharynx is clear. Eyes: Extraocular Movements: Extraocular movements intact. Conjunctiva/sclera: Conjunctivae normal. Pupils: Pupils are equal, round, and reactive to light. Cardiovascular: Rate and Rhythm: Normal rate and regular rhythm. Pulses: Normal pulses. Heart sounds: Normal heart sounds. Pulmonary: Effort: Pulmonary effort is normal. Breath sounds: Normal breath sounds. Abdominal: General: Abdomen is flat. Musculoskeletal: General: Normal range of motion. Cervical back: Normal range of motion and neck supple. Skin: General: Skin is warm and dry. Comments: Small Plantar wart ball of right foot Neurological: General: No focal deficit present. Mental Status: He is alert and oriented to person, place, and time. Mental status is at baseline. Psychiatric: Mood and Affect: Mood normal. Behavior: Behavior normal. Thought Content: Thought content normal. Judgment: Judgment normal. No results found for this visit on 07/03/25. Procedure: Procedures Assessment/Plan: Diagnosis Plan 1. Plantar wart Assessment and Plan: Pt with concern for fb sole of right foot. No known injury. Has been going on for months. Area of concern with a plantar wart. Discussed and agreed on pharm and non pharm plan of care. Advised on otc remedies Butter Maker as needed. * Jose Lebron MD - 07/03/2025 9:50 AM EDT Subject Line: Provider Attestation I have reviewed the notes, assessments, and/or procedures performed by YOGI Mccurdy, I concur with her/his documentation of Farhat Brock. documented in this encounter Plan of Treatment Upcoming Encounters Date Type Department Care Team (Late st Contact Info) Description 07/15/2025 11:20 AM EDT Office Visit [facility] Orthopedics & Sports Medicine [address] [place] [address] [place] [address] Jeffrey Sims PA-C [address] [place] [address] [place] [address] [email or web address] documented as of this encounter Visit Diagnoses Diagnosis Plantar wart- Primary documented in this encounter Care Teams Veterinary Surgery Technologist Relationship Specialty Start Date End Date Jeffrey Gleason DO [address] [facility] [place] [address] PCP - General Internal Medicine 05/27/25 Yasir Ledesma DO [address] [place] [address] Gastroenterology 01/05/24 documented as of this encounter Additional Source Comments The information contained in this document represents components of the legal health record. It is not the complete legal health record.[facility]
--- NOTE | 2025-07-10 13:34 | MHC.OFFVIS ---
Vital Signs 07/10/25 13:35 Height 5 ft 10 in Weight 185 lb 3.013 oz BMI 26.6 BP 110/70 Blood Pressure Location Lt brachial Position Sitting Pulse 95 Intake Visit Reasons: 7m follow up/echo/US Intake Note: 7 month follow-up after echo and u/s feeling good Straight Line Edger Required: No Allergies amoxicillin (Augmentin) Allergy (Unknown, Verified 05/07/24 09:39) Hives clavulanic acid (Augmentin) Allergy (Unknown, Verified 05/07/24 09:39) Itchy Eyes tamsulosin Allergy (Verified 05/15/24 11:36) Blister amiodarone Adverse Reaction (Unknown, Verified 05/15/24 11:37) Unknown Medication List - Last Reconciled 07/10/25 by Naun Smith MD apixaban (Eliquis) 5 mg PO BID diltiazem HCl CD 180 mg PO DAILY folic acid 1 mg PO DAILY valsartan 20 mg PO BID [Vitamin B-1 DAILY] [Vitamin B-6 DAILY] HPI Comments Details: Farhat comes for follow-up. Said he is remaining very active and chopping wood and [place] in [place]. He does not have any worsening symptoms of shortness of breath. Denies any orthopnea, PND. His heart rate has been well controlled he denies any prolonged fast heart rate or palpitations. Denies any lightheadedness, syncope. Recent echocardiogram shows low normal LVEF of 50-55% with moderate aortic stenosis. He denies any orthopnea, PND, leg edema. No bleeding issues or neurologic events but wondering about Watchman device as he said he is very active and does a lot of work with the hand and gets bruise easily [facility] Medical History Paroxysmal atrial flutter Cardiomyopathy History of cardioversion GERD (gastroesophageal reflux disease) Surgical History Hx of prior ablation treatment Hx of inguinal hernia repair Social History Alcohol intake: former Patient Tobacco Use Status: Former Tobacco user Substance Use Type: Marijuana Review of Systems Const Denies chills, Denies fatigue, Denies fever(s), Denies frequent falls, Denies weakness, Denies weight gain and Denies weight loss ENT Denies dizziness Card Denies chest pain, Denies leg edema, Denies lightheadedness, Denies palpitations, Denies dyspnea, Denies dyspnea on exertion, Denies orthopnea and Denies other (loss of consciousness) Resp Denies cough, Denies dyspnea and Denies dyspnea on exertion GI Denies hematochezia and Denies change in stool character Musc Denies abnormal gait, Denies muscle weakness, Denies numbness, Denies radiating pain into limb and Denies tingling Neuro Denies abnormal gait, Denies dizziness, Denies frequent falls, Denies numbness, Denies tingling and Denies weakness Endo Denies fatigue and Denies palpitations Physical Exam Vital Signs: Last Vital Signs Pulse 95 07/10/25 13:35 BP 110/70 07/10/25 13:35 BMI result Body Mass Index 26.6 Const General: cooperative, healthy appearing, comfortable and no acute distress Orientation/consciousness: patient oriented x3 Neck Neck: Yes normal visual inspection and Yes no JVD Resp Effort & Inspection: normal respiratory effort Auscultation: clear to auscultation bilaterally, no crackles, no rales, no rhonchi and no wheezes Cardio Jugular venous distension: no JVD Rate: regular rate Rhythm: abnormal rhythm irregularly irregular Heart sounds: S1 normal heart sound present, S2 normal heart sound present, no gallops, Murmur heart sound present systolic mid and no rubs Skin General skin exam: no rashes or lesions noted Neuro General: patient oriented x3 Extrem General: Yes normal to inspection, No no pedal edema and No calf tenderness Psych Appearance: grossly normal Mental Status: mental status grossly normal Speech and movement: Normal speech and movement present Office Procedures EKG Details: EKG shows atrial fibrillation at 82 beats per minute [id number], Complete Assessment & Plan Assessment & Plan (1) Persistent atrial fibrillation: Code(s): I48.19 - Other persistent atrial fibrillation Category: Medical Plan: Persistent chronic atrial fibrillation, currently rate controlled on Cardizem therapy. Doing well. Has failed rhythm control approach and has had no change in his symptoms with persistent atrial fibrillation with no signs of heart failure. correction outcome with persistent atrial fibrillation with development of heart failure syndrome was discussed. Understands. Continue monitor clinically. Continue full oral anticoagulation, currently on apixaban 5 mg b.i.d.. Semi annual renal function test should be pursued. (2) Aortic stenosis: Code(s): I35.0 - Nonrheumatic aortic (valve) stenosis Category: Medical Plan: Aortic stenosis which is moderate by echocardiogram. No interventions required at this time. Continue Eliquis therapy as above. Continue aggressive risk factor modification. Goal LDL less than 100 mg/dL. Follow-up echocardiogram next year. Cardinal symptoms of aortic stenosis were discussed with him. (3) History of cardiomyopathy: Comment: Improved with rate control Code(s): Z86.79 - Personal history of other diseases of the circulatory system Category: Medical Plan: Prior history of cardiomyopathy with low normal LV EF improved after rate control. Continue aggressive rate control approach. Continue current Cardizem therapy. Follow-up echocardiogram in 6 months time. Avoidance of cardiotoxic agents was discussed. Continue neurohormonal modulation with valsartan. Signs and symptoms of heart failure were discussed. Follow up in the clinic in 1 year's time, sooner PRN. Thank you for allowing me to partake in his care Orders: Orders Basic Metabolic Panel Today I48.19 - Other persistent atrial fibrillation CA echo transthoracic complete 1 Year I35.0 - Nonrheumatic aortic (valve) stenosis Coding Level of Care Code Est Pt Level 4 (18836) Complex EM visit Add On G2211 Diagnoses Persistent atrial fibrillation I48.19 Aortic stenosis I35.0 History of cardiomyopathy Z86.79 CPT Codes EKG - CPT: 31716-[id number], Complete ([id number])
[2025-07-10 13:35] VITALS: BP 110/70; PULSE 95; BMI 26.6
--- OUTSIDE RECORDS SUMMARY | 2025-07-10 17:11 | XMS_ITS | Encounter Summary ---
Author Organization [facility] Address [address] [place] [address] Phone Care Team Providers Care Manager Of Procurement Name Role Phone Jeffrey Gleason DO Primary Care Provider [phone] Yasir Ledesma DO Unavailable Jeffrey Gleason DO Primary Care Provider [phone] Encounter Details Date Type Department Care Team (Late st Contact Info) Description 06/04/2024 Transcribe Orders [facility] [address] [place] [address] Jeffrey Gleason DO [address] [place], [place] [id number] Special screening for malignant neoplasm of prostate [...] as of this encounter Plan of Treatment Upcoming Encounters Date Type Department Care Team (Late st Contact Info) Description 07/15/2025 11:20 AM EDT Office Visit [facility] [address] [place] [address] [place] [address] Jeffrey Sims PA-C [address] [place] [address] [place] [address] [email or web address] documented as of this encounter Results * (ABNORMAL) PSA, free and total (06/04/2024 9:26 AM EDT) PSA, TOTAL 14.0(H) <=6.5 ng/mL [facility] [address] [place] FREE PSA 1.8 ng/mL [facility] FREE/TOT PSA RATIO SEE NOTE ratio [facility] Comment: (NOTE) Ratio not calculated because clinical usefulness is not defined except in range of total PSA 4.0-10.0 ng/mL. ADDITIONAL INFORMATION The testing method is an electrochemiluminescence assay manufactured by [employer] and performed on the Modular or Lexa system. Values obtained with different assay methods or kits may be different and cannot be used interchangeably. Test results cannot be interpreted as absolute evidence for the presence or absence of malignant disease. Blood 06/04/2024 9:26 AM EDT 06/04/2024 9:30 AM EDT Jeffrey Gleason DO LAB BLOOD ORDERABLES Final Resul t [facility] [address] [place] [address] documented in this encounter Visit Diagnoses Diagnosis Special screening for malignant neoplasm of prostate- Primary documented in this encounter Additional Health Concerns Infection Onset Date Last Indicated Resolved Time COVID-19 06/02/2025 06/02/2025 06/23/2025 1:21 AM EDT documented as of this encounter Care Teams Manager Of Procurement Relationship Specialty Start Date End Date Jeffrey Gleason DO PCP - General 07/04/17 05/26/25 Jeffrey Gleason DO [address] [place] [address] PCP - General Internal Medicine 05/27/25 Yasir Ledesma DO [address] [place] [address] Gastroenterology 01/05/24 documented as of this encounter Additional Source Comments The information contained in this document represents components of the legal health record. It is not the complete legal health record.[facility]
--- OUTSIDE RECORDS SUMMARY | 2025-07-10 17:11 | XMS_ITS | Data Portability ---
Author Organization [facility], Telehealth Patient Home Address [address] [place] [address] Assessment Encounter Date Assessment Date Assessment LastModified by Organization Details LastModified Time 11/20/2023 11/20/2023 Patient agreed and verbally consents to this audio and video Telehealth appt via a secure platform [email or web address] Not available 11/20/2023 14:24:38 Plan of Treatment Reminders Order Date Submit Date Provider Last Modified By Organization Details Last Modified Time Details Appointments FOLLOW UP 15 2025 10:45A YOANA MONTANA Not available Not available Not available Lab CMP, serum or plasma 2023 024 [facility], [address] [place] [address], [id number], 01/22/2024 14:19:39 hemoglobi n A1c, QN, blood 2023 024 [facility], [address] [place] [address], [id number], 01/22/2024 14:19:39 CBC w/ auto diff 2023 024 [facility], [address] [place] [address], [id number], 01/22/2024 14:19:39 lipid panel, blood 2023 024 [facility], [address] [place] [address], [address], 01/22/2024 14:19:39 CMP, serum or plasma 2023 024 [facility], [address] [place] [address], [id number], 11/30/2023 11:26:16 hemoglobi n A1c, QN, blood 2023 [facility], [address] [place] [address], [id number], 11/20/2023 14:29:22 CBC w/ auto diff 2023 [facility], [address] [place] [address], [id number], 11/20/2023 14:29:22 lipid panel, blood 2023 [facility], [address] [place] [address], [id number], 11/30/2023 11:26:16 PSA, serum or plasma 2023 024 [facility], [address] [place] [address], [address], 11/20/2023 14:29:22 amylase + lipase, serum 2023 [facility], [address] [place] [address], [id number], 11/20/2023 14:29:22 gamma-glu tamyl transfera se (ggt), serum 2023 [facility], [address] [place] [address], [address], 11/20/2023 14:29:22 PTH (parathyr oid hormone), intact + calcium, serum or plasma 2023 [facility], [address] [place] [address], [id number], 11/20/2023 14:29:22 TSH + free T4, serum 2023 024 SHIRAP[facility], [address] [facility], [place], [address], 11/20/2023 14:29:22 Referral orthopedi c surgeon referral 2024 025 genny Charltontrinidad Tyson Ms, [address] , [place], [address], 12/10/2024 09:10:46 general surgeon referral 2023 024 genny Cohn MD, [address], [place], [address], 01/24/2024 09:07:25 gastroent erologist referral 2023 024 lydia Ledesma, [address] [facility] [address], [place], [address], 01/09/2024 09:18:57 Procedures None recorded. Surgeries None recorded. Imaging None recorded. Medication Orders None recorded. Patient TargetsNo targets recorded. Patient InstructionsNo instructions recorded. Reason for Referral Water Resources Technical Officer Referral for Hiatal hernia with gastroesophageal reflux [...] Abnormal Flag Note LastModifiedBy Organization Detail LastModifiedTime 12/19/1912/12/2023 , mervat hughes No observ ation record ed. [email or web address] [facility] Central Scheduling [address] [facility], [place], [address], 12/20/2023 09:27:30 Result Notes None recorded. Problems Name Problem SNOMED Code Status Onset Date Resolution Date Notes Provider Name and Address Organization Details Recorded Time Impaired fasting glycemia 816209023 Completed 201705/22/2018December REJI Dinh [address] [place] [address], [address], [facility] 9 10:15:00 Allergic rhinitis 23849148 Active 2017 Esther taveras [facility] 8 08:27:26 Hyperten sive disorder 99880562 Active 2017 Esther taveras [facility] 8 08:27:29 Hypergly cemia 61816871 Active 2017 Esther taveras [facility] 8 08:27:34 Osteoma Active 2017 Esther taveras [facility] 8 08:27:49 Degenera tion of interver tebral disc 79208483 Active 2017 Esther taveras [facility] 8 08:28:03 Lyme disease 30435841 Active 2017 Esther taveras [facility] 8 08:28:09 Heart murmur 70339838 Active 2017 Esther taveras [facility] 8 08:28:17 Loza' s esophagu s 219577200 Active 2017 Esther taveras [facility] 8 08:28:24 Ulcer of esophagu s 25958614 Active 2017 Esther taveras [facility] 8 08:28:39 Prostate specific antigen above referenc e range 719485072 Active 2017 Esther taveras [facility] 8 08:28:47 Fracture of vertebra l column 04406613 Active 2017 Esther taveras [facility] 8 08:29:03 Abdomina l aortic aneurysm screenin g Active 2017 negative 2017 Esther Sylvester [facility] 8 08:29:23 Hypercho lesterol emia 54138109 [facility] [address] [place], [address], [facility] 9 10:14:30 Impaired fasting glycemia 784825972 Active 2018 Martina Allegra [facility] [address] [place], [address], [facility] 9 10:15:00 Atrial paroxysm al tachycar wyatt 020628054 Active 2022 YOANA DE PAZ [address] [place] [address], [address], [facility] 5 11:50:07 Hiatal hernia with gastroes ophageal reflux 547544800 Active 2022 YOANA DE PAZ [address] [place] [address], [address], [facility] 3 10:43:59 Diastasi s of muscle 971056820 Active 2022 YOANA DE PAZ [address] [place] [address], [address], [facility] 3 10:54:50 Syncope 733793115 Active 2022 YOANA DE PAZ [address] [place] [address], [address], [facility] 3 15:34:43 Paroxysm al atrial flutter 060520653 Active 2022 YOANA DE PAZ [address] [place] [address], [address], [facility] 3 10:28:39 Atrial fibrilla tion 60254769 Active 2022 YOANA DE PAZ [address] [place] [address], [address], [facility] 3 11:42:01 Edema of lower extremit y 728584219 Active 2022 YOANA DE PAZ [address] [place], [address], [facility] 3 13:24:27 Constipa tion 94536325 Active 2023 YOANA DE PAZ [address] [place], [address], [facility] 4 14:24:04 Hyperpar athyroid ism 19371385 Active 2023 YOANA DE PAZ [address] [place], [address], [facility] 4 08:43:16 Diastasi s recti 87323165 Active 2023 YOANA DE PAZ [address] [place], [address], [facility] 4 14:16:12 Acute tear of medial meniscus of right knee 4512681866 8597557 Active 2024 YOANA DE PAZ [address] [place] [address], [address], [facility] 5 10:33:25 Typical atrial flutter 481177563 Active 2024 YOANA DE PAZ [address] [place], [address], [facility] 5 11:50:29 Problem Notes None recorded. Procedures Surgical History Date Name Laterality Status Provider Name and Address Organization Details Recorded Time 4 Colonoscopy completed Ney Gleason [facility] 02/28/2024 11:57:51 6 Colonoscopy completed Samina Huff [facility] 02/06/2019 14:09:27 hernia repair completed Samina Huff [facility] 02/06/2019 14:10:22 Imaging Results None recorded. Procedure Notes None recorded. Medical Equipment None Reported. Allergies Allergen ID Allergen Name Allergen Category Reaction Reaction Severity Criticality Documentation Date Start Date Code Code System Note Provider Name and Address Organization Details Recorded Time 2212 Augmentin medicatio n Not available Not available Not available 05/22/2018 52767 2 RxNorm [facility] 8 08:27:20 6810 metoprolo l Not available Not available Not available Not available 02/07/2023 6918 RxNorm dizzi ness and facia l swell YOANA Pink [address] [place], [address], [facility] 3 10:31:27 8851 Multaq medicatio n Not available Not available Not available 12/03/2024 49602 9 RxNorm YOANA DE PAZ [address] [place], [address], [facility] 5 10:31:54 Medications Name Sig Start Date [...] TAKE 1 CAPSULE BY MOUTH EVERY DAY 2024 active Not Available Not Available Not Avai lable amiodarone 200 mg tablet Take 1 tablet [...] Not Available valsartan 40 mg tablet TAKE ONE-HALF TABLET BY MOUTH TWICE DAILY active Not Available Not Available No t Available furosemide 02/07 completed Not Available Not Available Not Available multivitami n qd 02/28 completed Not Available Not Available Not Available Chelated Minerals 100mg once per day for [facility] 12/28 completed Not Available Not Available [...] in Arterial blood by Pulse oximetry Systolic And Diastolic Provider Name and Address Organization Details Last Updated DateTime 5 181.61 cm 27.2 kg/m2 29275.2 9 g 78 /min 99 % 99 % 128/78 mm[Hg] Neal Garcia [facility] 5 10:23:19 Date Recorded Body height Body mass index (BMI) Body weight Heart rate Oxygen saturation Oxygen saturation in Arterial blood by Pulse oximetry Systolic And Diastolic Provider Name and Address Organization Details Last Updated DateTime 4 181.61 cm 27.1 kg/m2 73010.7 7 g 81 /min 96 % 96 % 124/84 mm[Hg] Kirsty Bess [facility] 4 13:59:12 Date Recorded Body height Body mass index (BMI) Body weight Heart rate Oxygen saturation Oxygen saturation in Arterial blood by Pulse oximetry Systolic And Diastolic Provider Name and Address Organization Details Last Updated DateTime 5 181.61 cm 25.3 kg/m2 94127.0 7 g 71 /min 96 % 96 % 120/78 mm[Hg] Kirstyblaire Bess [facility] 5 11:30:11 Date Recorded Body height Body mass index (BMI) Body weight Heart rate Oxygen saturation Oxygen saturation in Arterial blood by Pulse oximetry Systolic And Diastolic Provider Name and Address Organization Details Last Updated DateTime 4 181.61 cm 26.4 kg/m2 38730.0 9 g 72 /min 98 % 98 % 122/76 mm[Hg] Neal Garcia [facility] 4 15:56:30 Social History Question Answer Notes LastModified by Organizat ion Details LastModified Time Tobacco Smoking Status Former Smoker Not Available [facility]/21/2020 03:36:23 Which Illicit Or Recreational Drugs Have You Used? Marijuana Not Very Often Information not available 01/22/2024 What Was The Date Of Your Most Recent Tobacco Screening? 04/02/2025 Information not available 04/02/2025 Sex: Unknown Functional Status Question Answer Note LastModified by Organization D etails LastModified Time Do you or have you ever used any other forms of tobacco or nicotine? No Information not available 12/28/2022 Mental Status None recorded. Family History Nothing Reported. Medical History No medical history recorded. Immunizations Vaccine Type Date Status Note Provider Kingsley e and Address Organization Details Recorded Time COVID-19, mRNA, LNP-S, PF, 30 mcg/0.3 mL dose 01/10/2021 completed Not Available Pending sale to [facility] 3 14:09:25 COVID-19, mRNA, LNP-S, PF, 30 mcg/0.3 mL dose 01/31/2021 completed Not Available [facility] 3 14:09:25 Tdap 08/30/2021 completed Not Available Pending sale to [facility] 10/18/2022 14:09:25 Past Encounters Encounter ID Performer Location Encounter Start Date Encounter Closed Date Diagnosis/Indication Diagnosis SNOMED-CT Code Diagnosis ICD10 Code Diagnosis IMO Codes Diagnosis Note [id number] Jeffrey Gleason [facility] [address] [place] [address], [place] [address] 02/08/2019 11:51:42 02/08/2019 12:14:57 Essential hypertension 53435336 I10 well controlled Adult [facility] th examination 446008717 Z00.00 Gastroesop hageal reflux disease 906034758 K21.9 has - recommend continue omeprazole [id number] Jeffrey Gleason [facility] [address] [place] [address], [place] [address] 06/03/2019 15:28:22 06/03/2019 16:05:53 Adult health examination 565748957 Z00.01 doing well overall states is feeling well and his physical exam shows he is above average Active or passive immunization 642158463 Z23 [facility] flu [id number] Jeffrey Gleason [facility] [address] [place] [address], [place] [address] 10/28/2019 16:18:26 10/28/2019 16:56:54 Spinal stenosis of lumbar region 38199352 M48.061 Moderate to severe - would like to see surgeon Multiple renal cysts 253 472366 N28.1 Found on MRI of lumbar spine Likely benign [id number] Jeffrey Gleason [facility] [address] [place] [address],[place] [facility] [place] [address] 03/31/2020 09:13:35 03/31/2020 10:16:11 Impaired fasting glycemia 494860491 R73.01 Will need to recheck A1C Diet has been good will set up annual CPE Hypercholesterolemia 136 69378 E78.00 Need to recheck next visit Hypertensive disorder 38 273834 I10 BP well controlled on current meds Loza's esophagus 3029 40345 K22.70 Has been well controlled [id number] Jeffrey Gleason [facility] [address] [facility] [place] [address] 06/15/2020 16:02:34 06/15/2020 16:49:22 Adult health examination 978726182 Z00.00 will check BW BP is good today Screening for cardiovascular system disease 531195644 Z13.6 will check BW Ganglion c yst of right hand 5492323305 29484 M67.441 will have him see specialist [id number] Jeffrey Gleason [facility] [address] [facility] [facility] [place] [address] 08/23/2021 11:57:50 08/23/2021 14:37:19 Impaired fasting glycemia 060275437 R73.01 Will need to recheck A1C Diet has been good Hypertensive disorder 38 621973 I10 BP well controlled on current meds Hypercholesterolemia 136 52742 E78.00 Need to recheck next visit Hyperglycemia 90015649 R 73.9 we will need some lab [id number] Jeffrey Gleason DO [facility] [address] [facility] [place] [address] 02/28/2022 13:51:59 02/28/2022 14:27:24 Advance care planning 398018630 Z71.89 done Active or passive immunization 749753313 Z23 patient advised he is due for both pneumonia vaccines - He refuses vaccines at this time Hypertensive disorder 38 824504 I10 BP well controlled on current meds Hypercholesterolemia 136 30165 E78.00 Need to recheck next visit [id number] Jeffrey Gleason [facility] [address] [facility] [place] [address] 12/28/2022 10:12:19 12/28/2022 14:01:28 Hiatal hernia with gastroesophageal reflux 668089144 K21.9 start on famotidine (with prilosec) as neededstar t on dicyclomin e (with above) as neededpati ent needs fu with GI for another a scope Diastasis of muscle 1112 36867 M62.08 patient needs eval of his diastasis recuts abdominisv medina significan t separation of muscleunli tammie PT would be effective at this point [id number] Jeffrey Gleason DO [facility] [address] [facility] [address] 02/07/2023 09:56:09 02/07/2023 10:46:55 Paroxysmal atrial flutter 635609572 I48.3 poor effects with the metoprolol (drowsy and possible facial swelling)a greed to switch diltiazem Long-term current use of amiodarone 0189138307 96311 Z79.899 discussed side effects of the amiodarone not mentioned at the ERwill need to monitor his levelsdoes n't have a cardio f/u until he starts developing problems with his thyroid I would most likely d/c the medication [id number] Jeffrey Gleason DO [facility] [address] [facility] [address] 11/20/2023 10:07:36 11/20/2023 14:42:25 Atrial fibrillation 67229251 I48.0 stable per patient Hiatal her syed with gastroesophageal reflux 872221127 K21.9 agreed to second opinion Impaired f asting glycemia 227892340 R73.01 will set up with lab workhe is due for it Constipation 54437411 K5 9.00 will set up with lab work see if additional causes for the constipati on Prostate s pecific antigen above reference range 649329352 R97.20 will set up with screening PSA as well Paroxysmal atrial flutter 408496202 I48.3 doing good, has fu with cardio with sleep study and with holter [id number] Jeffrey Gleason DO [facility] [address] [facility] [address] 01/22/2024 13:49:50 01/22/2024 14:57:52 Depression screening 114769708 Z13.31 stable Diastasis recti 85911610 M62.08 agreed to gen surg referral to flip Hyperparathyroidism 6699 9008 E21.0 sees endo Hypertensive disorder 38 216916 I10 stable Impaired f asting glycemia 514440404 R73.01 will set up with lab workhe is due for it [id number] Jeffrey Gleason [facility] [address] [facility],[place] [address] 04/10/2024 15:50:28 04/10/2024 16:29:28 Renewal of prescription 621652467 Z76.0 stable Atrial fibrillation 4943 6004 I48.0 stable feels good Diastasis recti 56067261 M62.08 doing well, working on posture Loza's esophagus 3029 13146 K22.70 stable per last endoscope Hiatal her syed with gastroesophageal reflux 704606851 K21.9 [id number] Jeffrey Gleason [facility] [address] [facility],[place] [address] 12/03/2024 10:15:35 12/03/2024 11:29:10 Acute tear of medial meniscus of right knee 3072637662 8395762 S83.241A agreed to ortho referral [id number] Jeffrey Gleason [facility] [address] [facility],[place] [address] 04/02/2025 11:10:05 04/02/2025 12:56:38 Depression screening 364390025 Z13.31 stable Atrial fibrillation 4943 6004 I48.0 stable feels good Typical at [facility] 386163404 I48.3 [id number] has cardio in [facility] discuss watchman at that appt Hiatal her syed with gastroesophageal reflux 877476855 K21.9 Diastasis recti 59373892 M62.08 doing well, working on posture Health Concerns Section Related Observation LastModified by Organization Detai ls LastModified Time None Recorded Concern Status LastModified by Organization Details LastModified Time None Recorded Advance Directives Directive None Recorded Payers Insurance Date Sequence Insurance Name Policy Number Policy Garcia Covered Member ID Garcia Member ID Guarantor Name 12/03/2024 1 [place] [employer] Farhat Brock [id number] Farhat Brock 04/02/2025 1 [place]ARE [place]EMENT PPO) [id number] Farhat Brock [id number] Farhat Brock 04/02/2025 2 [place] [facility] Farhat Brock [id number] Farhat Brock Notes Date Note Type Note Provider Name and Address Organization Details Recorded Time 4 text/html ROS as noted in the HPI f/u cardio The patient is participating in this appointment via telemedicine communication with a phone call/video calling service (Doxy)The patient consents to use of these platforms [...] and holter monitor YOANA DE PAZ [address] [place], [address], [facility] 11/20/2023 14:31:04 4 text/html ROS as noted in the HPI f/u surgeon office the patient is doing okaythe patient reports that he had a cardioversion with his cardiodoing well the patient reports that he saw Dr. Ledesma at GI and they said he has a diastasis [...] after his screening YOANA DE PAZ [address] [place], [address], [facility] 01/22/2024 14:23:43 4 text/html ROS as noted in the HPI f/u BP the patient is doing wellwent [...] in sinus rhythm YOANA DE PAZ [address] [place], [address], [facility] 04/10/2024 16:23:40 5 text/html ROS as noted in the HPI c/o knee pain, R the patient reports [...] send out referral YOANA DE PAZ [address] [place], [address], [facility] 12/03/2024 10:39:50 5 text/html ROS as noted in the HPI 6 mos f/u the patient reports that he is doing wellthe patient reports that he is down in weight, has been eating better recently had his teeth pulled, 4 taken out yesterday the patient reports that the eliquis had dropped in biggs, has to be a 30 days supply given free samples in office today the patient has afib, has cardio appt in June for recheckhas been cardio-converted 3x, last one was about a year ago the patient discussed options, like ablation which is unlikely to be effective and discussed the watchman so he can come off the medication for the stroke prevention stable on his medication otherwise no questions YOANA DE PAZ [address] [place], [address], [facility] 04/02/2025 12:02:03
--- OUTSIDE RECORDS SUMMARY | 2025-07-10 17:11 | XMS_ITS | Encounter Summary ---
Author Organization [facility] Address [address] [facility] [address] [place] [address] Phone Care Team Providers Care Washer Engineer Helper Name Role Phone Oswaldo Michael DO Primary Care Provider [phone] Yasir Ledesma DO Unavailable Oswaldo Michael DO Primary Care Provider [phone] Encounter Details Date Type Department Care Team (Late st Contact Info) Description 02/28/2024 [facility] Generated VIRTUAL DEPARTMENT [address] [place] [phone] Unknown, Unknown, Social History Tobacco Use Types [...] 02/28/2024 10:26 AM EDTAssociated Order(s): ENDOSCOPY, COLON [facility] Patient: Farhat Brock : 1950 Account: [id number] [...] bowel preparation was evaluated using the BBPS ([place] Bowel Preparation Scale) with scores of: Right [...] are reviewed for surveillance. Procedure Code(s): - 82432, Colonoscopy, flexible; with biopsy, single or multiple Diagnosis Code(s): - Z12.11, Encounter for screening for malignant neoplasm of colon - N40.0, Benign prostatic hyperplasia without lower urinary tract symptoms - D12.0, Benign neoplasm of cecum - K64.8, Other hemorrhoids CPT(R) - 2023 copyright [employer]. All Rights Reserved. The CPT codes, CCI edits and ICD codes generated are intended as suggestions and were generated based on input data. These codes are preliminary and upon product development review may be revised to meet current [...] 02/28/2024 9:49 AM EDTAssociated Order(s): ENDOSCOPY PROCEDURE [facility] Patient: Farhat Brock : 1950 Account: [id number] [...] Perform a colonoscopy today. Procedure Code(s): - 59585, Esophagogastroduodenoscopy, flexible, transoral; with biopsy, single or multiple Diagnosis Code(s): - R10.13, Epigastric pain - R12, Heartburn - K22.89, Other specified disease of esophagus - K44.9, Diaphragmatic hernia without obstruction or gangrene - K31.89, Other diseases of stomach and duodenum CPT(R) - 2023 copyright [employer]. All Rights Reserved. The CPT codes, CCI edits and ICD codes generated are intended as suggestions and were generated based on input data. These codes are preliminary and upon product development review may be revised to meet current [...] [facility] [address] [place] [address] [place] [address] Oswaldo Sims PA-C [address] [place] [address] [place] [address] [email or web address] documented as of this encounter Procedures Procedure Name Priority Date/Time Associated Diagnosis Comments ENDOSCOPY, COLON 02/28/2024 10:2 6 AM EDT ENDOSCOPY PROCEDURE 02/28/2024 9 :49 AM EDT documented in this encounter Results * ENDOSCOPY, COLON (02/28/2024 10:26 AM EDT) 02/28/2024 10:2 6 AM EDT Narrative Procedure Note Yasir Ledesma DO - 02/28/2024 10:26 AM EDT [facility] Patient: Farhat Brock : 1950 Account: [id number] [...] the bowel preparation was evaluated using the BBPS([place] Bowel Preparation Scale) with scores of: Right [...] are reviewed for surveillance. Procedure Code(s): - 87622, Colonoscopy, flexible; with biopsy, single or multiple Diagnosis Code(s): - Z12.11, Encounter for screening for malignant neoplasm of colon - N40.0, Benign prostatic hyperplasia without lower urinary tractsymptoms - D12.0, Benign neoplasm of cecum - K64.8, Other hemorrhoids CPT(R) - 2023 copyright [employer]. All RightsReserved. The CPT codes, CCI edits and ICD codes generated are intended assuggestions and were generated based on input data. These codes are preliminary andupon product development review may be revised to meet current [...] Ledesma DO - 02/28/2024 9:49 AM EDT [facility] Patient: Farhat Brock : 1950 Account: [id number] [...] Perform a colonoscopy today. Procedure Code(s): - 02418, Esophagogastroduodenoscopy, flexible, transoral; with biopsy, single or multiple Diagnosis Code(s): - R10.13, Epigastric pain - R12, Heartburn - K22.89, Other specified disease of esophagus - K44.9, Diaphragmatic hernia without obstruction or gangrene - K31.89, Other diseases of stomach and duodenum CPT(R) - 2023 copyright [employer]. All RightsReserved. The CPT codes, CCI edits and ICD codes generated are intended assuggestions and were generated based on input data. These codes are preliminary andupon product development review may be revised to meet current [...] documented as of this encounter Care Teams Washer Engineer Helper Relationship Specialty Start Date End Date Oswaldo Michael DO PCP - General 07/04/17 05/26/25 Oswaldo Michael DO [address] [place] [address] PCP - General Internal Medicine 05/27/25 Yasir Ledesma DO [address] [place] [address] Gastroenterology 01/05/24 documented as of this encounter Additional Source Comments The information contained in this document represents components of the legal health record. It is not the complete legal health record.[facility]
--- OUTSIDE RECORDS SUMMARY | 2025-07-10 17:11 | XMS_ITS | Clinical Summary ---
Author Organization [facility] Address [address] [facility] [address] [place] [phone] Phone Care Team Providers Care Welder Apprentice Name Role Phone Yasir Ledesma DO Unavailable Oswaldo Michael DO Primary Care Provider [phone] Allergies Active Allergy Reactions Criticality Noted Date Comments Amoxicillin-Pot Clavulanate Other (See Comments) High 09/26/2022 Dronedarone Other (See Comments) 05/29/2025 Metoprolol Other (See Comments) 05/29/2025 metoprolol Medications lisinopril-hydr oCHLOROthiazide (PRINZIDE,ZESTO RETIC) 20-12.5 mg per tablet Take 1 tablet by mouth daily. 08/24/2022 Active omeprazole (PRILOSEC) 20 MG capsule Take 1 capsule by mouth daily. Active multivitamin with minerals tablet Active atorvastatin (LIPITOR) 20 MG tablet Active lisinopril-hydr oCHLOROthiazide (PRINZIDE,ZESTO RETIC) 20-12.5 mg per tablet Active dilTIAZem (CARDIZEM CD) 180 MG 24 hr capsule Take 180 mg by mouth daily. 01/15/2024 Active folic acid (FOLVITE) 1 MG tablet Take 1,000 mcg by mouth daily. Active thiamine HCl (VITAMIN B-1 ORAL) Take by mouth. 1 qd Active valsartan (DIOVAN) 40 MG tablet Take 40 mg by mouth daily. 01/22/2023 Active pyridoxine, vitamin B6, (B-6) 50 MG tablet Take 50 mg by mouth daily. 01/22/2023 Active apixaban (ELIQUIS) 5 mg tablet Take 5 mg by mouth 2 (two) times a day. 01/22/2023 Active flecainide (TAMBOCOR) 100 MG tablet Active furosemide (LASIX) 40 MG tablet Take 1 tablet by mouth daily. Active tamsulosin (FLOMAX) 0.4 mg Cap Take 1 capsule by mouth nightly at bedtime. Active Hospital, Clinic, or Other Facility Administered Medication Ordered Dose Route Frequency Start Date End Date Status lidocaine (XYLOCAINE) 1% injection 2 mL 2 mL See Adm Inst Once 05/29/2025 08/27/2025 Active Active Problems Problem Noted Date Diagnosed Date Hiatal hernia 02/28/2024 Duodenitis 02/28/2024 Hyperparathyroidism 12/04/2023 Edema of lower extremity 02/14/2023 Atrial fibrillation 02/10/2023 Diastasis recti 12/28/2022 Essential hypertension 10/18/2022 Impaired fasting glucose 04/08/2019 Hypercholesterolemia 04/08/2019 Allergic rhinitis 05/22/2018 Heart murmur 05/22/2018 Soto's esophagus 05/22/2018 Lyme disease 05/22/2018 Raised prostate specific antigen 05/22/2018 Encounters Date Type Department Care Team Description 07/03/2025 9:50 AM EDT Office Visit [facility] at [address] [address] Faye Mccoy, YOGI Plantar wart (Primary Dx) 06/02/2025 9:30 AM EDT Office Visit [facility] [address] [address] Chiquis Evangelista CNP Acute cough (Primary Dx); Nasal congestion; COVID 05/29/2025 10:06 AM EDT - 05/29/2025 11:59 PM EDT Hospital Encounter [address] [address] Gurdeep Machuca PA-C Discharge Disposition: Home or Self Care 05/29/2025 10:00 AM EDT Office Visit [facility] [address] [place] [address] Gurdeep Machuca PA-C Left shoulder pain (Primary [...] Mass Index 26.98 07/03/2025 9:56 AM EDT Plan of Treatment Upcoming Encounters Date Type Department Care Team (Late st Contact Info) Description 07/15/2025 11:20 AM EDT Office Visit [facility] [address] [place] [address] [place] [address] Oswaldo Sims PA-C [address] [place] [address] [place] [address] [email or web address] Health Maintenance Due Date Last Done Comments [...] 2016 INFLUENZA VACCINE (#1) 2025 COVID-19 VACCINE (5 - season) 2025 08/01/2022, 09/23/2021, 01/31/2021, Additional history exists BLOOD PRESSURE 01/01/2026 07/03/2025 RSV VACCINE (1 - 1-dose 75+ series) [...] & B/RSV (Cepheid) (06/02/2025 10:22 AM EDT) [facility] Signature RSV PCR Negative Negative [facility] SARS-CoV-2 (COVID-19) Positive(A) Negative [facility] Influenza A PCR Negative Negative [facility] Influenza B PCR Negative Negative [facility] 06/02/2025 10:2 2 AM EDT 06/02/2025 11:03 AM EDT Chiquis Evangelista MILLER HELPER POINT OF CARE TEST ORDERABL ES Final Result [facility] [address] [address], [facility] [phone] * XR SHOULDER 2 VIEWS (LEFT) (05/29/2025 [...] Ledesma DO - 02/28/2024 10:26 AM EDT [facility] Patient: Farhat Brock : 1950 Account: [...] the bowel preparation was evaluated using the BBPS([place] Bowel Preparation Scale) with scores of: Right [...] are reviewed for surveillance. Procedure Code(s): - 28851, Colonoscopy, flexible; with biopsy, single or multiple Diagnosis Code(s): - Z12.11, Encounter for screening for malignant neoplasm of colon - N40.0, Benign prostatic hyperplasia without lower urinary tractsymptoms - D12.0, Benign neoplasm of cecum - K64.8, Other hemorrhoids CPT(R) - 2023 copyright [employer]. All RightsReserved. The CPT codes, CCI edits and ICD codes generated are intended assuggestions and were generated based on input data. These codes are preliminary andupon metal crafts teacher review may be revised to meet current [...] or Most Recently Relevant to Health Maintenance Insurance MEDICARE PART A & B [facility] MEDICARE PPO BLUE REPLACEMENT [facility] MEDICARE PART A & B [facility] MEDICARE PPO [facility] [place] BLUE REPLAC[place] MEDICARE PART A & B Member Subscriber Plan / Payer (Ef fective 2017-Present) Name:Farhat Brock Member ID:[id number] Relation to Subscriber:Self Name:Farhat Brock Subscriber ID:[id number] Payer ID:[id number] Group ID:Not on file Type:Medicare Address: [address] [place] [address] [place] [address] MEDICARE PPO BLUE REPLACEMENT MEDICARE PART A & B Member Subscriber Plan / Payer (Ef fective 2017-Present) Name:Farhat Brock Member ID:[id number] Relation to Subscriber:Self Name:Farhat Brock [employer] Subscriber ID:[id number] Payer ID:[id number] Group ID:Not on file Type:Medicare Address: [address] MEDICARE PPO BLUE REPLACEMENT Member Subscriber Plan / Payer (Ef fective 2016-Present) Name:Farhat Brock Relation to Subscriber:Self Name:Farhat Brock Payer ID:[id number] (NAIC) Type:Medicare Address[address] A & B [place] BLUE REPLACEMENT MEDICARE PART A & B [facility] MEDICARE PPO BLUE REPL[address] [place], [place] [id number] MEDICARE PART A & B [facility] MEDICARE PPO BLUE REPLACEMENT [facility] MEDICARE PART A & B [place] BLUE REPLACEMENT [facility] MEDICARE PART A & B [place] BL[place] RE[place]ACEMENT Care Teams Welder Apprentice Relationship Specialty Start Date End Date Oswaldo Michael DO [address] [place] [address] [email or web address] PCP - General Internal Medicine 05/27/25 Yasir Ledesma DO [address] [place] [address] Gastroenterology 01/05/24 Additional Source Comments The information contained in this document represents components of the legal health record. It is not the complete legal health record.[facility]
== END 2025-07-10 14:12 | disposition home or self-care (01) ==
LOC: HO.HCS 13:33
PROVIDERS: PCP Internal Medicine; Visit Provider Internal Medicine Cardiovascular Disease
DX: I48.19 Other persistent atrial fibrillation (principal); I35.0 Nonrheumatic aortic (valve) stenosis; Z86.79 Personal history of other diseases of the circulatory system
CPT/HCPCS: 93010; 99214; G2211

== ENCOUNTER 2025-07-10 13:32 | Outpatient (REF) | payer MEDICARE, SELFPAY ==
[2025-07-10 15:13] LABS: Anion Gap 8 (12-20); Blood Urea Nitrogen 13 mg/dL (9-16); Calcium 10.2 mg/dL (8.4-10.2); Carbon Dioxide 29 mmol/L (22-29); Chloride 106 mmol/L (96-108); Estimated Glomerular Filt Rate > 60; Potassium 4.2 mmol/L (3.3-5.1); Sodium 139 mmol/L (135-145)
== END 2025-07-10 13:33 | disposition home or self-care (01) ==
LOC: HO.LAB 13:32
PROVIDERS: PCP Internal Medicine; Visit Provider Internal Medicine Cardiovascular Disease
DX: I48.19 Other persistent atrial fibrillation (principal); I35.0 Nonrheumatic aortic (valve) stenosis; Z86.79 Personal history of other diseases of the circulatory system; Z79.01 Long term (current) use of anticoagulants
CPT/HCPCS: 36415; 80048; 93005; 99212